=== PATIENT | male | born 1970 | race Caucasian/White ===

== ENCOUNTER 2023-10-29 02:33 | Inpatient (IN) | payer OTHER, SELFPAY ==
[2023-10-29] MEDS ORDERED: MORPHINE 4 MG/ML SYR ONE (03:30)
[2023-10-29] MEDS ORDERED: ONDANSETRON 4 MG/2 ML VIAL ONE ×2 (03:30→05:59)
[2023-10-29 03:34] LABS: Absolute Lymphocytes (CBC) 1.6 K/uL (0.7-4.9); Hematocrit 48.3 % (39.6-49.0); Lymphocytes % 13.8 % (15.3-44.8); MCV 89.7 fL (80-100); Platelets 202 thou/uL (152-406); RBC Red Blood Cell Count 5.38 M/uL (4.33-5.43)
[2023-10-29 03:51] LABS: Albumin 3.3 g/dL (3.4-5.0); Bilirubin Total 0.7 mg/dL (0.2-1.0); Potassium 3.9 mEq/L (3.5-5.1); Protein, Total 7.2 g/dL (6.4-8.2)
[2023-10-29 04:36] LABS: Specific Gravity 1.018 (1.005-1.030); Urine Bacteria None Seen /HPF (<20); Urine Bilirubin NEGATIVE (Negative); Urine Blood Negative (Negative); Urine Clarity Clear (Clear); Urine Color Light-Yellow (Yellow); Urine Glucose NEGATIVE (Negative); Urine Mucus Slight /HPF (None Seen); Urine Protein 1+ (Negative); Urine RBC <5 /HPF (None Seen); Urine Urobilinogen Normal (Normal); Urine WBC Clump Rare /HPF (None Seen); Urine pH 5.5 (5.0-7.0)
[2023-10-29] MEDS ORDERED: LOSARTAN POTASSIUM 50 MG TABLET ONE (06:00)
[2023-10-29] MEDS ORDERED: HYDRALAZINE HCL 20 MG/ML VIAL ONE (06:04)
--- NOTE | 2023-10-29 07:15 | EDPHYS ---
Physician Documentation [facility] Name: Kuldeep Abdullahi Age: 53 yrs Sex: Male : 1970 Arrival Date: 10/29/2023 Time: 02:33 Bed 7 Private MD: ED Physician Adam Woods HPI: 10/29 04:17 This 53 yrs old Male presents to ER via EMS with unknown complaint. kdr 04:17 This 53 yrs old Male presents to ER via EMS with complaints of Left upper quadrant and kdr flank pain. 04:21 This 53 yrs old Male presents to ER via EMS with complaints of left flank and Upper kdr quadrant pain. 04:17 Patient presents today with left upper quadrant and flank pain. The patient states that kdr this is pain that he has had intermittently and persistently for a year or more. He states that he has been diagnosed with renal calculi at [facility] in [place]. He has subsequently not had follow-up. Patient states that chronically he has mild to moderate pain in his left upper quadrant and left flank with occasions of severe pain in the same region. Normally the pain comes and goes fairly quickly. Occasionally the pain is much longer lasting as it is today. There is otherwise nothing new about the pain aside from his persistence and severity today. The patient is otherwise nontoxic-appearing. Onset: The symptoms/episode began/occurred suddenly, just prior to arrival. Severity of symptoms: At their worst the symptoms were severe incapacitating in the emergency department the symptoms have improved markedly. The patient has experienced similar episodes in the past, multiple times. The patient has not recently seen a physician. Historical: - Allergies: 02:55 Lisinopril; jw7 - Home Meds: 02:55 None [Active]; jw7 - PMHx: 02:55 Hypertension; jw7 - PSHx: 02:55 Appendectomy; Left Knee; jw7 - Immunization history:: Adult Immunizations up to date, Client reports receiving the 2nd dose of the Covid vaccine, Last tetanus immunization: unknown, Flu vaccine is not up to date. - Social history:: Smoking status: Patient reports the use of cigarette tobacco products, smokes one pack cigarettes per day. Patient/guardian denies using alcohol, street drugs, IV drugs. ROS: 04:21 Constitutional: Negative for fever, chills, and weight loss, Eyes: Negative for injury, kdr pain, redness, and discharge, Neck: Negative for injury, pain, and swelling, Cardiovascular: Negative for chest pain, palpitations, and edema, Respiratory: Negative for shortness of breath, cough, wheezing, and pleuritic chest pain, : Negative for injury, bleeding, discharge, and swelling, MS/Extremity: Negative for injury and deformity, Skin: Negative for injury, rash, and discoloration, Neuro: Negative for headache, weakness, numbness, tingling, and seizure activity. Psych: Negative for depression, anxiety, suicide ideation, homicidal ideation, and hallucinations, Allergy/Immunology: Negative for hives, rash, and allergies, Endocrine: Negative for neck swelling, polydipsia, polyuria, polyphagia, and marked weight changes, Hematologic/Lymphatic: Negative for swollen nodes, abnormal bleeding, and unusual bruising, 04:21 Abdomen/GI: Positive for abdominal pain, nausea, Negative for diarrhea, constipation, anorexia, dysphagia, hematemesis, black/tarry stool, rectal pain, rectal bleeding, bowel incontinence, 04:21 Back: Positive for pain at rest, pain with movement, flank pain, on the left, Exam: 04:21 Constitutional: This is a well developed, well nourished patient who is awake, alert, kdr and in mild to moderate distress. Head/Face: Normocephalic, atraumatic. Eyes: Pupils equal round and reactive to light, extra-ocular motions intact. Lids and lashes normal. Conjunctiva and sclera are non-icteric and not injected. Cornea within normal limits. Periorbital areas with no swelling, redness, or edema. Neck: Trachea midline, no thyromegaly or masses palpated, and no cervical lymphadenopathy. Supple, full range of motion without nuchal rigidity, or vertebral point tenderness. No Meningismus. Chest/axilla: Normal chest wall appearance and motion. Nontender with no deformity. No lesions are appreciated. Cardiovascular: Regular rate and rhythm with a normal S1 and S2. No gallops, murmurs, or rubs. Normal PMI, no JVD. No pulse deficits. Respiratory: Lungs have equal breath sounds bilaterally, clear to auscultation and percussion. No rales, rhonchi or wheezes noted. No increased work of breathing, no retractions or nasal flaring. Skin: Warm, dry with normal turgor. Normal color with no rashes, no lesions, and no evidence of cellulitis. MS/ Extremity: Pulses equal, no cyanosis. Neurovascular intact. Full, normal range of motion. Neuro: Awake and alert, GCS 15, oriented to person, place, time, and situation. Cranial nerves II-XII grossly intact. Motor strength 5/5 in all extremities. Sensory grossly intact. Cerebellar exam normal. Normal gait. Psych: Awake, alert, with orientation to person, place and time. Behavior, mood, and affect are within normal limits. 04:21 Abdomen/GI: Inspection: abdomen appears normal, Bowel sounds: active, Palpation: soft, mild abdominal tenderness, in the anterior aspect of left lateral abdomen, posterior aspect of left lateral abdomen and left upper quadrant, rebound tenderness, is not appreciated, Vital Signs: 02:52 BP 203 / 137; Pulse 100; Resp 16 S; Temp 98.5(O); Pulse Ox 95% on R/A; Weight 74.84 kg; jw7 Height 5 ft. 8 in. ; Pain 3/10; 05:20 BP 198 / 130; Pulse 102; Pulse Ox 92% on 4 lpm NC; tm6 06:20 BP 189 / 118; Pulse 98; Resp 16 S; Pulse Ox 92% on 4 lpm NC; jw7 07:58 BP 188 / 102; Pulse 99; Resp 18; Pulse Ox 90% on R/A; ld1 02:52 Body Mass Index 25.09 (74.84 kg, 172.72 cm) [facility] 02:52 Pain Scale: Adult jw7 MDM: 04:21 Data reviewed: vital signs, nurses notes, lab test result(s), radiologic studies. kdr 07:15 Patient medically screened. [facility] 10/29 02:54 Order name: CBC with Diff; Complete Time: 04:15 [facility] 10/29 02:54 Order name: CMP; Complete Time: 04:15 [facility] 10/29 02:54 Order name: Lipase; Complete Time: 04:15 [facility] 10/29 02:54 Order name: Urinalysis w/ reflexes; Complete Time: 04:55 [facility] 10/29 05:53 Order name: Troponin High Sensitivity; Complete Time: 07:56 [facility] 10/29 10:10 Order name: Troponin High Sensitivity [facility] 10/29 10:58 Order name: Lipid Profile [facility] 10/29 10:58 Order name: Lipid Profile [facility] 10/29 10:58 Order name: Troponin High Sensitivity [facility] 10/29 10:58 Order name: Troponin High Sensitivity [facility] 10/29 10:58 Order name: Troponin High Sensitivity [facility] 10/29 02:54 Order name: CT Stone Protocol [facility] 10/29 06:07 Order name: CT Chest W/ Con; Complete Time: 07:56 kdr 10/29 10:58 Order name: Echo with Doppler [facility] 10/29 10:58 Order name: CONS Physician Consult [facility] 10/29 02:54 Order name: IV Saline Lock; Complete Time: 03:30 kdr 10/29 02:54 Order name: Labs collected and sent; Complete Time: 03:30 kdr 10/29 05:53 Order name: EKG - Nurse/Tech; Complete Time: 06:30 kdr Administered Medications: 03:40 Drug: Ondansetron IVP 4 mg IVP once; over 2 minutes Route: IVP; Site: left antecubital; jw7 05:53 Follow up: Response: No adverse reaction; Marked relief of symptoms jw7 03:40 Drug: morphine IVP or IV 4 mg IVP once over 4 mins Route: IVP; Infused Over: 4 mins; jw7 Site: left antecubital; 05:53 Follow up: Response: No adverse reaction; Marked relief of symptoms jw7 06:06 Not Given (Other Intervention Used; Change order): [id number] mg PO once kdr 06:17 Drug: Ondansetron IVP 4 mg IVP once; over 2 minutes Route: IVP; Site: left antecubital; jw7 06:17 Drug: hydrALAZINE IVP 10 mg IVP once Route: IVP; Site: left antecubital; jw7 Disposition Summary: 10/29/23 07:15 Hospitalization Ordered Notes: Hospitalization Status: Inpatient Admission kdr Provider: Butch Beyer Condition: Fair kdr Problem: an acute exacerbation kdr Symptoms: have improved kdr Bed/Room Type: Standard kdr Location: Intensive Care Unit(10/29/23 11:06) eb Room Assignment: 2-(10/29/23 11:06) eb Diagnosis - [place] Pain kdr - Hypoxia (82-85% RA) kdr Forms: - Medication Reconciliation Form kdr - SBAR form kdr - Leadership Thank You Letter kdr Signatures: Dispatcher [employer] Adam Gonzales MD MD kdr Botello, Elizabeth eb Waits, Jodi, RN RN jw7 Vanessa Marques, MANAGER PLANT MANAGER PLANT 12 Corrections: (The following items were deleted from the chart) 11: 07:15 Telemetry/MedSurg (Inpatient) kimmy pepe 11: 07:15 kimmy pepe
--- NOTE | 2023-10-29 07:15 | ER ---
Nurse's Notes [facility] Name: Kuldeep Abdullahi Age: 53 yrs Sex: Male : 1970 Arrival Date: 10/29/2023 Time: 02:33 Bed 7 Private MD: Diagnosis: [place] Pain;Hypoxia (82-85% RA) Presentation: 10/29 02:52 Chief complaint: Patient states: "I've been having Left Upper Quadrant pain that comes jw7 and goes and has gotten worse. The pain never goes completely away it just decreases slightly". Coronavirus screen: At this time, the client does not indicate any symptoms associated with coronavirus-19. Ebola Screen: No symptoms or risks identified at this time. Initial Sepsis Screen: Does the patient meet any 2 criteria? No. Patient's initial sepsis screen is negative. Does the patient have a suspected source of infection? No. Patient's initial sepsis screen is negative. Risk Assessment: Do you want to hurt yourself or someone else? Patient reports no desire to harm self or others. Onset of symptoms was October 29, 2023. 02:52 Method Of Arrival: EMS: [facility] 7 02:52 Acuity: JUS 3 jw7 03:01 Care prior to arrival: IV initiated. 20 GA, in the left antecubital area. jw7 Triage Assessment: 02:55 General: Appears in no apparent distress. uncomfortable, Behavior is calm, cooperative. jw7 Pain: Complains of pain in left upper quadrant Pain radiates to right upper quadrant Pain currently is 3 out of 10 on a pain scale. Quality of pain is described as squeezing, throbbing, Pain began gradually, Is episodic. EENT: No deficits noted. No signs and/or symptoms were reported regarding the EENT system. Neuro: Maldonado Agitation-Sedation Scale (RASS): 0 - Alert and Calm Level of Consciousness is awake, alert, obeys commands, Oriented to person, place, time, situation. Cardiovascular: Capillary refill < 3 seconds Clubbing of nail beds is absent JVD is absent Patient's skin is warm and dry. Respiratory: Airway is patent Trachea midline Respiratory effort is even, unlabored, Respiratory pattern is regular, symmetrical. GI: Abdomen is flat, non-distended, Abdomen is tender to palpation during painful episodes, but non-tender when episodes are over. : No deficits noted. No signs and/or symptoms were reported regarding the genitourinary system. Derm: Skin is intact, is healthy with good turgor, Skin is dry, Skin is normal, Skin temperature is warm. Musculoskeletal: Circulation, motion, and sensation intact. Range of motion: intact in all extremities. Historical: - Allergies: 02:55 Lisinopril; jw7 - Home Meds: 02:55 None [Active]; jw7 - PMHx: 02:55 Hypertension; jw7 - PSHx: 02:55 Appendectomy; Left Knee; jw7 - Immunization history:: Adult Immunizations up to date, Client reports receiving the 2nd dose of the Covid vaccine, Last tetanus immunization: unknown, Flu vaccine is not up to date. - Social history:: Smoking status: Patient reports the use of cigarette tobacco products, smokes one pack cigarettes per day. Patient/guardian denies using alcohol, street drugs, IV drugs. Screenin:01 [facility] ED Fall Risk Assessment (Adult) History of falling in the last 3 months, jw7 including since admission No falls in past 3 months (0 pts) Score/Fall Risk Level 0 - 2 = Low Risk Oriented to surroundings, Maintained a safe environment, Educated pt \\T\\ family on fall prevention, incl call for assistance when getting out of bed. Abuse screen: Denies threats or abuse. Denies injuries from another. Nutritional screening: No deficits noted. Tuberculosis screening: No symptoms or risk factors identified. Assessment: 03:01 General: See Triage Assessment. jw7 04:00 Reassessment: Patient appears in no apparent distress at this time. No changes from jw7 previously documented assessment. Patient and/or family updated on plan of care and expected duration. Pain level reassessed. Patient is alert, oriented x 3, equal unlabored respirations, skin warm/dry/pink. 05:00 Reassessment: Patient appears in no apparent distress at this time. Patient and/or jw7 family updated on plan of care and expected duration. Pain level reassessed. Patient is alert, oriented x 3, equal unlabored respirations, skin warm/dry/pink. Patient states symptoms have improved. 06:00 Reassessment: Patient appears in no apparent distress at this time. No changes from jw7 previously documented assessment. Patient and/or family updated on plan of care and expected duration. Pain level reassessed. Patient is alert, oriented x 3, equal unlabored respirations, skin warm/dry/pink. 07:58 General: Appears in no apparent distress. comfortable, Behavior is calm, cooperative, ld1 appropriate for age. Pain: Complains of pain in abdomen Pain does not radiate. Neuro: Level of Consciousness is awake, alert, obeys commands, Oriented to person, place, time, situation. Cardiovascular: Capillary refill < 3 seconds Patient's skin is warm and dry. Respiratory: Airway is patent Respiratory effort is even, unlabored. GI: Abdomen is flat, non-distended. : No signs and/or symptoms were reported regarding the genitourinary system. EENT: No signs and/or symptoms were reported regarding the EENT system. Derm: No signs and/or symptoms reported regarding the dermatologic system. Vital Signs: 02:52 BP 203 / 137; Pulse 100; Resp 16 S; Temp 98.5(O); Pulse Ox 95% on R/A; Weight 74.84 kg; jw7 Height 5 ft. 8 in. ; Pain 3/10; 05:20 BP 198 / 130; Pulse 102; Pulse Ox 92% on 4 lpm NC; tm6 06:20 BP 189 / 118; Pulse 98; Resp 16 S; Pulse Ox 92% on 4 lpm NC; jw7 07:58 BP 188 / 102; Pulse 99; Resp 18; Pulse Ox 90% on R/A; ld1 02:52 Body Mass Index 25.09 (74.84 kg, 172.72 cm) jw7 02:52 Pain Scale: Adult jw7 ED Course: 02:40 Patient arrived in ED. jw7 02:40 Adam Woods MD is Attending Physician. kdr 02:55 Triage completed. jw7 03:01 Patient has correct armband on for positive identification. Bed in low position. Call jw7 light in reach. Side rails up X2. 03:01 Arm band placed on. jw7 03:23 CT Stone Protocol In Process Unspecified. EDMS 07:09 Attending Physician role handed off by Adam Woods MD ms3 07:09 Robinson Mitchell DO is Attending Physician. ms3 07:09 Adam Woods MD is Attending Physician. ms3 07:12 CT Chest W/ Con In Process Unspecified. EDMS 07:14 Butch Beyer is Hospitalizing Provider. kdr 12:14 Troponin High Sensitivity Sent. ld1 Administered Medications: 03:40 Drug: Ondansetron IVP 4 mg IVP once; over 2 minutes Route: IVP; Site: left antecubital; jw7 05:53 Follow up: Response: No adverse reaction; Marked relief of symptoms jw7 03:40 Drug: morphine IVP or IV 4 mg IVP once over 4 mins Route: IVP; Infused Over: 4 mins; jw7 Site: left antecubital; 05:53 Follow up: Response: No adverse reaction; Marked relief of symptoms jw7 06:06 Not Given (Other Intervention Used; Change order): [id number] mg PO once kdr 06:17 Drug: Ondansetron IVP 4 mg IVP once; over 2 minutes Route: IVP; Site: left antecubital; jw7 06:17 Drug: hydrALAZINE IVP 10 mg IVP once Route: IVP; Site: left antecubital; jw7 Outcome: 07:15 Decision to Hospitalize by Provider. kdr 12:48 Patient left the ED. ld1 Signatures: Dispatcher [employer] EDMS Adam Woods MD MD kdr Robinson Mitchell DO DO ms3 Noni Mitchell RN RN ld1 Starla Jane RN RN jw7 Chetan Mosley RN RN tm6 Corrections: (The following items were deleted from the chart) 06:44 06:35 General: Attempted to call report, nurse will call back. jw7 jw7
--- NOTE | 2023-10-29 07:49 | RAD REPORT ---
EXAM DESCRIPTION: CT - Thorax W/ Con - 10/29/2023 7:10 am CLINICAL HISTORY: SOB COMPARISON: No comparisons TECHNIQUE: Axial thin cut images of the chest were obtained following intravenous administration of 95 mL Isovue-300. Multiplanar reformats were generated and reviewed. All CT scans are performed using dose optimization technique as appropriate and may include automated exposure control or mA/KV adjustment according to patient size. FINDINGS: No mass or infiltrate in the lung parenchyma. Platelike dependent atelectatic changes. No pleural thickening or pleural effusion. No pneumothorax. No abnormal mediastinal or hilar masses or lymphadenopathy seen. No significant aortic or pulmonary a rtery findings. Proximal pulmonary arteries are patent. No chest wall mass or abnormal axillary lymphadenopathy. Evaluation of the solid abdominal structures reveals no suspicious findings. Small renal cortical cys ts up to 1 cm bilaterally. IMPRESSION: No acute process within the chest.
--- NOTE | 2023-10-29 08:08 | P.HP ---
Patient History Date of Service: 10/29/23 Allergies No Known Allergies Allergy (Unverified 10/05/17 19:35) Physical Examination - Studies Laboratory Data (last 24 hrs) 10/29/23 10/29/23 03:26 03:26 WBC 11.60 H Hgb 16.5 Hct 48.3 Plt Count 202 Sodium 137 Potassium 3.9 BUN 27 H Creatinine 1.30 Glucose 130 H Total Bilirubin 0.7 AST 88 H ALT 95 H Alkaline Phosphatase 129 H Lipase 26 Assessment and Plan - Advance Directives Does patient have a Living Will: No Does patient have a Durable POA for Healthcare: No
[2023-10-29] MEDS ORDERED: HYDRALAZINE HCL 20 MG/ML VIAL IV PRN (10:52)
[2023-10-29] MEDS ORDERED: ACETAMINOPHEN 500 MG TAB PO PRN (10:52)
[2023-10-29] MEDS ORDERED: MORPHINE 4 MG/ML SYR IV PRN (10:52)
[2023-10-29] MEDS ORDERED: HYDROMORPHONE HCL 0.5 MG/0.5 ML INJ IV ONE (10:56)
[2023-10-29 13:11] VITALS: BMI 25.4
[2023-10-29] MEDS ORDERED: METOPROLOL TAR 50 MG TAB ONE (13:23)
[2023-10-29] MEDS ORDERED: HYDRALAZINE HCL 25 MG TABLET ONE (13:24)
[2023-10-29] MEDS: METOPROLOL TAR 50 MG TAB PO SCH ×2 (13:25→20:32)
[2023-10-29] MEDS: HYDRALAZINE HCL 25 MG TABLET PO SCH ×2 (13:26→20:32)
--- NOTE | 2023-10-29 15:15 | RAD REPORT ---
EXAM DESCRIPTION: CT - Stone Protocol - 10/29/2023 6:31 am CLINICAL HISTORY: Male, 53 years old, left flank pain COMPARISON: None. TECHNIQUE: CT acquisition of the abdomen and pelvis without contrast. Coronal and sagittal reformatt ed images provided. This exam was performed according to departmental dose-optimization program which includes automated exposure control, adjustment of the mA and/or kV according to patient size, and/o r use of iterative reconstruction technique. FINDINGS: SUPPORTIVE DEVICES: None. LOWER CHEST: Moderate cardiomegaly with interlobular septal thickening in the left greater than right lung bases. No airspace consolidation. ABDOMEN AND PELVIS: Lack of intravenous contrast limits evaluation of the abdominal and pelvic viscera and vascular struc tures. Liver: Unremarkable. Gallbladder and bile ducts: Unremarkable. Pancreas: Unremarkable. Spleen: Unremarkable. Adrenal glands: Unremarkable. Kidneys and ureters: No evidence of obstruction. Nonobstructing 2 mm stone in the right infrarenal co llecting system. Bladder: Nondistended without evident abnormality. Reproductive organs: Unremarkable as visualized. GI tract: Normal caliber without wall thickening. Post appendectomy change. Distal colonic diverticul osis without diverticulitis. Lymph nodes: No obvious adenopathy. Peritoneum: No evidence of ascites, fluid collection, or free air. Abdominal wall: No significant hernia. Vessels: Atherosclerosis without evidence of aneurysm. MUSCULOSKELETAL: No acute osseous abnormality. Degenerative change of the spine and pelvis. IMPRESSION: 1. No acute abdominopelvic finding or evidence of urinary obstruction. 2. Nonobstructing small right nephrolith. 3. Uncomplicated colonic diverticulosis. 4. Cardiomegaly and probable cardiogenic interstitial edema in the lung bases. Electronically signed by: Clemente Frank MD 10/29/2023 03:43 AM [employer] SUR[employer]YOR Due to temporary technical issues with the PACS/Fluency reporting system, reports are being signed by the in house radiologists without review as a courtesy to insure prompt reporting. The interpreting radiologist is fully responsible for the content of the report.
[2023-10-29] MEDS ORDERED: INFLUENZA VACCINE (for 6+ mo) 0.5 ML DOSE IMVAC ONE (16:00)
--- NOTE | 2023-10-29 17:12 | CON ---
Date of Consultation: 10/29/2023 Reason For Consultation: Elevated troponin. History Of Present Illness: 53-year-old male with a past medical history of hypertension, presented to the emergency room with abdominal pain, significant profound sweats and a severely elevated blood pressure in the 240 range. He said that this has been going on for some time and comes as episodes a nd attacks and also he does get some shortness of breath. Denies having any chest pain. Past Medical History: Hypertension. Medications: Refer to reconciliation sheet for detailed list. Allergies: NO KNOWN DRUG ALLERGIES. Family History: No premature coronary artery disease or cancer. Social History: Does not smoke or drink. Does not use any drugs. Review of Systems: All systems reviewed and they are negative except as mentioned in the HPI. Physical Examination: Vital Signs: Reviewed. Head and Neck: Pupils are equal, reactive to light. Intact eye movements. No JVD. No cervical lym phadenopathy. Neck is supple. Thyroid is not enlarged. Lungs: Clear to auscultation bilaterally. No rhonchi, wheezing, crackles. No accessory muscle use. Heart: Regular rate and rhythm. No extra sounds. Abdomen: Soft, nontender. Bowel sounds positive. No organomegaly. No masses or hernia. No rigidi ty or rebound. Extremities: No edema, clubbing, or cyanosis. Intact pulses. Skin: No rash or nodule. Neurologic: Alert, awake, oriented x3. No acute focal deficits appreciated. Investigations: Troponin 312 and then 330, BUN 27, creatinine 1.3, and hemoglobin 16.5. Assessment And Recommendations: 1.Elevated troponin. No chest pain. This is demand ischemia due to the hypertensive emergency. Pr eds adequate control of his blood pressure. 2.Hypertensive emergency. I believe this patient might be having this hypertensive crisis due to ad renal gland tumor, probably pheochromocytoma. He is on multiple antihypertensive agents to be maximi zed to get his blood pressure under control and I recommend workup for pheochromocytoma with a 24-sky r urine catecholamine tests and also might benefit from the abdominal MRI and a transfer to [facility] for this particular issue. 3.Severe left ventricular hypertrophy with the severe systolic heart failure, probably due to underl dany condition which is the hypertensive disease, but this needs further workup. 4.Elevated troponin. Again, this is likely demand ischemia. Further workup is indicated at least a stress test. Patient is not symptomatic, at this point, and I believe it is due to the elevation of his blood pressure. This patient will probably be served at a higher level of care facility. /RHONDA Voice ID: [id number] Report ID: [id number]
[2023-10-29] MEDS: ATORVASTATIN 40 MG TAB PO SCH (20:32)
[2023-10-29] MEDS ORDERED: LOSARTAN POTASSIUM 50 MG TABLET PO SCH (21:00)
--- NOTE | 2023-10-29 21:55 | P.HP ---
Certification for Inpatient Patient admitted to: Inpatient With expected LOS: >2 Midnights Patient will require the following post-hospital care: None Practitioner: I am a practitioner with admitting privileges, knowledge of patient current condition, hospital course, and medical plan of care. Services: Services provided to patient in accordance with Admission requirements found in Title 42 Section 412.3 of the Code of Federal Regulations Patient History Date of Service: 10/29/23 Reason for admission: Abdominal pain/chest discomfort/hypertensive emergency History of Present Illness: Patient is a 53-year-old gentleman whose had frequent abdominal discomfort. Patient has had similar complaints for the last couple of years. He developed severe abdominal pain along with diaphoresis and he feels like he is not able to do anything. The attacks normally last for about 30 minutes to an hour. They go away and he is able to continue with functioning during his day. They are normally exacerbated by activity. Patient states he was seen about a year ago at [facility] and was found to have nephrolithiasis. Patient has never had any cardiac workup. He has a history of tobacco use. Patient had a similar episode again this morning and in the emergency room was found to have a blood pressure of 230/130. Patient was also tachycardic. Patient was having severe abdominal discomfort and felt better after abdominal pain medication. Patient will be admitted to the hospital for further evaluation. Allergies No Known Allergies Allergy (Unverified 10/05/17 19:35) - Past Medical/Surgical History Has patient received pneumonia vaccine in the past: No Diabetic: No -: Nephrolithiasis -: Appendectomy -: left knee surgery - Family History Father History Unknown: Yes Medical History: Heart disease, Hypertension, GI disease Mother History Unknown: Yes Medical History: Heart disease, Diabetes, Cancer - Social History Smoking Status: Current some day smoker Alcohol use: No CD- Drugs: No Caffeine use: Yes Place of Residence: Home Review of Systems 10-point ROS is otherwise unremarkable Physical Examination - Vital Signs Temperature: 98.5 F Blood Pressure: 144/100 Pulse: 78 Respirations: 21 Pulse Ox (%): 97 - Physical Exam General: Alert, In no apparent distress, Oriented x3 HEENT: Atraumatic, PERRLA, Mucous membr. moist/pink, EOMI, Sclerae nonicteric Neck: Supple, 2+ carotid pulse no bruit, No LAD, Without JVD or thyroid abnormality Respiratory: Clear to auscultation bilaterally, Normal air movement Cardiovascular: Regular rate/rhythm, Normal S1 S2, Systolic murmur Gastrointestinal: Normal bowel sounds, Soft and benign, Non-distended, No tenderness Musculoskeletal: No clubbing, No swelling, No tenderness Integumentary: No rashes Neurological: Normal gait, Normal speech, Normal strength at 5/5 x4 extr, Normal tone, Sensation intact, Cranial nerves 3-12 intact, Normal affect Lymphatics: No axilla or inguinal lymphadenopathy - Studies Laboratory Data (last 24 hrs) 10/29/23 10/29/23 03:26 03:26 WBC 11.60 H Hgb 16.5 Hct 48.3 Plt Count 202 Sodium 137 Potassium 3.9 BUN 27 H Creatinine 1.30 Glucose 130 H Total Bilirubin 0.7 AST 88 H ALT 95 H Alkaline Phosphatase 129 H Lipase 26 Assessment & Plan - Problems (Diagnosis) (1) Abdominal pain Current Visit: Yes Status: Acute (2) Hypertensive emergency Current Visit: Yes Status: Acute (3) Tachyarrhythmia Current Visit: Yes Status: Acute (4) Non-STEMI (non-ST elevated myocardial infarction) Current Visit: Yes Status: Acute (5) Hypertrophic cardiomyopathy Current Visit: Yes Status: Acute (6) HFrEF (heart failure with reduced ejection fraction) Current Visit: Yes Status: Acute - Plan Plan: 1. Patient with abdominal pain along with chest discomfort and hypertensive emergency. Patient's echocardiogram revealed hypertrophic cardiomyopathy with an ejection fraction of roughly 20%. Seen by cardiology and no aggressive cardiac intervention at this time. Patient will need extensive cardiac workup as an outpatient. Patient will be started on medication for strict blood pressure control. Will gradually reduce blood pressure slowly. Patient's blood pressure currently was 190/110. Will continue to reduce the blood pressure slowly over the next 24 hours. Low-dose diuretic along with beta-carlo therapy. Will probably start Entresto in the morning. Echocardiogram completed. Appreciate cardiology input. Will also work him up for secondary causes of hypertensive disease. Patient with hypertensive emergency and we will go ahead and check a renin, aldosterone, cortisol, and catecholamine levels. With his abdominal pain and diaphoresis along with the tachycardia and hypertension may need to also check for porphyrins. Since were doing 24-hour urine collection for the catecholamines I will also check patient patient's urine porphyrin levels. Patient will need monitoring in the intensive care unit. Critical care time spent on patient care was greater than 50 minutes. Discharge Plan: Home Plan to discharge in: Greater than 2 days - Advance Directives Does patient have a Living Will: No Does patient have a Durable POA for Healthcare: Yes - Code Status/Comfort Care Code Status Assessed: Yes Code Status: Full Code Critical Care: Yes Time Spent Managing PTS Care (In Minutes): 55
[2023-10-30] MEDS ORDERED: HYDRALAZINE HCL 20 MG/ML VIAL ONE (02:15)
[2023-10-30] MEDS: ALPRAZOLAM 0.25 MG TABLET PO PRN ×2 (02:22→21:17)
[2023-10-30 04:53] LABS: Absolute Lymphocytes (CBC) 1.7 K/uL (0.7-4.9); Hematocrit 48.6 % (39.6-49.0); Lymphocytes % 20.3 % (15.3-44.8); MCV 91.4 fL (80-100); MPV 9.2 fL (7.6-11.3); Platelets 192 thou/uL (152-406); RBC Red Blood Cell Count 5.31 M/uL (4.33-5.43)
[2023-10-30 05:15] LABS: Bilirubin Total 0.6 mg/dL (0.2-1.0); Magnesium 2.2 mg/dL (1.6-2.4); Phosphorus 2.9 mg/dL (2.5-4.9); Protein, Total 6.8 g/dL (6.4-8.2)
[2023-10-30] MEDS ORDERED: ASPIRIN 81 MG CHEWABLE TABLET ONE (08:07)
[2023-10-30] MEDS: METOPROLOL TAR 50 MG TAB PO SCH ×3 (08:12→21:16)
[2023-10-30] MEDS: ASPIRIN EC 81 MG TAB PO SCH (08:12)
[2023-10-30] MEDS: HYDRALAZINE HCL 25 MG TABLET PO SCH ×3 (08:13→21:16)
[2023-10-30] MEDS: ENOXAPARIN 40 MG/0.4 ML SQ SCH (08:13)
[2023-10-30] MEDS: SACUBITRIL/VALSARTAN 24/26 MG TAB PO SCH ×2 (08:14→21:16)
[2023-10-30] MEDS: ATORVASTATIN 40 MG TAB PO SCH (21:17)
[2023-10-31] MEDS: ALPRAZOLAM 0.25 MG TABLET PO PRN ×2 (04:30→20:59)
[2023-10-31] MEDS: ASPIRIN EC 81 MG TAB PO SCH (09:13)
[2023-10-31] MEDS: HYDRALAZINE HCL 25 MG TABLET PO SCH ×3 (09:13→19:35)
[2023-10-31] MEDS: METOPROLOL TAR 50 MG TAB PO SCH ×3 (09:13→19:35)
[2023-10-31] MEDS: SACUBITRIL/VALSARTAN 24/26 MG TAB PO SCH ×2 (09:13→19:36)
[2023-10-31] MEDS: ENOXAPARIN 40 MG/0.4 ML SQ SCH (09:14)
[2023-10-31] MEDS: ATORVASTATIN 40 MG TAB PO SCH (19:35)
[2023-11-01] MEDS: ALPRAZOLAM 0.25 MG TABLET PO PRN (04:51)
[2023-11-01 05:56] VITALS: O2SAT 98
--- NOTE | 2023-11-01 07:11 | ECHO ---
HEIGHT: 5 ft 8 in WEIGHT: 167 lb 0 oz DATE OF STUDY: 10/29/[address]: Arlet Jo MD 2-DIMENSIONAL: YES M.MODE: YES DOPPLER: YES COLOR FLOW: YES TDS: PORTABLE: YES DEFINITY: BUBBLE STUDY: DIAGNOSIS: ANTERIOR MYOCARDIAL INFARCTION CARDIAC HISTORY: CATHERIZATION: NO SURGERY: NO PROSTHETIC VALVE: NO PACEMAKER: NO MEASUREMENTS (cm) DIASTOLIC (NORMALS) SYSTOLIC (NORMALS) IVSd 1.6 (0.6-1.2) LA Diam 3.7 (1.9-4.0) LVEF 25% LVIDd 5.1 (3.5-5.7) LVIDs 4.5 (2.0-3.5) %FS 11% LVPWd 1.6 (0.6-1.2) Ao Diam 3.1 (2.0-3.7) 2 DIMENSIONAL ASSESSMENT: RIGHT ATRIUM: NORMAL LEFT ATRIUM: ENLARGED RIGHT VENTRICLE: NORMAL LEFT VENTRICLE: SEVERE LEFT VENTRICULAR HYPERTROPHY TRICUSPID VALVE: MILD TRICUSPID REGURGITATION MITRAL VALVE: MILD MITRAL REGURGITATION PULMONIC VALVE: MILD PULMONIC INSUFFICIENCY AORTIC VALVE: MILD AORTIC INSUFFICIENCY PERICARDIAL EFFUSION: TRACE AORTIC ROOT: LEFT VENTRICULAR WALL MOTION: SEVERE GLOBAL HYPOKINESIS DOPPLER/COLOR FLOW: SEE BELOW COMMENTS: 1. SEVERELY DEPRESSED LEFT VENTRICULAR EJECTION FRACTION 25-30% 2. SEVERE GLOBAL HYPOKINESIS 3. SEVERE CONCENTRIC LEFT VENTRICULAR HYPERTROPHY 4. MILD MITRAL REGURGITATION, TRICUSPID REGURGITATION, PULMONIC INSUFFICIENCY, 5. AORTIC INSUFFICIENCY 6. LEFT ATRIAL ENLARGEMENT 7. MODERATE DIASTOLIC DYSFUNCTION TECHNOLOGIST: ASIYA HENAO
[2023-11-01] MEDS: METOPROLOL TAR 50 MG TAB PO SCH ×2 (08:39→13:52)
[2023-11-01] MEDS: ENOXAPARIN 40 MG/0.4 ML SQ SCH (08:39)
[2023-11-01] MEDS: HYDRALAZINE HCL 25 MG TABLET PO SCH ×2 (08:39→13:52)
[2023-11-01] MEDS: SACUBITRIL/VALSARTAN 24/26 MG TAB PO SCH (08:39)
[2023-11-01] MEDS: ASPIRIN EC 81 MG TAB PO SCH (08:39)
[2023-11-01 09:20] VITALS: TEMP 97.7
--- NOTE | 2023-11-01 13:17 | P.PN ---
Subjective Date of Service: 10/30/23 Subjective: No new changes, No C/O voiced, Improving Spoke with Cardiology. Patient was hypertrophic cardiomyopathy from uncontrolled hypertension. Patient with an ejection fraction of 20-25%. Recommending outpatient follow-up for further cardiac workup. As long as we can maintain patient's blood pressure well controlled patient should be able to discharge over the next 24-48 hours. Review of Systems 10-point ROS is otherwise unremarkable Physical Examination - Vital Signs Temperature: 97.7 F Blood Pressure: 155/100 Pulse: 74 Respirations: 18 Pulse Ox (%): 98 - Physical Exam General: Alert, In no apparent distress, Oriented x3 HEENT: Atraumatic, PERRLA, EOMI Neck: Supple, JVD not distended Respiratory: Clear to auscultation bilaterally, Normal air movement Cardiovascular: Regular rate/rhythm, Normal S1 S2, Systolic murmur Gastrointestinal: Normal bowel sounds, Soft and benign, W/out succussion splash, No tenderness Musculoskeletal: No clubbing, No swelling, No tenderness Integumentary: No rashes Neurological: Normal speech, Normal tone, Sensation intact, Cranial nerves 3-12 intact, Normal affect Lymphatics: No axilla or inguinal lymphadenopathy - Studies Medications List Reviewed: Yes Assessment & Plan - Problems (Diagnosis) (1) Abdominal pain Current Visit: Yes Status: Acute (2) Hypertensive emergency Current Visit: Yes Status: Acute (3) Tachyarrhythmia Current Visit: Yes Status: Acute (4) Non-STEMI (non-ST elevated myocardial infarction) Current Visit: Yes Status: Acute (5) Hypertrophic cardiomyopathy Current Visit: Yes Status: Acute (6) HFrEF (heart failure with reduced ejection fraction) Current Visit: Yes Status: Acute - Plan Plan: 1. Patient is doing much better clinically. Continue with cardiac meds as recommended per Cardiology. The patient does not have any health insurance so plan is to try to get this done as an outpatient in follow-up in the outpatient with Cardiology. Initially, patient is going to need to maintain strict blood pressure control. Patient will continue with diuretics. Patient will need to reassess with the repeat echocardiogram in 3-6 months. No further cardiac intervention at this time. Possible DC in the morning. Will transfer to [facility]. Discharge Plan: Home Plan to discharge in: Greater than 2 days - Advance Directives Does patient have a Living Will: No Does patient have a Durable POA for Healthcare: Yes - Code Status/Comfort Care Code Status: Full Code Critical Care: No Time Spent Managing PTS Care (In Minutes): 35
--- NOTE | 2023-11-01 13:20 | P.PN ---
Date of Service: 10/31/23 Subjective Subjective: Spoke with Cardiology. Patient was [facility]. Patient with an ejection fraction of 20-25%. Recommending outpatient follow-up for further cardiac workup. As long as we can maintain patient's blood pressure well controlled patient should be able to discharge over the next 24-48 hours. Physical Examination - Vital Signs reviewed - Physical Exam General: Alert, In no apparent distress, Oriented x3 Respiratory: Clear to auscultation bilaterally, Normal air movement Cardiovascular: Regular rate/rhythm, Normal S1 S2, Systolic murmur Gastrointestinal: Normal bowel sounds, Soft and benign, W/out succussion splash, No tenderness Musculoskeletal: No clubbing, No swelling, No tenderness Neurological: No focal deficits Assessment & Plan - Problems (Diagnosis) (1) Abdominal pain Current Visit: Yes Status: Acute (2) Hypertensive emergency Current Visit: Yes Status: Acute (3) Tachyarrhythmia Current Visit: Yes Status: Acute (4) Non-STEMI (non-ST elevated myocardial infarction) Current Visit: Yes Status: Acute (5) Hypertrophic cardiomyopathy Current Visit: Yes Status: Acute (6) HFrEF (heart failure with reduced ejection fraction) Current Visit: Yes Status: Acute - Plan Plan: 1. Patient is doing well. Patient denies any chest pain or shortness of breath. It spoke with patient regarding Cardiology recommendation for outpatient follow-up. He states that he will work on trying to get his disability. His blood pressure is fairly well controlled. Spoke with Cardiology yesterday and the plan was for patient to follow-up as an outpatient for further cardiac intervention as needed. Patient does need to maintain strict blood pressure control. Patient will continue with cardiac medications and will also continue with anti-platelet and statin therapy. At this time, patient is clinically doing well and patient should be able to discharge home. Patient did have secondary hypertension workup pending. Urine he was sent off for catecholamines, and metanephrines. Blood work for renin and aldosterone level. This can be followed up as an outpatient. - Code Status/Comfort Care Code Status: Full Code Critical Care: No Time Spent Managing PTS Care (In Minutes): 35
--- NOTE | 2023-11-01 14:35 | P.PN ---
Subjective Date of Service: 11/01/23 Chief Complaint: Abdominal pain/chest discomfort/hypertensive emergency Pt is resting comfortably in bed. He is eager to go home. Waiting for Cardiology recommendation. BP is improving. Waiting for lab work up. No other complaints. Review of Systems Unremarkable General: Unremarkable Eyes: Unremarkable ENT: Unremarkable Respiratory: Unremarkable Cardiovascular: Unremarkable Gastrointestinal: Unremarkable Genitourinary: Unremarkable Musculoskeletal: Unremarkable Integumentary: Unremarkable Neurological: Unremarkable Lymphatics: Unremarkable Physical Examination - Vital Signs Temperature: 97.7 F Blood Pressure: 148/88 Pulse: 80 Respirations: 18 Pulse Ox (%): 98 - Physical Exam General: Alert, In no apparent distress, Oriented x3 HEENT: Atraumatic, Normocephalic Neck: Supple, 2+ carotid pulse no bruit Respiratory: Clear to auscultation bilaterally, Normal air movement Cardiovascular: No edema, Normal pulses, Regular rate/rhythm, Normal S1 S2 Capillary refill: <2 Seconds Gastrointestinal: Normal bowel sounds, Soft and benign, Non-distended Musculoskeletal: No clubbing, No swelling Integumentary: No rashes, No breakdown Neurological: Normal speech, Normal strength at 5/5 x4 extr Lymphatics: No axilla or inguinal lymphadenopathy - Studies Medications List Reviewed: Yes Assessment And Plan - Plan Hypertensive emergency; Improved. Will continue metoprolol and hydralazine. Will follow up lab work: metanephrine, renin, aldosterone and cortisol. NSTEMI: Likely due to elevated Htn. cardiology evaluated pt. Pt denies any chest pain. Hypertensive cardiomyopathy/ heart failure: Echo shows EF 25 - 30% with moderate diastolic dysfunction. Will continue entresto and BB. Abd pain: resolved. DVt ppx: SCD Dispo: pending hospital course.
--- NOTE | 2023-11-01 17:42 | P.DS ---
Admission Date: 10/29/23 Discharge Date: 11/01/23 Disposition: ROUTINE DISCHARGE Discharge Condition: GOOD Reason for Admission: Abdominal pain/chest discomfort/hypertensive emergency Brief History of Present Illness: Patient is a 53-year-old gentleman whose had frequent abdominal discomfort. Patient has had similar complaints for the last couple of years. He developed severe abdominal pain along with diaphoresis and he feels like he is not able to do anything. The attacks normally last for about 30 minutes to an hour. They go away and he is able to continue with functioning during his day. They are normally exacerbated by activity. Patient states he was seen about a year ago at [facility] and was found to have nephrolithiasis. Patient has never had any cardiac workup. He has a history of tobacco use. Patient had a similar episode again this morning and in the emergency room was found to have a blood pressure of 230/130. Patient was also tachycardic. Patient was having severe abdominal discomfort and felt better after abdominal pain medication. Patient will be admitted to the hospital for further evaluation. Hospital Course: Patient is a 53yo male with past medical history of tobacco abuse and htn who presents with hypertensive emergency. On admission, pt presented with BP of 230/130. It was associated with abdominal paina nd tachycardia. We admitted pt and controlled BP. the Hypertensive emergency resolved with iv antihypertensives. We optimized BP regimen by giving hydralazine, entresteo and metoprolol. We also ordered lab work up to find out he etiology of uncontrolled hypertension. Pt will follow up with his PCP and Dr. Reynaga in clinic for the result of the lab work ( renin, aldosterone, cortisone and metanephrine). Pt's symptoms resolved and he requested to be discharged. We gave him coupon for the Entresto. Pt was in NAD prior to discharge. Vital Signs/Physical Exam: Temp Pulse Resp BP Pulse Ox 97.7 F 80 18 148/88 H 98 11/01/23 17:37 11/01/23 17:37 11/01/23 17:37 11/01/23 17:37 11/01/23 17:37 Laboratory Data at Discharge: WBC 8.10 thou/uL (4.3-10.9) 10/30/23 04:17 Hgb 16.6 g/dL (13.6-17.9) 10/30/23 04:17 Hct 48.6 % (39.6-49.0) 10/30/23 04:17 Plt Count 192 thou/uL (152-406) 10/30/23 04:17 Sodium 137 mEq/L (136-145) 10/30/23 04:17 Potassium 4.0 mEq/L (3.5-5.1) 10/30/23 04:17 BUN 24 mg/dL (7-18) H 10/30/23 04:17 Creatinine 1.21 mg/dL (0.70-1.30) 10/30/23 04:17 Glucose 108 mg/dL (74-106) H 10/30/23 04:17 Phosphorus 2.9 mg/dL (2.5-4.9) 10/30/23 04:17 Magnesium 2.2 mg/dL (1.6-2.4) 10/30/23 04:17 Total Bilirubin 0.6 mg/dL (0.2-1.0) 10/30/23 04:17 AST 123 U/L (15-37) H 10/30/23 04:17 ALT 115 U/L (16-61) H 10/30/23 04:17 Alkaline Phosphatase 168 U/L (45-117) H D 10/30/23 04:17 Triglycerides 66 mg/dL (<150) 10/30/23 04:17 Cholesterol 122 mg/dL (<200) 10/30/23 04:17 HDL Cholesterol 42 mg/dL (40-60) 10/30/23 04:17 Cholesterol/HDL Ratio 2.90 10/30/23 04:17 Lipase 26 U/L (13-75) 10/29/23 03:26 Home Medications: Aspirin [Aspirin EC] 81 mg PO DAILY 90 Days #90 tab 11/01/23 Atorvastatin Calcium [Lipitor] 40 mg PO BEDTIME 90 Days #90 tab 11/01/23 Hydralazine [Apresoline*] 25 mg PO TID 60 Days #120 tab 11/01/23 Metoprolol Tartrate [Lopressor*] 50 mg PO TID 60 Days #120 tab 11/01/23 Sacubitril/Valsartan [Entresto 24 mg-26 mg Tablet] 1 tab PO BID 60 Days #120 tab 11/01/23 New Medications: Hydralazine [Apresoline*] 25 mg PO TID 60 Days #120 tab Aspirin [Aspirin EC] 81 mg PO DAILY 90 Days #90 tab Sacubitril/Valsartan [Entresto 24 mg-26 mg Tablet] 1 tab PO BID 60 Days #120 tab Atorvastatin Calcium [Lipitor] 40 mg PO BEDTIME 90 Days #90 tab Metoprolol Tartrate [Lopressor*] 50 mg PO TID 60 Days #120 tab Physician Discharge Instructions: -DC IV and DC home -Follow-up with PCP in 1 to 2 weeks -Follow-up with Cardiology in 1 to 2 weeks -Please call Dr. Jo at [phone] if any questions regarding hospital stay -Please call nursing station at [phone] if any nursing or medication questions -Return to the emergency room if symptoms worsen Diet: AHA Activity: Fall precautions Followup: Gab Reynaga MD [ACTIVE - CAN ADMIT] - Sammy Hopkins MD [ACTIVE - CAN ADMIT] -
[2023-11-01 17:48] VITALS: BP 148/88
--- NOTE | 2023-11-04 13:53 | EKG ---
Test Date: 2023-10-29 Test Time: 06:27:59 Recording Clerk: ALEX MEASUREMENT RESULTS: Intervals: Rate: 95 CA: 160 QRSD: 120 QT: 410 QTc: 515 Girard: P: 71 CA: 160 QRS: -65 T: 101 INTERPRETIVE STATEMENTS: Normal sinus rhythm Biatrial enlargement Pulmonary disease pattern Left anterior fascicular block Left ventricular hypertrophy with QRS widening ST & T wave abnormality, consider lateral ischemia Abnormal ECG Compared to ECG 10/05/2017 14:52:11 Atrial abnormality now present Left anterior fascicular block now present Left ventricular hypertrophy now present Electronically Signed On 11-04-23 13:30:37 GRAPHIC TECHNICIAN by Gab Reynaga
== END 2023-11-01 18:46 | disposition home or self-care (01) | DRG 280 ==
LOC: ER 02:33 → ERHOLD 10:16 → 3RD-ICU 12:44 → 2ND 10-30 20:37
PROVIDERS: ADMIT Hospitalist; ATTEND Hospitalist
DX: I16.1 Hypertensive emergency (principal); I50.21 Acute systolic (congestive) heart failure; I21.A1 Myocardial infarction type 2; I42.2 Other hypertrophic cardiomyopathy; I11.0 Hypertensive heart disease with heart failure; N20.0 Calculus of kidney; I11.9 Hypertensive heart disease without heart failure; F17.210 Nicotine dependence, cigarettes, uncomplicated; R09.02 Hypoxemia; Z90.49 Acquired absence of other specified parts of digestive tract; Z79.82 Long term (current) use of aspirin; Z79.899 Other long term (current) drug therapy
CPT/HCPCS: 36415; 71260; 74176; 76377; 80053; 80061; 81001; 82088; 82384; 82533; 83690; 83735; 83835; 83880; 84100; 84120; 84244; 84484; 85025; 93005; 93306; 96374; 96375; 99284; J0360; J1650; J2405; Q9967

== ENCOUNTER 2024-07-31 21:09 | Emergency (ER) | payer OTHER ==
[2024-07-31] MEDS ORDERED: ONDANSETRON 4 MG/2 ML VIAL ONE (21:50)
[2024-07-31] MEDS ORDERED: MORPHINE 4 MG/ML SYR ONE (21:51)
[2024-07-31 21:56] LABS: Absolute Basophils 0.1 K/uL (0-0.5); Absolute Eosinophils 0.3 K/uL (0-0.5); Absolute Lymphocytes (CBC) 1.7 K/uL (0.7-4.9); Absolute Monocytes 1.2 K/uL (0.1-1.3); Basophils % 0.7 % (0-1.3); Eosinophils % 2.3 % (0-4.4); Hematocrit 53.6 % (39.6-49.0); Hemoglobin 17.7 g/dL (13.6-17.9); Lymphocytes % 14.9 % (15.3-44.8); MCH 30.2 pg (27.0-35.0); MCHC 33.1 g/dL (32.0-36.0); MCV 91.3 fL (80-100); MPV 9.3 fL (7.6-11.3); Monocytes % 10.4 % (3.3-12.3); Neutrophils % 71.7 % (41.7-73.7); Platelets 206 thou/uL (152-406); RBC Red Blood Cell Count 5.87 M/uL (4.33-5.43); Red Cell Distribution Width 13.5 % (12.1-15.2)
[2024-07-31 22:05] LABS: Specific Gravity 1.018 (1.005-1.030); Sqamous Epithelial <5 /HPF (None Seen); Urine Bacteria None Seen /HPF (<20); Urine Bilirubin NEGATIVE (Negative); Urine Blood Trace (Negative); Urine Clarity Clear (Clear); Urine Color Light-Yellow (Yellow); Urine Culture Reflex Order NOT NEEDED; Urine Glucose TRACE (Negative); Urine Ketones TRACE (Negative); Urine Microscopic Reflex YN ORDER UMIC; Urine Mucus Slight /HPF (None Seen); Urine Nitrite NEGATIVE (Negative); Urine Protein 1+ (Negative); Urine RBC <5 /HPF (None Seen); Urine Urobilinogen Normal (Normal); Urine WBC <5 /HPF (<5)
[2024-07-31 22:15] LABS: Albumin 3.8 g/dL (3.4-5.0); Albumin/Globulin Ratio 0.9 (1.1-1.8); Anion Gap 11.6 mEq/L (5.0-15.0); Bilirubin Total 0.6 mg/dL (0.2-1.0); Globulin 4.1 g/dL (2.3-3.5); Potassium 3.6 mEq/L (3.5-5.1); Protein, Total 7.9 g/dL (6.4-8.2)
[2024-07-31 22:17] LABS: Troponin High Sensitivity 306.6 pg/mL (<58.9)
--- NOTE | 2024-07-31 22:24 | RAD REPORT ---
Procedure: Chest Single View HISTORY: Chest pain COMPARISON: October 2023 FINDINGS: The lungs appear clear of acute infiltrate. No significant pleural effusion noted. The heart is moderately to markedly enlarged. IMPRESSION: No acute abnormality is displayed.
[2024-08-01] MEDS ORDERED: LABETALOL 20 MG/4ML SYRINGE IV ONE (00:04)
[2024-08-01] MEDS ORDERED: droPERidol 5 MG/2 ML VIAL ONE (00:04)
--- NOTE | 2024-08-01 01:05 | ER ---
Nurse's Notes [facility] Name: Kuldeep Abdullahi Age: 54 yrs Sex: Male : 1970 Arrival Date: 07/31/2024 Time: 21:09 Bed 5 Private MD: Diagnosis: Upper abdominal pain, unspecified;Elevated Troponin;Essential (primary) hypertension Presentation: 07/31 21:42 Chief complaint: Patient states: Today started coughing up mucus then vomited a couple vc1 of times now my stomach hurts really bad. Coronavirus screen: Client denies travel out of the [place] in the last 14 days. At this time, the client does not indicate any symptoms associated with coronavirus-19. Ebola Screen: Patient negative for fever greater than or equal to 101.5 degrees Fahrenheit, and additional compatible Ebola Virus Disease symptoms Patient denies exposure to infectious person. Patient denies travel to an Ebola-affected area in the 21 days before illness onset. No symptoms or risks identified at this time. Initial Sepsis Screen: Does the patient meet any 2 criteria? No. Patient's initial sepsis screen is negative. Does the patient have a suspected source of infection? No. Patient's initial sepsis screen is negative. Risk Assessment: Do you want to hurt yourself or someone else? Patient reports no desire to harm self or others. Onset of symptoms was July 31, 2024. 21:42 Method Of Arrival: Ambulatory vc1 21:42 Acuity: JUS 3 vc1 Triage Assessment: 21:48 General: Appears in no apparent distress. uncomfortable, Behavior is cooperative. Pain: vc1 Complains of pain in epigastric area, right upper quadrant and left upper quadrant Pain does not radiate. Pain currently is 8 out of 10 on a pain scale. Quality of pain is described as sharp. EENT: No deficits noted. No signs and/or symptoms were reported regarding the EENT system. Neuro: Level of Consciousness is awake, alert, obeys commands, Oriented to person, place, time, situation, Appropriate for age. Cardiovascular: Denies chest pain, Heart tones S1 S2 Capillary refill < 3 seconds Patient's skin is warm and dry. Respiratory: Airway is patent Respiratory effort is even, unlabored, Respiratory pattern is regular, symmetrical. GI: Abdomen is flat, non-distended, Abd is soft Abdomen is tender to palpation Reports epigastric pain. : No deficits noted. No signs and/or symptoms were reported regarding the genitourinary system. Derm: Skin is intact, is healthy with good turgor, Skin is dry, Skin is normal, Skin temperature is warm. Musculoskeletal: Circulation, motion, and sensation intact. Range of motion: intact in all extremities. Historical: - Allergies: 21:47 Lisinopril; vc1 - PMHx: 21:47 Hypertension; vc1 - PSHx: 21:47 Appendectomy; left knee; vc1 - Immunization history:: Client reports receiving the 2nd dose of the Covid vaccine. - Infectious Disease History:: Denies. - Social history:: Smoking status: Patient reports the use of cigarette tobacco products, smokes one pack cigarettes per day. Screenin:11 [facility] ED Fall Risk Assessment (Adult) History of falling in the last 3 months, al5 including since admission No falls in past 3 months (0 pts) Confusion or Disorientation No (0 pts) Intoxicated or Sedated No (0 pts) Impaired Gait No (0 pts) Mobility Assist Device Used No (0 pt) Altered Elimination No (0 pt) Score/Fall Risk Level 0 - 2 = Low Risk Oriented to surroundings, Maintained a safe environment, Hourly rounding (assess needs \T\ fall precautionary measures) done. Abuse screen: Denies threats or abuse. Denies injuries from another. Nutritional screening: No deficits noted. Tuberculosis screening: No symptoms or risk factors identified. Assessment: 22:10 General: Appears in no apparent distress. uncomfortable, Behavior is calm, cooperative. al5 Pain: Complains of pain in epigastric area. Neuro: Level of Consciousness is awake, alert, obeys commands, Oriented to person, place, time, situation. Cardiovascular: Capillary refill < 3 seconds Patient's skin is warm and dry. Respiratory: Airway is patent Respiratory effort is even, unlabored, Respiratory pattern is regular, symmetrical. GI: Abdomen is round non-distended, Bowel sounds present X 4 quads. Abd is soft X 4 quads Abdomen is tender to palpation in epigastric area Reports upper abdominal pain, nausea. : No signs and/or symptoms were reported regarding the genitourinary system. EENT: No signs and/or symptoms were reported regarding the EENT system. Derm: Skin is intact, Skin is pink, warm \T\ dry. normal. Musculoskeletal: No signs and/or symptoms reported regarding the musculoskeletal system. 23:20 Reassessment: Patient appears in no apparent distress at this time. No changes from al5 previously documented assessment. Patient and/or family updated on plan of care and expected duration. Pain level reassessed. Patient is alert, oriented x 3, equal unlabored respirations, skin warm/dry/pink. pain decreased. 08/01 00:17 Reassessment: Patient appears in no apparent distress at this time. No changes from al5 previously documented assessment. Patient and/or family updated on plan of care and expected duration. Pain level reassessed. Patient is alert, oriented x 3, equal unlabored respirations, skin warm/dry/pink. Vital Signs: 07/31 21:30 BP 252 / 129; Pulse 85; Resp 19; Pulse Ox 98% on R/A; al5 21:42 BP 248 / 132; Pulse 87; Resp 25; Pulse Ox 99% ; Weight 83.01 kg; Height 5 ft. 8 in. ; vc1 Pain 05/13; 21:45 BP 254 / 129; Pulse 83; Resp 17; Pulse Ox 98% on R/A; al5 22:00 BP 247 / 132; Pulse 84; Resp 19; Pulse Ox 97% on R/A; al5 22:30 BP 228 / 137; Pulse 83; Resp 19; Pulse Ox 96% on R/A; al5 23:00 BP 226 / 128; Pulse 79; Resp 19; Pulse Ox 97% on R/A; al5 23:30 BP 218 / 135; Pulse 80; Resp 18; Pulse Ox 96% on R/A; al5 23:53 BP 218 / 135; ec2 08/01 00:00 BP 228 / 137; Pulse 76; Resp 18; Pulse Ox 97% on R/A; al5 00:26 BP 196 / 122; ec2 00:30 BP 200 / 115; Pulse 73; Resp 19; Pulse Ox 94% on R/A; al5 00:59 BP 198 / 119; ec2 01:19 BP 187 / 109; Pulse 77; Resp 17; Temp 98.2; Pulse Ox 96% ; dd2 07/31 21:42 Body Mass Index 27.82 (83.01 kg, 172.72 cm) vc1 21:42 Pain Scale: Adult vc1 ED Course: 07/31 21:11 Patient arrived in ED. [id number] 21:36 Kaushik Fuentes MD is Attending Physician. ec2 21:39 Lucero Kirby, FRED is Primary Nurse. al5 21:47 Triage completed. vc1 21:48 Arm band placed on left wrist. EKG completed in triage. Results shown to MD. vc1 21:57 Inserted saline lock: 20 gauge in right forearm, using aseptic technique. al5 21:57 Initial lab(s) drawn, by me, sent to lab. al5 21:57 Urine collected: clean catch specimen, clear, bereket colored. al5 22:10 CXR XRAY In Process Unspecified. EDMS 22:12 Patient has correct armband on for positive identification. Bed in low position. Call al5 light in reach. Side rails up X 1. Provided Education on: plan of care. 22:12 No provider procedures requiring assistance completed. al5 23:20 CT Abd/Pelvis - IV Contrast Only In Process Unspecified. EDMS 08/01 01:06 Hair Waddell MD is Referral Physician. ec2 01:22 IV discontinued, intact, bleeding controlled, No redness/swelling at site. Pressure dd2 dressing applied. Administered Medications: 07/31 21:57 Drug: Ondansetron IVP 4 mg IVP once; over 2 minutes Route: IVP; Site: right forearm; al5 08/01 00:17 Follow up: Response: No adverse reaction; Nausea is decreased al5 07/31 21:57 Drug: morphine IVP or IV 4 mg IVP once over 4 mins Route: IVP; Infused Over: 4 mins; al5 Site: right forearm; 08/01 00:17 Follow up: Response: No adverse reaction; Pain is unchanged, physician notified al5 00:14 Drug: Labetalol IV 10 mg IV at bolus once Route: IV; Rate: bolus; Site: right forearm; al5 00:24 Follow up: IV Status: Completed infusion; IV Intake: 10ml dd2 00:29 Follow up: Response: No adverse reaction dd2 00:14 Drug: Droperidol IVP 1.25 mg IVP once Route: IVP; Site: right forearm; al5 00:30 Follow up: Response: No adverse reaction dd2 Medication: 00:16 VIS not applicable for this client. al5 Intake: 00:24 IV: 10ml; Total: 10ml. dd2 Outcome: 01:04 Discharge ordered by . ec2 01:22 Discharged to home ambulatory, dd2 01:22 Condition: stable 01:22 Discharge instructions given to patient, Instructed on discharge instructions, follow up and referral plans. medication usage, Demonstrated understanding of instructions, follow-up care, medications, Prescriptions given X 1, 01:23 Patient left the ED. dd2 Signatures: Dispatcher [employer] EDFelicitas [id number] Abena Ramirez, RN RN vc1 Kaushik Fuentes MD MD ec2 Lucero Kirby RN RN al5 MEÑO MOYER RN RN dd2
--- NOTE | 2024-08-01 01:05 | EDPHYS ---
Physician Documentation [facility] Name: Kuldeep Abdullahi Age: 54 yrs Sex: Male : 1970 Arrival Date: 07/31/2024 Time: 21:09 Bed 5 Private MD: ED Physician Kaushik Fuentes HPI: 07/31 22:04 This 54 yrs old Male presents to ER via Ambulatory with complaints of ec2 Abdominal Pain. 22:04 Patient with history of appendectomy arrives today for abdominal pain. Patient reports ec2 upper abdominal pain with associated nausea and vomiting. Patient reports decreased p.o. intake. Reports history of hypertension, not taking his medications due to cost.. Historical: - Allergies: 21:47 Lisinopril; vc1 - PMHx: 21:47 Hypertension; vc1 - PSHx: 21:47 Appendectomy; left knee; vc1 - Immunization history:: Client reports receiving the 2nd dose of the Covid vaccine. - Infectious Disease History:: Denies. - Social history:: Smoking status: Patient reports the use of cigarette tobacco products, smokes one pack cigarettes per day. ROS: 22:04 Constitutional: as per hpi ec2 Exam: 22:04 Constitutional: GEN: NAD Head: atraumatic Eyes: EOMI Ears: External ears are ec2 normal. CV: regular rate LUNGS: no respiratory distress ABD: non-distended, soft, not guarding, not rigid SKIN: no evidence of rashes MSK: no evidence of trauma Vital Signs: 21:30 BP 252 / 129; Pulse 85; Resp 19; Pulse Ox 98% on R/A; al5 21:42 BP 248 / 132; Pulse 87; Resp 25; Pulse Ox 99% ; Weight 83.01 kg; Height 5 ft. 8 in. ; vc1 Pain 8/10; 21:45 BP 254 / 129; Pulse 83; Resp 17; Pulse Ox 98% on R/A; al5 22:00 BP 247 / 132; Pulse 84; Resp 19; Pulse Ox 97% on R/A; al5 22:30 BP 228 / 137; Pulse 83; Resp 19; Pulse Ox 96% on R/A; al5 23:00 BP 226 / 128; Pulse 79; Resp 19; Pulse Ox 97% on R/A; al5 23:30 BP 218 / 135; Pulse 80; Resp 18; Pulse Ox 96% on R/A; al5 23:53 BP 218 / 135; ec2 08/01 00:00 BP 228 / 137; Pulse 76; Resp 18; Pulse Ox 97% on R/A; al5 00:26 BP 196 / 122; ec2 00:30 BP 200 / 115; Pulse 73; Resp 19; Pulse Ox 94% on R/A; al5 00:59 BP 198 / 119; ec2 01:19 BP 187 / 109; Pulse 77; Resp 17; Temp 98.2; Pulse Ox 96% ; dd2 07/31 21:42 Body Mass Index 27.82 (83.01 kg, 172.72 cm) vc1 21:42 Pain Scale: Adult vc1 MDM: 07/31 21:36 Medical Screening Exam initiated ec2 21:44 ED course: Independently reviewed and interpreted by me, shows sinus rhythm, rate of ec2 82, no acute ST segment elevations, levels are nonactionable, does have some nonspecific T wave abnormalities noted in the lateral leads.. 22:04 Data reviewed: vital signs. ED course: Patient arrives today for evaluation of ec2 abdominal pain. Examination remarkable for well-appearing nontoxic individual was otherwise in no acute distress with a reassuring examination. Obtain lab work, chest x-ray, CT imaging and treat morphine. Differential includes intra-abdominal pathology such as pancreatitis, cholecystitis, also considered acs. . 22:06 ED course: Patient is noted to be markedly hypertensive, will evaluate for endorgan ec2 dysfunction. Patient reportedly has been on 3 outpatient antihypertensives at home however has not been on these for some time.. 22:54 ED course: CBC is reassuring, metabolic profile shows renal dysfunction with a ec2 creatinine 1.63, GFR 49. Urine is noninfectious appearing. Troponin is elevated at the restaurant, when compared to external records, this is similar. Will obtain repeat EKG and troponin as well. Chest x-ray shows no acute intrathoracic process. . 08/01 00:20 ED course: Repeat EKG independently reviewed and interpreted by me, shows normal sinus ec2 rhythm, rate of 75, no acute ST segment elevations, intervals are nonactionable. Does have nonspecific T wave abnormalities in the lateral leads. . 00:26 ED course: CT on pelvis with no acute intra-abdominal process noted. Patient with ec2 diverticulosis without diverticulitis, renal cyst appreciated. Does have thickened bladder, urine is noninfectious appearing.. 00:50 ED course: Repeat troponin is static today.. ec2 01:03 ED course: Reassessment patient is asymptomatic and is well-appearing no acute distress ec2 will discharge home have the patient follow-up with primary care. Will start the patient on hydrochlorothiazide for antihypertensive. Return precautions given. Regards to patient's elevated troponin, patient with a static troponin here today as well as recently elevated troponins, appear unchanged.. 07/31 21:37 Order name: CBC with Diff; Complete Time: 22:53 ec2 07/31 21:37 Order name: CMP; Complete Time: 22:53 ec2 07/31 21:37 Order name: Lipase; Complete Time: 22:53 ec2 07/31 21:37 Order name: Urinalysis w/ reflexes; Complete Time: 22:53 ec2 07/31 21:37 Order name: Troponin High Sensitivity; Complete Time: 22:53 ec2 07/31 23:39 Order name: Troponin High Sensitivity; Complete Time: 00:50 ec2 07/31 21:37 Order name: CT Abd/Pelvis - IV Contrast Only ec2 07/31 21:37 Order name: CXR XRAY; Complete Time: 22:53 ec2 07/31 21:37 Order name: IV Saline Lock; Complete Time: 21:57 ec2 07/31 21:37 Order name: Labs collected and sent; Complete Time: 21:57 ec2 07/31 21:37 Order name: EKG - Nurse/Tech; Complete Time: 21:57 ec2 07/31 23:39 Order name: Misc. Order: repeat EKG/Trop; Complete Time: 00:14 ec2 07/31 23:39 Order name: EKG - Nurse/Tech; Complete Time: 00:14 ec2 Administered Medications: 07/31 21:57 Drug: Ondansetron IVP 4 mg IVP once; over 2 minutes Route: IVP; Site: right forearm; al5 08/01 00:17 Follow up: Response: No adverse reaction; Nausea is decreased al5 07/31 21:57 Drug: morphine IVP or IV 4 mg IVP once over 4 mins Route: IVP; Infused Over: 4 mins; al5 Site: right forearm; 08/01 00:17 Follow up: Response: No adverse reaction; Pain is unchanged, physician notified al5 00:14 Drug: Labetalol IV 10 mg IV at bolus once Route: IV; Rate: bolus; Site: right forearm; al5 00:24 Follow up: IV Status: Completed infusion; IV Intake: 10ml dd2 00:29 Follow up: Response: No adverse reaction dd2 00:14 Drug: Droperidol IVP 1.25 mg IVP once Route: IVP; Site: right forearm; al5 00:30 Follow up: Response: No adverse reaction dd2 Disposition Summary: 08/01/24 01:04 Discharge Ordered Notes: Location: Home ec2 Condition: Stable ec2 Diagnosis - Upper abdominal pain, unspecified ec2 - Elevated Troponin ec2 - Essential (primary) hypertension ec2 Followup: ec2 - With: Private Physician - When: - Reason: Re-evaluation by your physician Followup: ec2 - With: Hair Waddell MD - When: - Reason: Recheck today's complaints Discharge Instructions: - Discharge Summary Sheet ec2 - Abdominal Pain, Adult ec2 Forms: - Medication Reconciliation Form ec2 - Antibiotic Education ec2 - Prescription Opioid Use ec2 - Patient Portal Instructions ec2 - Leadership Thank You Letter ec2 Prescriptions: - Hydrochlorothiazide 12.5 mg Oral Tablet - take 1 tablet ORAL route once daily; 30 tablet; Refills: 0, Product Selection ec2 Permitted Signatures: Dispatcher [employer] EDMS Abena Ramirez RN RN vc1 Kaushik Fuentes MD MD ec2 Lucero Kirby RN RN al5 MEÑO MOYER RN dd2 Corrections: (The following items were deleted from the chart) 00:27 00:26 ED course: CT on pelvis with no acute intra-abdominal process noted. Patient with ec2 diverticulosis without diverticulitis, renal cyst appreciated. Does have thickened bladder, pending urine studies.. ec2
[2024-08-01 03:47] VITALS: BP 187/109; TEMP 98.2; O2SAT 96
--- NOTE | 2024-08-01 07:11 | RAD REPORT ---
EXAM: Abdomen Pelvis W Contrast CLINICAL INDICATION: 54-year-old male with abdominal pain. COMPARISON: None. EXAMINATION: CT of the abdomen and pelvis was performed following intravenous administration of contr ast. Oral contrast was not administered. Multiplanar reformatted images were provided. This exam was performed according to our departmental dose optimization program which includes use of automated exposure control, adjustment of the mA and/or kV according to patient size and/or use of iterative reconstruction technique. FINDINGS: Chest: Evaluation through the lung bases reveals no focal opacity, pleural effusion or pneumothorax. Heart size is within normal limits. No pericardial effusion. Abdomen and pelvis: The liver, gallbladder, pancreas, spleen, and bilateral adrenal glands are within normal limits. Irregular morphology of the bilateral kidneys suggesting scarring. Right renal cyst measures 2.9 cm and 8 Hounsfield units. Bosniak type I. No focal imaging is recommen ded. Exophytic left renal cyst measures 35 Hounsfield units, indeterminate and 1.5 cm. Further evaluation with sonography may be considered. The vessels are patent and normal in caliber. No abdominopelvic lymph nodes are noted to be pathologically enlarged by CT measurement criteria. The bowel is within normal limits without abnormal bowel wall thickness or bowel dilation. Diverticul ar disease without findings to suggest diverticulitis. No free air. No free abdominopelvic fluid collections. The appendix is not identified. Thickened appearance of the bladder wall may be secondary to incomplete distention, however can be se en in the setting of infectious or inflammatory process. Please correlate with laboratory values. The osseous structures are within normal limits. IMPRESSION: 1. No specific acute intra-abdominal findings are noted to suggest etiology of the patient's abdomi nal pain. 2. Thickened appearance of the bladder wall may be secondary to incomplete distention, however can be seen in the setting of infectious or inflammatory process. Please correlate with laboratory values. 3. Diverticular disease without findings to suggest diverticulitis. 4. Exophytic left renal cyst measures 35 Hounsfield units, indeterminate and 1.5 cm. Further evalua tion with sonography may be considered. Electronically signed by: Marbella Anderson MD 08/01/2024 12:13 AM CDT RP Due to temporary technical issues with the PACS/[employer] reporting system, reports are being damaso d by the in-house radiologist without review as a courtesy to ensure prompt reporting the interpreting radiologist is fully responsible for the content of the report. Transcribed Date/Time: 08/01/2024 7:11 AM
--- NOTE | 2024-08-02 14:52 | EKG ---
Test Date: 2024-08-01 Test Time: 00:08:04 [employer]cher Utility: [employer] MEASUREMENT RESULTS: Intervals: Rate: 75 MO: 168 QRSD: 124 QT: 444 QTc: 495 [place]: P: 64 MO: 168 QRS: -54 T: 159 INTERPRETIVE STATEMENTS: Normal sinus rhythm Biatrial enlargement Left anterior fascicular block Left ventricular hypertrophy with QRS widening and repolarization abnormality Septal infarct, age undetermined Abnormal ECG Compared to ECG 07/31/2024 21:40:01 No significant changes Electronically Signed On 08-02-24 14:47:02 CDT by Gab Reynaga
--- NOTE | 2024-08-02 14:53 | EKG ---
Test Date: 2024-07-31 Test Time: 21:40:01 Director Of People: NAKIA MEASUREMENT RESULTS: Intervals: Rate: 82 [place]: 174 QRSD: 120 QT: 426 QTc: 497 [place]: P: 65 [place]: 174 QRS: -57 T: 142 INTERPRETIVE STATEMENTS: Normal sinus rhythm Possible Left atrial enlargement Left anterior fascicular block Left ventricular hypertrophy with QRS widening and repolarization abnormality Septal infarct, age undetermined Abnormal ECG Compared to ECG 10/29/2023 06:27:59 Early repolarization now present Myocardial infarct finding now present ST (T wave) deviation no longer present Possible ischemia no longer present Electronically Signed On 08-02-24 14:47:15 CDT by Gab Reynaga
== END 2024-08-01 01:23 | disposition home or self-care (01) ==
LOC: ER 21:09
DX: R10.10 Upper abdominal pain, unspecified (principal); R79.89 Other specified abnormal findings of blood chemistry; I10 Essential (primary) hypertension; R11.2 Nausea with vomiting, unspecified; F17.210 Nicotine dependence, cigarettes, uncomplicated
CPT/HCPCS: 85025; 81001; 36415; 84484 ×2; 83690; 80053; 74177; 71045; Q9967; J2405; J1790; 93005; 96374; 96375; 99284

== ENCOUNTER 2024-08-13 10:24 | Inpatient (IN) | payer OTHER ==
[2024-08-13] MEDS ORDERED: ONDANSETRON 4 MG/2 ML VIAL ONE ×2 (10:51→14:23)
[2024-08-13] MEDS ORDERED: HYDRALAZINE HCL 20 MG/ML VIAL ONE (10:51)
[2024-08-13 11:16] LABS: Absolute Eosinophils 0.3 K/uL (0-0.5); Absolute Lymphocytes (CBC) 1.5 K/uL (0.7-4.9); Absolute Monocytes 0.9 K/uL (0.1-1.3); Basophils % 0.5 % (0-1.3); Eosinophils % 2.6 % (0-4.4); Hematocrit 54.9 % (39.6-49.0); Hemoglobin 18.2 g/dL (13.6-17.9); Lymphocytes % 15.7 % (15.3-44.8); MCH 30.5 pg (27.0-35.0); MCHC 33.2 g/dL (32.0-36.0); MCV 91.9 fL (80-100); MPV 9.5 fL (7.6-11.3); Monocytes % 9.7 % (3.3-12.3); Neutrophils % 71.5 % (41.7-73.7); Nucleated Red Blood Cells % 0.1 % (0-0); Platelets 207 thou/uL (152-406); RBC Red Blood Cell Count 5.98 M/uL (4.33-5.43); Red Cell Distribution Width 13.8 % (12.1-15.2)
[2024-08-13] MEDS ORDERED: NA CHLORIDE 0.9% 500 ML ONE (11:26)
[2024-08-13 11:36] LABS: Albumin 3.7 g/dL (3.4-5.0); Albumin/Globulin Ratio 0.9 (1.1-1.8); Anion Gap 6.7 mEq/L (5.0-15.0); Bilirubin Total 0.6 mg/dL (0.2-1.0); Globulin 4.3 g/dL (2.3-3.5); Potassium 3.7 mEq/L (3.5-5.1)
[2024-08-13 11:38] LABS: Troponin High Sensitivity 173.2 pg/mL (<58.9)
--- NOTE | 2024-08-13 12:07 | RAD REPORT ---
EXAMINATION: ONE VIEW CHEST XR CLINICAL INDICATION: Male, 54 years old.,PAIN TECHNIQUE: Frontal chest projection is submitted. Examination is limited by patient positioning and t echnique. COMPARISON: 07/31/2024 FINDINGS: The lungs are well inflated and clear. No pneumothorax or sizable effusion. The heart is normal in s ize. Mediastinal contours are unremarkable. IMPRESSION: No acute intrathoracic abnormalities.
[2024-08-13] MEDS ORDERED: Nicardipine/NS 25 MG/250 ML KIT IV ONE ×2 (12:16→15:38)
[2024-08-13] MEDS ORDERED: ACETAMINOPHEN 325 MG TABLET PO PRN (12:24)
--- NOTE | 2024-08-13 12:27 | ER ---
Nurse's Notes [facility] Name: Kuldeep Abdullahi Age: 54 yrs Sex: Male : 1970 Arrival Date: 08/13/2024 Time: 10:24 Bed 17 Private MD: Diagnosis: Essential (primary) hypertension;Elevated troponin Presentation: 08/13 10:29 Chief complaint: Patient states: "I just didn't feel good so I took my blood pressure aa5 and it was high 225/109". Pt also c/o abd pain and reports was recently seen for HTN and abd pain in the ER and was prescribed Hydrochlorothiazide. 10:29 Coronavirus screen: At this time, the client does not indicate any symptoms associated aa5 with coronavirus-19. Ebola Screen: Patient denies travel to an Ebola-affected area in the 21 days before illness onset. Initial Sepsis Screen: Does the patient meet any 2 criteria? No. Patient's initial sepsis screen is negative. Does the patient have a suspected source of infection? No. Patient's initial sepsis screen is negative. Risk Assessment: Do you want to hurt yourself or someone else? Patient reports no desire to harm self or others. Onset of symptoms was August 13, 2024. 10:29 Acuity: JUS 2 aa5 10:29 Method Of Arrival: Ambulatory aa5 Historical: - Allergies: 10:30 Lisinopril; aa5 - PMHx: 10:30 Hypertension; aa5 - PSHx: 10:30 Appendectomy; left knee; aa5 - Immunization history:: Adult Immunizations up to date. - Infectious Disease History:: Denies. - Social history:: Smoking status: Patient reports the use of cigarette tobacco products, denies chronic smoking, but will smoke occasionally. Screenin:48 [facility] ED Fall Risk Assessment (Adult) History of falling in the last 3 months, kc6 including since admission No falls in past 3 months (0 pts) Confusion or Disorientation No (0 pts) Intoxicated or Sedated No (0 pts) Impaired Gait No (0 pts) Mobility Assist Device Used No (0 pt) Altered Elimination No (0 pt) Score/Fall Risk Level 0 - 2 = Low Risk Oriented to surroundings. Abuse screen: Denies threats or abuse. Denies injuries from another. Nutritional screening: No deficits noted. Tuberculosis screening: No symptoms or risk factors identified. Assessment: 10:46 General: Appears in no apparent distress. comfortable, well groomed, well developed, kc6 Behavior is calm, cooperative, appropriate for age. Pain: Complains of pain in epigastric area. Neuro: Level of Consciousness is awake, alert, obeys commands, Oriented to person, place, time, situation, Appropriate for age Reports headache. Cardiovascular: Denies chest pain, shortness of breath, Capillary refill < 3 seconds Rhythm is sinus rhythm. Respiratory: Airway is patent Trachea midline Respiratory effort is even, unlabored, Respiratory pattern is regular, symmetrical. GI: Reports epigastric pain, nausea, Patient currently denies diarrhea, vomiting. : No signs and/or symptoms were reported regarding the genitourinary system. EENT: No signs and/or symptoms were reported regarding the EENT system. Derm: No signs and/or symptoms reported regarding the dermatologic system. Skin is intact, is healthy with good turgor, Skin is pink, warm \\T\\ dry. Musculoskeletal: No signs and/or symptoms reported regarding the musculoskeletal system. Circulation, motion, and sensation intact. Capillary refill < 3 seconds, Range of motion: intact in all extremities. 11:46 Reassessment: Patient appears in no apparent distress at this time. No changes from kc6 previously documented assessment. Patient and/or family updated on plan of care and expected duration. Pain level reassessed. Patient is alert, oriented x 3, equal unlabored respirations, skin warm/dry/pink. 12:35 Reassessment: Patient appears in no apparent distress at this time. No changes from kc6 previously documented assessment. Patient and/or family updated on plan of care and expected duration. Pain level reassessed. Patient is alert, oriented x 3, equal unlabored respirations, skin warm/dry/pink. 13:28 Reassessment: Patient appears in no apparent distress at this time. No changes from kc6 previously documented assessment. Patient and/or family updated on plan of care and expected duration. Pain level reassessed. Patient is alert, oriented x 3, equal unlabored respirations, skin warm/dry/pink. 14:31 Reassessment: Patient appears in no apparent distress at this time. No changes from kc6 previously documented assessment. Patient and/or family updated on plan of care and expected duration. Pain level reassessed. Patient is alert, oriented x 3, equal unlabored respirations, skin warm/dry/pink. 20:34 Reassessment: Patient appears in no apparent distress at this time. Patient and/or kj2 family updated on plan of care and expected duration. Pain level reassessed. Patient is alert, oriented x 3, equal unlabored respirations, skin warm/dry/pink. 21:16 Reassessment: 2034 hep drip stopped per protocol ptt is 154. kj2 21:18 Reassessment: remaining heparin bag sent with patient to room 216. kj2 Vital Signs: 10:29 BP 209 / 120; Pulse 85; Resp 16 S; Temp 97.5(TE); Pulse Ox 98% on R/A; Weight 79.38 kg aa5 (R); Height 5 ft. 8 in. (R); 11:02 BP 196 / 114; Pulse 84; Resp 18 S; Pulse Ox 99% on R/A; kc6 11:08 BP 189 / 108; kc6 11:31 BP 188 / 98; Pulse 86; Resp 20 S; Pulse Ox 99% on R/A; kc6 11:47 BP 199 / 100; kc6 11:53 BP 214 / 99; Pulse 91; Resp 20 S; Pulse Ox 100% on R/A; kc6 12:35 BP 207 / 101; Pulse 88; Resp 18 S; Pulse Ox 99% on R/A; kc6 12:51 BP 199 / 100; kc6 13:29 BP 181 / 100; Pulse 106; Resp 20 S; Pulse Ox 97% on R/A; kc6 14:31 BP 191 / 97; Pulse 111; Resp 18 S; Pulse Ox 94% on R/A; kc6 14:52 BP 174 / 90; Pulse 110; Resp 15 S; Pulse Ox 98% on R/A; kc6 20:33 BP 160 / 84; Pulse 69; Resp 18; Temp 98(O); Pulse Ox 95% on R/A; kj2 10:29 Body Mass Index 26.61 (79.38 kg, 172.72 cm) aa5 ED Course: 10:27 Patient arrived in ED. sj2 10:28 Patriz[facility] Muller F[facility]-C [facility] kb 10:28 Olu Hubbard MD is Attending Physician. kb 10:29 Arm band placed on. aa5 10:33 Triage completed. aa5 10:34 Sonya Wilkinson, RN is Primary Nurse. kc6 10:47 Patient maintains SpO2 saturation greater than 95% on room air. kc6 10:47 Inserted saline lock: 18 gauge in right antecubital area, using aseptic technique. kc6 Blood collected. Flushed with 10 mL NS. 10:48 Patient has correct armband on for positive identification. Bed in low position. Call kc6 light in reach. Side rails up X 1. Adult w/ patient. chief nuclear medicine technologist on. Pulse ox on. NIBP on. Door closed. Noise minimized. Lights dimmed. Pillow given. 10:59 EKG done, by ED staff, reviewed by Patrizia GARY. em1 11:27 XRAY Chest (1 view) In Process Unspecified. EDMS 11:30 Warm blanket given. kc6 12:26 Ace Centeno MD is Hospitalizing Provider. kb 12:26 Provided Education on: Nicardipine Drip and need for ICU admit. kc6 12:26 No provider procedures requiring assistance completed. Patient admitted, IV remains in kc6 place. 16:13 Inserted saline lock: 18 gauge in left forearm, using aseptic technique. Blood kc6 collected. Flushed with 10 mL NS. Administered Medications: 11:02 Drug: Ondansetron IVP 4 mg IVP once; over 2 minutes Route: IVP; Site: right antecubital;kc6 21:20 Follow up: Response: Nausea is decreased kj2 11:02 Drug: hydrALAZINE IVP 10 mg IVP once Route: IVP; Site: right antecubital; kc6 11:23 Follow up: Response: No adverse reaction; Blood pressure is lowered kc6 11:30 Drug: NS 0.9% IV 500 ml IV at bolus once; to be given as a bolus over 30 minutes Route: kc6 IV; Rate: bolus; Site: right antecubital; 11:47 Follow up: Response: No adverse reaction; IV Status: Completed infusion; IV Intake: kc6 500ml 11:30 Drug: hydrALAZINE IVP 10 mg IVP once Route: IVP; Site: right antecubital; kc6 11:47 Follow up: Response: No adverse reaction; Blood pressure is unchanged kc6 12:35 Drug: niCARdipine IV 5 mg/hr IV at per protocol See Administration Instructions; kc6 (Standard concentration 25 mg / 250 mL NS); Recommended max rate 15 mg/hr; Titrate 2.5 mg/hr as often as every 15 minutes to achieve goal (see titration policy); Goal parameter SBP less than 160 mmHg Route: IV; Rate: per protocol; Site: right antecubital; 12:52 Follow up: Response: No adverse reaction; Blood pressure is unchanged; Rate change 7.5 kc6 mg/hr; IV Status: Infusion continued 13:00 Follow up: Response: No adverse reaction; Blood pressure is lowered; IV Status: kc6 Infusion continued upon admission; IV Intake: 250ml 13:28 Follow up: Response: No adverse reaction; Blood pressure is unchanged; Rate change 9.5 kc6 mg/hr; IV Status: Infusion continued 13:45 Follow up: Response: No adverse reaction; Blood pressure is unchanged; Rate change 11.5 kc6 mg/hr; IV Status: Infusion continued 14:32 Follow up: Response: No adverse reaction; Blood pressure is unchanged; Rate change 13.5 kc6 mg/hr; IV Status: Infusion continued 14:33 Drug: Ondansetron IVP 4 mg IVP once; over 2 minutes Route: IVP; Site: right antecubital;kc6 15:16 Follow up: Response: No adverse reaction; Nausea is decreased kc6 20:04 Drug: Nicoderm CQ Transdermal Patch 14 mg/24 hr 1 patches Transdermal once Route: lg3 Transdermal; Site: affected area; Medication: 12:26 VIS not applicable for this client. kc6 Intake: 11:47 IV: 500ml; Total: 500ml. kc6 13:00 IV: 250ml; Total: 750ml. kc6 Outcome: 12:26 Decision to Hospitalize by Provider. kb 12:26 Admitted to ER Hold. Please see [facility] for further documentation. kc6 12:26 critical 12:26 Instructed on the need for admit, 21:22 Patient left the ED. kj2 Signatures: Dispatcher [employer] EDPatrizia Alvarado, ABDIRAHMAN JUNE-Richard Douglas em1 Bonnie Odell RN RN aa5 Lelia Gregorio RN RN lg3 Sonya Wilkinson RN RN kc6 Jennifer Jacome RN RN kj2 [place], Sonceria sj2 Corrections: (The following items were deleted from the chart) 14:26 14:25 Response: No adverse reaction; Blood pressure is unchanged; Rate change 11.5 kc6 mg/hr; IV Status: Infusion continued kc6
--- NOTE | 2024-08-13 12:27 | EDPHYS ---
Physician Documentation [facility] Name: Kuldeep Abdullahi Age: 54 yrs Sex: Male : 1970 Arrival Date: 08/13/2024 Time: 10:24 Bed 17 Private MD: ED Physician Olu Hubbard HPI: 08/13 12:17 This 54 yrs old Male presents to ER via Ambulatory with complaints of High Blood kb Pressure. 12:17 Pt is a 54 year old male who presents for high blood pressure. States he was admitted kb here in October and was discharged with 3 HTN medications, but didn't follow up for refills after his prescriptions ran out. States he had abd pain 2 weeks ago and his blood pressure was very high so he came in for evaluation. Was sent home on HCTZ 12.5mg daily. States he had some upper abd pain this morning that has resolved, but it caused him to check his blood pressure and it was still high so he came in. Denies chest pain, shortness of breath. Historical: - Allergies: 10:30 Lisinopril; aa5 - PMHx: 10:30 Hypertension; aa5 - PSHx: 10:30 Appendectomy; left knee; aa5 - Immunization history:: Adult Immunizations up to date. - Infectious Disease History:: Denies. - Social history:: Smoking status: Patient reports the use of cigarette tobacco products, denies chronic smoking, but will smoke occasionally. ROS: 11:43 Constitutional: As per HPI kb Exam: 11:43 Constitutional: This is a well developed, well nourished patient who is awake, alert, kb and in no acute distress. Head/Face: Normocephalic, atraumatic. ENT: Moist Mucous membranes Cardiovascular: Regular rate Respiratory: Respirations even and unlabored. No increased work of breathing. Talking in full sentences Abdomen/GI: Soft, non-tender. No distention Skin: Warm, dry with normal turgor. Normal color. MS/ Extremity: Pulses equal, no cyanosis. Neurovascular intact. Full, normal range of motion. Neuro: Awake and alert, GCS 15, oriented to person, place, time, and situation. 12:29 ECG was reviewed by the Attending Physician. kb Vital Signs: 10:29 BP 209 / 120; Pulse 85; Resp 16 S; Temp 97.5(TE); Pulse Ox 98% on R/A; Weight 79.38 kg aa5 (R); Height 5 ft. 8 in. (R); 11:02 BP 196 / 114; Pulse 84; Resp 18 S; Pulse Ox 99% on R/A; kc6 11:08 BP 189 / 108; kc6 11:31 BP 188 / 98; Pulse 86; Resp 20 S; Pulse Ox 99% on R/A; kc6 11:47 BP 199 / 100; kc6 11:53 BP 214 / 99; Pulse 91; Resp 20 S; Pulse Ox 100% on R/A; kc6 12:35 BP 207 / 101; Pulse 88; Resp 18 S; Pulse Ox 99% on R/A; kc6 12:51 BP 199 / 100; kc6 13:29 BP 181 / 100; Pulse 106; Resp 20 S; Pulse Ox 97% on R/A; kc6 14:31 BP 191 / 97; Pulse 111; Resp 18 S; Pulse Ox 94% on R/A; kc6 14:52 BP 174 / 90; Pulse 110; Resp 15 S; Pulse Ox 98% on R/A; kc6 20:33 BP 160 / 84; Pulse 69; Resp 18; Temp 98(O); Pulse Ox 95% on R/A; kj2 10:29 Body Mass Index 26.61 (79.38 kg, 172.72 cm) aa5 MDM: 10:28 Medical Screening Exam initiated kb 12:15 Differential diagnosis: hypertensive crisis, Malignant HTN, organ dysfunction. Data kb reviewed: vital signs, nurses notes. Consideration of Admission/Observation Patient was admitted/placed on observation. Escalation of care including admission/observation considered. Management of patient was discussed with the following: Hospitalist: Hospitalist team, awaiting acceptance of admission pending bed availability. Scout Executive: Dr Mason recommends admission for blood pressure control and trend troponin. Care significantly affected by the following chronic conditions: Hypertension. Counseling: I had a detailed discussion with the patient and/or guardian regarding the historical points, exam findings, and any diagnostic results supporting the discharge/admit diagnosis, lab results, radiology results, the need for further work-up and treatment in the hospital. 12:25 Management of patient was discussed with the following: Hospitalist: Pt accepted for kb admission under Dr Centeno. 08/13 10:45 Order name: CBC with Diff; Complete Time: 11:20 kb 08/13 10:45 Order name: CMP; Complete Time: 11:39 kb 08/13 10:45 Order name: Lipase; Complete Time: 11:39 kb 08/13 10:45 Order name: Troponin HS; Complete Time: 11:39 kb 08/13 12:33 Order name: T4 Free EDMS 08/13 12:33 Order name: Thyroid Stimulating Hormone EDMS 08/13 12:33 Order name: Urinalysis w/ reflexes EDMS 08/13 12:33 Order name: Basic Metabolic Panel EDMS 08/13 12:33 Order name: Basic Metabolic Panel EDMS 08/13 12:33 Order name: Basic Metabolic Panel EDMS 08/13 12:33 Order name: Basic Metabolic Panel EDMS 08/13 12:33 Order name: Basic Metabolic Panel EDMS 08/13 12:33 Order name: Basic Metabolic Panel EDMS 08/13 12:33 Order name: Basic Metabolic Panel EDMS 08/13 12:33 Order name: Basic Metabolic Panel EDMS 08/13 12:33 Order name: CBC with Automated Diff EDMS 08/13 12:33 Order name: CBC with Automated Diff EDMS 08/13 12:33 Order name: CBC with Automated Diff EDMS 08/13 12:33 Order name: CBC with Automated Diff EDMS 08/13 12:33 Order name: CBC with Automated Diff EDMS 08/13 12:33 Order name: CBC with Automated Diff EDMS 08/13 12:33 Order name: CBC with Automated Diff EDMS 08/13 12:33 Order name: CBC with Automated Diff EDMS 08/13 12:33 Order name: Lipid Profile EDMS 08/13 12:33 Order name: Lipid Profile EDMS 08/13 12:33 Order name: Magnesium EDMS 08/13 12:33 Order name: Magnesium EDMS 08/13 12:33 Order name: Magnesium EDMS 08/13 12:33 Order name: Magnesium EDMS 08/13 12:33 Order name: Magnesium EDMS 08/13 12:33 Order name: Magnesium EDMS 08/13 12:33 Order name: Magnesium EDMS 08/13 12:33 Order name: Magnesium EDMS 08/13 12:33 Order name: Phosphorus EDMS 08/13 12:33 Order name: Phosphorus EDMS 08/13 12:33 Order name: Phosphorus EDMS 08/13 12:33 Order name: Phosphorus EDMS 08/13 12:33 Order name: Phosphorus EDMS 08/13 12:33 Order name: Phosphorus EDMS 08/13 12:33 Order name: Phosphorus EDMS 08/13 12:33 Order name: Phosphorus EDMS 08/13 12:33 Order name: Troponin High Sensitivity EDMS 08/13 12:33 Order name: Troponin High Sensitivity EDMS 08/13 12:33 Order name: Troponin High Sensitivity EDMS 08/13 16:38 Order name: PTT, Activated Partial Thromb EDMS 08/13 19:36 Order name: CBC with Automated Diff EDMS 08/13 19:52 Order name: Magnesium EDMS 08/13 20:33 Order name: PTT, Activated Partial Thromb EDMS 08/13 10:45 Order name: XRAY Chest (1 view); Complete Time: 12:12 kb 08/13 10:45 Order name: IV Saline Lock; Complete Time: 11:02 kb 08/13 10:45 Order name: Labs collected and sent; Complete Time: 11:02 kb 08/13 10:45 Order name: Cardiac monitoring; Complete Time: 10:49 kb 08/13 10:45 Order name: EKG - Nurse/Tech; Complete Time: 10:59 kb 08/13 10:45 Order name: O2 Per Protocol; Complete Time: 10:49 kb 08/13 10:45 Order name: O2 Sat Monitoring; Complete Time: 10:49 kb EC:29 Rate is 87 beats/min. Rhythm is regular. QRS [place] is Normal. ID interval is normal at kb 160 msec. QRS interval is normal at 118 msec. QT interval is normal at 483 msec. Administered Medications: 11:02 Drug: Ondansetron IVP 4 mg IVP once; over 2 minutes Route: IVP; Site: right antecubital;kc6 21:20 Follow up: Response: Nausea is decreased kj2 11:02 Drug: hydrALAZINE IVP 10 mg IVP once Route: IVP; Site: right antecubital; kc6 11:23 Follow up: Response: No adverse reaction; Blood pressure is lowered kc6 11:30 Drug: NS 0.9% IV 500 ml IV at bolus once; to be given as a bolus over 30 minutes Route: kc6 IV; Rate: bolus; Site: right antecubital; 11:47 Follow up: Response: No adverse reaction; IV Status: Completed infusion; IV Intake: kc6 500ml 11:30 Drug: hydrALAZINE IVP 10 mg IVP once Route: IVP; Site: right antecubital; kc6 11:47 Follow up: Response: No adverse reaction; Blood pressure is unchanged kc6 12:35 Drug: niCARdipine IV 5 mg/hr IV at per protocol See Administration Instructions; kc6 (Standard concentration 25 mg / 250 mL NS); Recommended max rate 15 mg/hr; Titrate 2.5 mg/hr as often as every 15 minutes to achieve goal (see titration policy); Goal parameter SBP less than 160 mmHg Route: IV; Rate: per protocol; Site: right antecubital; 12:52 Follow up: Response: No adverse reaction; Blood pressure is unchanged; Rate change 7.5 kc6 mg/hr; IV Status: Infusion continued 13:00 Follow up: Response: No adverse reaction; Blood pressure is lowered; IV Status: kc6 Infusion continued upon admission; IV Intake: 250ml 13:28 Follow up: Response: No adverse reaction; Blood pressure is unchanged; Rate change 9.5 kc6 mg/hr; IV Status: Infusion continued 13:45 Follow up: Response: No adverse reaction; Blood pressure is unchanged; Rate change 11.5 kc6 mg/hr; IV Status: Infusion continued 14:32 Follow up: Response: No adverse reaction; Blood pressure is unchanged; Rate change 13.5 kc6 mg/hr; IV Status: Infusion continued 14:33 Drug: Ondansetron IVP 4 mg IVP once; over 2 minutes Route: IVP; Site: right antecubital;kc6 15:16 Follow up: Response: No adverse reaction; Nausea is decreased kc6 20:04 Drug: Nicoderm CQ Transdermal Patch 14 mg/24 hr 1 patches Transdermal once Route: lg3 Transdermal; Site: affected area; Disposition Summary: 08/13/24 12:26 Hospitalization Ordered Notes: Hospitalization Status: Observation kb Provider: Ace Centeno Condition: Stable kb Problem: new kb Symptoms: are unchanged kb Bed/Room Type: Standard kb Location: Telemetry/MedSurg (observation)(08/13/24 20:16) cg Room Assignment: [facility](08/13/24 20:16) cg Diagnosis - Essential (primary) hypertension kb - Elevated troponin kb Forms: - Medication Reconciliation Form kb - SBAR form kb - Leadership Thank You Letter kb Critical care time excluding procedures: 16:53 Critical care time: Bedside Care: 15 minutes, Consultation: 15 minutes. Total time: 30 kb minutes Signatures: Dispatcher [employer] EDMS Patrizia Muller, METAL AND PLASTIC HEATER-C METAL AND PLASTIC HEATER-Ckb Yecenia Torres Audri, RN RN aa5 Lorie Chiang, RN RN cg Lelia Gregorio RN RN lg3 Sonya Wilkinson, RN RN kc6 Debra Dorado 3 Jennifer Jacome RN kj2 Corrections: (The following items were deleted from the chart) 10:46 10:46 CBC+H.LAB.BRZ ordered. EDMS EDMS 10:46 10:46 COMPREHENSIVE METABOLIC PANEL+C.LAB.BRZ ordered. EDMS EDMS 10:46 10:46 LIPASE+C.LAB.BRZ ordered. EDMS EDMS 10:46 10:46 Troponin High Sensitivity+C.LAB.BRZ ordered. EDMS EDMS 10:46 10:46 Chest Single View+RAD.RAD.BRZ ordered. EDMS EDMS 15:59 15:59 PTT, ACTIVATED+COAG.LAB.BRZ ordered. EDMS EDMS 19:30 12:26 kb sp 19:43 19:30 3- sp af3 20:16 12:26 Intensive Care Unit kb cg 20:16 19:43 af3 cg
[2024-08-13] MEDS: Nicardipine/NS 25 MG/250 ML KIT IV SCH (12:35)
--- NOTE | 2024-08-13 12:35 | P.HP ---
Certification for Inpatient Patient admitted to: Inpatient With expected LOS: >2 Midnights Practitioner: I am a practitioner with admitting privileges, knowledge of patient current condition, hospital course, and medical plan of care. Services: Services provided to patient in accordance with Admission requirements found in Title 42 Section 412.3 of the Code of Federal Regulations Patient History Date of Service: 08/13/24 Reason for admission: NSTEMI, HTN emergency History of Present Illness: Kuldeep Abdullahi is a 54 year old male with Pmhx Hypertension who presents with high blood pressure. He reports being admitted recently with abdominal pain and being discharged with HCTZ. He reports not being able to afford his medications and ran out of his medications. Laboratory evaluation significant for Troponin 173.2, BP 209/120 with little change after Hydrazine 20 mg IV. Chest xray reports "The lungs are well inflated and clear. No pneumothorax or sizable effusion. The heart is normal in size. Mediastinal contours are unremarkable. IMPRESSION: No acute intrathoracic abnormalities." Kuldeep will be admitted to hospitalist service for treatment of Hypertensive Emergency and NSTEMI, Dr. Mason consulted. Allergies No Known Allergies Allergy (Unverified 10/05/17 19:35) Home Medications: Aspirin [Aspirin EC] 81 mg PO DAILY 90 Days #90 tab 11/01/23 Atorvastatin Calcium [Lipitor] 40 mg PO BEDTIME 90 Days #90 tab 11/01/23 Hydralazine [Apresoline*] 25 mg PO TID 60 Days #120 tab 11/01/23 Metoprolol Tartrate [Lopressor*] 50 mg PO TID 60 Days #120 tab 11/01/23 Sacubitril/Valsartan [Entresto 24 mg-26 mg Tablet] 1 tab PO BID 60 Days #120 tab 11/01/23 hydroCHLOROthiazide [Hydrochlorothiazide] 12.5 mg PO DAILY 08/13/24 - Past Medical/Surgical History Diabetic: No -: Nephrolithiasis -: Hypertension -: Appendectomy -: left knee surgery - Family History Father -: Heart disease, Hypertension, GI disease Mother -: Heart disease, Diabetes, Cancer - Social History Alcohol use: No CD- Drugs: No Caffeine use: Yes Review of Systems High BP Physical Examination - Physical Exam General: Alert, In no apparent distress, Oriented x3 HEENT: Atraumatic, Normocephalic, PERRLA Neck: Supple, 2+ carotid pulse no bruit Respiratory: Clear to auscultation bilaterally, Normal air movement Cardiovascular: No edema, Normal pulses, Irregular heart rate/rhythm (mild tachycardia) Capillary refill: <2 Seconds Gastrointestinal: Normal bowel sounds, Soft and benign Musculoskeletal: No clubbing Integumentary: No rashes Neurological: Normal speech, Normal tone - Studies Laboratory Data (last 24 hrs) 08/13/24 08/13/24 11:00 11:00 WBC 9.70 Hgb 18.2 H Hct 54.9 H Plt Count 207 Sodium 136 Potassium 3.7 BUN 18 Creatinine 1.25 Glucose 86 Total Bilirubin 0.6 AST 49 H ALT 49 Alkaline Phosphatase 70 Lipase 30 Assessment and Plan - Plan Asessment and Plan Hypertensive Emergency NSTEMI HFrEF Cardiomyopathy -Consult cardiology -Admit to ICU with continuous telemetry -cardene gtt with PO metoprolol -verify home antihypertensives -Troponin 173.4, serial pending -Changes to EKG, heparin gtt started -NPO at midnight DVT ppx heparin gtt Full code LOS 2 days Discharge Plan: Home Plan to discharge in: 48 Hours - Advance Directives Does patient have a Living Will: No Does patient have a Durable POA for Healthcare: No
[2024-08-13] MEDS: ONDANSETRON 4 MG/2 ML VIAL IV ONE (14:33)
[2024-08-13] MEDS ORDERED: Nicardipine/NS 25 MG/250 ML KIT IV SCH ×2 (15:12→15:22)
[2024-08-13 15:15] VITALS: BMI 26.3
[2024-08-13] MEDS: ASPIRIN EC 81 MG TAB PO ONE (15:20)
[2024-08-13] MEDS ORDERED: ASPIRIN 81 MG CHEWABLE TABLET ONE (15:22)
[2024-08-13] MEDS ORDERED: HEPARIN/D5W 25,000 UNIT/500 ML BAG IV PRN (15:44)
[2024-08-13] MEDS: HEPARIN/D5W 25,000 UNIT/500 ML BAG IV SCH (16:09)
[2024-08-13] MEDS: METOPROLOL XL 50 MG TAB PO ONE (16:23)
[2024-08-13] MEDS ORDERED: METOPROLOL TAR 50 MG TAB ONE (17:42)
[2024-08-13] MEDS ORDERED: HEPARIN 5000 UNIT/ML 1 ML VIAL ONE (17:42)
[2024-08-13 18:18] LABS: PT Prothrombin Time 11.3 SECONDS (9.4-12.5); Protime INR 1.01
[2024-08-13 19:34] LABS: Absolute Basophils 0.1 K/uL (0-0.5); Absolute Eosinophils 0.5 K/uL (0-0.5); Absolute Lymphocytes (CBC) 2.3 K/uL (0.7-4.9); Absolute Monocytes 1.3 K/uL (0.1-1.3); Absolute Neutrophil 7.3 K/uL (1.8-8.0); Hematocrit 50.8 % (39.6-49.0); Hemoglobin 17.1 g/dL (13.6-17.9); MCH 30.4 pg (27.0-35.0); MCHC 33.7 g/dL (32.0-36.0); MCV 90.2 fL (80-100); MPV 8.9 fL (7.6-11.3); Monocytes % 11.6 % (3.3-12.3); Neutrophils % 63.4 % (41.7-73.7); Platelets 198 thou/uL (152-406); RBC Red Blood Cell Count 5.63 M/uL (4.33-5.43); Red Cell Distribution Width 13.8 % (12.1-15.2)
[2024-08-13] MEDS ORDERED: NICOTINE 21 MG/PAT TD ONE (19:45)
[2024-08-13] MEDS: ATORVASTATIN 40 MG TAB PO SCH (21:54)
[2024-08-13] MEDS: METOPROLOL TAR 50 MG TAB PO SCH (21:54)
[2024-08-13] MEDS: SACUBITRIL/VALSARTAN 24/26 MG TAB PO SCH (21:54)
[2024-08-13] MEDS: LORAZEPAM 0.5 MG TABLET PO ONE (21:56)
[2024-08-14 04:52] LABS: Absolute Basophils 0.1 K/uL (0-0.5); Absolute Eosinophils 0.4 K/uL (0-0.5); Absolute Lymphocytes (CBC) 1.5 K/uL (0.7-4.9); Absolute Monocytes 1.1 K/uL (0.1-1.3); Absolute Neutrophil 6.1 K/uL (1.8-8.0); Basophils % 0.7 % (0-1.3); Eosinophils % 4.6 % (0-4.4); Hematocrit 53.2 % (39.6-49.0); Lymphocytes % 16.1 % (15.3-44.8); MCH 30.6 pg (27.0-35.0); MCHC 33.8 g/dL (32.0-36.0); MCV 90.7 fL (80-100); MPV 9.8 fL (7.6-11.3); Monocytes % 11.9 % (3.3-12.3); Neutrophils % 66.7 % (41.7-73.7); Nucleated Red Blood Cells % 0.1 % (0-0); Platelets 215 thou/uL (152-406); RBC Red Blood Cell Count 5.87 M/uL (4.33-5.43); Red Cell Distribution Width 14.1 % (12.1-15.2)
[2024-08-14 05:15] LABS: Anion Gap 6.5 mEq/L (5.0-15.0); Magnesium 1.9 mg/dL (1.6-2.4); Potassium 3.5 mEq/L (3.5-5.1); Thyroid Stimulating Hormone 1.44 uIU/mL (0.358-3.740)
[2024-08-14 06:42] LABS: Specific Gravity 1.021 (1.005-1.030); Sqamous Epithelial None Seen /HPF (None Seen); Urine Bacteria None Seen /HPF (<20); Urine Bilirubin NEGATIVE (Negative); Urine Blood Negative (Negative); Urine Clarity Clear (Clear); Urine Color Yellow (Yellow); Urine Culture Reflex Order NOT NEEDED; Urine Glucose 2+ (Negative); Urine Ketones NEGATIVE (Negative); Urine Microscopic Reflex YN ORDER UMIC; Urine Nitrite NEGATIVE (Negative); Urine Protein TRACE (Negative); Urine RBC <5 /HPF (None Seen); Urine Urobilinogen 1+ (Normal); Urine WBC <5 /HPF (<5)
[2024-08-14] MEDS: FLU (Fluarix Triv) TS24-25(6MOS UP)/PF 45 MCG/0.5 ML Syringe IM ONE (07:30)
[2024-08-14] MEDS: POTASS/SODIUM PHOSPHATE 1 PKT POWD.PACK PO SCH (08:00)
[2024-08-14] MEDS: PNEUMOCOCCAL VACCINE 0.5 ML IMVAC ONE (08:00)
[2024-08-14] MEDS: ASPIRIN EC 81 MG TAB PO SCH (09:00)
[2024-08-14] MEDS ORDERED: HEPARIN 10,000 UNIT/10 ML VIAL IV ONE (09:40)
[2024-08-14] MEDS ORDERED: HEPA 1000U/500MLS 2,000 UNIT/1,000 ML BAG IV ONE (09:40)
[2024-08-14] MEDS ORDERED: HEPARIN 5000 UNIT/ML 1 ML VIAL ONE (09:41)
[2024-08-14] MEDS ORDERED: MIDAZOLAM HCL 2 MG/2 ML INJ ONE (09:41)
[2024-08-14] MEDS ORDERED: TICAGRELOR 90 MG TABLET PO ONE (09:41)
[2024-08-14] MEDS ORDERED: ATROPINE SULF 1 MG/10 ML SYR IV ONE (09:41)
[2024-08-14] MEDS ORDERED: CLOPIDOGREL 75 MG TABLET ONE (09:41)
[2024-08-14] MEDS ORDERED: LIDOCAINE 1% 20 ML MDV ONE (09:42)
[2024-08-14] MEDS ORDERED: ASPIRIN 325 MG TAB ONE (09:42)
[2024-08-14] MEDS ORDERED: FENTANYL CITR 100 MCG/2 ML ONE (09:42)
[2024-08-14] MEDS: NA CHLORIDE 0.9% 500 ML ONE (10:00)
--- NOTE | 2024-08-14 10:02 | P.CNS ---
Date of Consult: 08/14/24 Chief Complaint: NSTEMI, HTN emergency History of Present Illness: Patient with PMH of HTN, presented with epigastric pain that has been going on for few months, associated with high BP ,denies palpitations, no syncope, no SOB. Allergies No Known Allergies Allergy (Unverified 08/13/24 21:49) Home medications list reviewed: Yes Home Medications: Aspirin [Aspirin EC] 81 mg PO DAILY 90 Days #90 tab 11/01/23 Atorvastatin Calcium [Lipitor] 40 mg PO BEDTIME 90 Days #90 tab 11/01/23 Hydralazine [Apresoline*] 25 mg PO TID 60 Days #120 tab 11/01/23 Metoprolol Tartrate [Lopressor*] 50 mg PO TID 60 Days #120 tab 11/01/23 Sacubitril/Valsartan [Entresto 24 mg-26 mg Tablet] 1 tab PO BID 60 Days #120 tab 11/01/23 hydroCHLOROthiazide [Hydrochlorothiazide] 12.5 mg PO DAILY 08/13/24 - Past Medical/Surgical History Diabetic: No -: Nephrolithiasis -: Hypertension -: Appendectomy -: left knee surgery - Family History Father Medical History: Heart disease, Hypertension, GI disease Mother Medical History: Heart disease, Diabetes, Cancer - Social History Smoking Status: Current some day smoker Alcohol use: No CD- Drugs: No Caffeine use: Yes Place of Residence: Home Review of Systems 10-point ROS is otherwise unremarkable Physical Examination Temp Pulse Resp BP Pulse Ox 97.8 F 65 20 140/84 98 08/14/24 08:00 08/14/24 08:00 08/14/24 08:00 08/14/24 08:00 08/14/24 08:00 General: Alert, In no apparent distress HEENT: Atraumatic, PERRLA, Mucous membr. moist/pink, EOMI, Sclerae nonicteric Neck: Supple, 2+ carotid pulse no bruit, No LAD, Without JVD or thyroid abnormality Respiratory: Clear to auscultation bilaterally, Normal air movement Cardiovascular: Regular rate/rhythm, Normal S1 S2 Gastrointestinal: Normal bowel sounds, No tenderness Musculoskeletal: No tenderness Integumentary: No rashes Neurological: Normal gait, Normal speech, Normal tone, Normal affect Lymphatics: No axilla or inguinal lymphadenopathy Laboratory Data (last 24 hrs) 08/13/24 08/13/24 11:00 11:00 WBC 9.70 Hgb 18.2 H Hct 54.9 H Plt Count 207 Sodium 136 Potassium 3.7 BUN 18 Creatinine 1.25 Glucose 86 Total Bilirubin 0.6 AST 49 H ALT 49 Alkaline Phosphatase 70 Lipase 30 - Problems (1) HFrEF (heart failure with reduced ejection fraction) Current Visit: No Status: Acute Plan: lower metoprolol to 50 mg po BID Start Losartan 25 mg daily add Aldactone 25 mg daily Get updated echo (2) Hypertensive emergency Current Visit: No Status: Acute Plan: adjust medications as above. (3) Non-STEMI (non-ST elevated myocardial infarction) Current Visit: No Status: Acute Plan: NPO for coronary angiogram ASA 81 mg daily Lipitor 40 mg daily Heparin drip ACS protocol get echo
--- NOTE | 2024-08-14 12:04 | EKG ---
Test Date: 2024-08-13 Test Time: 15:20:39 Registered Nurse Ambulatory: [facility] MEASUREMENT RESULTS: Intervals: Rate: 107 MA: 160 QRSD: 116 QT: 390 QTc: 520 [place]: P: 78 MA: 160 QRS: -52 T: 105 INTERPRETIVE STATEMENTS: Sinus tachycardia with premature supraventricular complexes with occasional premature ventricular complexes Biatrial enlargement Left anterior fascicular block Left ventricular hypertrophy with QRS widening and repolarization abnormality Abnormal ECG Compared to ECG 08/13/2024 10:56:33 Atrial premature complex(es) now present Ventricular premature complex(es) now present Sinus rhythm no longer present Myocardial infarct finding no longer present Electronically Signed On 08-14-24 12:03:05 BASKET HAND WEAVER by Conrad Mason
--- NOTE | 2024-08-14 12:06 | EKG ---
Test Date: 2024-08-13 Test Time: 10:56:33 Associate Professor Of [employer] Media: [facility] MEASUREMENT RESULTS: Intervals: Rate: 87 MI: 160 QRSD: 118 QT: 402 QTc: 483 [place]: P: 74 MI: 160 QRS: -48 T: 155 INTERPRETIVE STATEMENTS: Normal sinus rhythm Biatrial enlargement Left anterior fascicular block Left ventricular hypertrophy with QRS widening and repolarization abnormality Septal infarct, age undetermined Abnormal ECG Compared to ECG 08/01/2024 00:08:04 No significant changes Electronically Signed On 08-14-24 12:05:12 SATELLITE MANAGER by Conrad Mason
[2024-08-14 13:54] VITALS: O2SAT 96
[2024-08-14 18:11] VITALS: TEMP 97.9
--- NOTE | 2024-08-14 19:11 | P.DS ---
Admission Date: 08/13/24 Discharge Date: 08/14/24 Disposition: ROUTINE DISCHARGE Discharge Condition: GOOD Reason for Admission: NSTEMI, HTN emergency Brief History of Present Illness: Diagnosis HPI 08/13/24 Kuldeep Abdullahi is a 54 year old male with Pmhx Hypertension who presents with high blood pressure. He reports being admitted recently with abdominal pain and being discharged with HCTZ. He reports not being able to afford his medications and ran out of his medications. Laboratory evaluation significant for Troponin 173.2, BP 209/120 with little change after Hydrazine 20 mg IV. Chest xray reports "The lungs are well inflated and clear. No pneumothorax or sizable effusion. The heart is normal in size. Mediastinal contours are unremarkable. IMPRESSION: No acute intrathoracic abnormalities." Kuldeep will be admitted to hospitalist service for treatment of Hypertensive Emergency and NSTEMI, Dr. Mason consulted. Hospital Course: [text] is a pleasant [text] with a past medical history significant for [text] who was admitted to the [facility] on [text] for [text]. [text] On [date], [text] was seen on morning rounds and deemed medically stable for discharge. [text] was discharged with instructions to schedule follow-up appointments with [text]. [text] was provided prescriptions for [text]. Physical Exam Vital Signs/Physical Exam: Temp Pulse Resp BP Pulse Ox 97.9 F 62 18 152/88 H 94 08/14/24 16:00 08/14/24 16:00 08/14/24 16:00 08/14/24 16:00 08/14/24 16:00 Laboratory Data at Discharge: WBC 9.10 thou/uL (4.3-10.9) 08/14/24 03:59 Hgb 18.0 g/dL (13.6-17.9) H 08/14/24 03:59 Hct 53.2 % (39.6-49.0) H 08/14/24 03:59 Plt Count 215 thou/uL (152-406) 08/14/24 03:59 PT 11.3 SECONDS (9.4-12.5) 08/13/24 16:16 INR 1.01 08/13/24 16:16 APTT 50.8 SECONDS (24.3-36.9) H 08/14/24 09:15 Sodium 136 mEq/L (136-145) 08/14/24 03:59 Potassium 3.5 mEq/L (3.5-5.1) 08/14/24 03:59 BUN 18 mg/dL (7-18) 08/14/24 03:59 Creatinine 0.85 mg/dL (0.70-1.30) 08/14/24 03:59 Glucose 121 mg/dL (74-106) H 08/14/24 03:59 Phosphorus 2.0 mg/dL (2.5-4.9) L 08/14/24 03:59 Magnesium 1.9 mg/dL (1.6-2.4) 08/14/24 03:59 Total Bilirubin 0.6 mg/dL (0.2-1.0) 08/13/24 11:00 AST 49 U/L (15-37) H 08/13/24 11:00 ALT 49 U/L (16-61) 08/13/24 11:00 Alkaline Phosphatase 70 U/L (45-117) 08/13/24 11:00 Triglycerides 94 mg/dL (<150) 08/14/24 03:59 Cholesterol 148 mg/dL (<200) 08/14/24 03:59 HDL Cholesterol 44 mg/dL (40-60) 08/14/24 03:59 Cholesterol/HDL Ratio 3.36 08/14/24 03:59 Lipase 30 U/L (13-75) 08/13/24 11:00 Home Medications: Aspirin [Aspirin EC] 81 mg PO DAILY 90 Days #90 tab 11/01/23 Atorvastatin Calcium [Lipitor] 40 mg PO BEDTIME 90 Days #90 tab 08/14/24 Losartan Potassium [Cozaar*] 25 mg PO DAILY 30 Days #15 tab 08/14/24 Metoprolol Tartrate [Lopressor*] 50 mg PO BID 30 Days #60 tab 08/14/24 Spironolactone [Aldactone*] 25 mg PO DAILY 30 Days #30 tab 08/14/24 New Medications: Spironolactone [Aldactone*] 25 mg PO DAILY 30 Days #30 tab Losartan Potassium [Cozaar*] 25 mg PO DAILY 30 Days #15 tab Atorvastatin Calcium [Lipitor] 40 mg PO BEDTIME 90 Days #90 tab Metoprolol Tartrate [Lopressor*] 50 mg PO BID 30 Days #60 tab Physician Discharge Instructions: 1. Please call and schedule a follow-up appointment with your PCP in 3-5 days - Please follow-up with your PCP for medication refills/adjustments 2. Please call and schedule a follow-up appointment with Dr. Mason in 3-5 days -Check blood pressure twice daily to determine effectiveness of blood pressure medications 3. Continue heart healthy diet 4. No activity restrictions 5. Return to the ED if symptoms worsen New medications Aldactone 25 mg daily Losartan 25 mg daily, if provided in 50 mg tablets please cut tablet in half Lipitor 40 mg daily Metoprolol 50 mg twice daily Disability contact is Yvette Duque [phone] A message has been left for her to expect your return tomorrow, your daughter's phone number was also left on the voicemail. Diet: AHA Activity: Ad laurent Followup: Conrad Mason MD [ACTIVE - CAN ADMIT] - NONE,NONE [Primary Care Provider] -
[2024-08-14] MEDS: SPIRONOLACTONE 25 MG TABLET PO SCH (19:46)
[2024-08-14 19:47] VITALS: BP 154/91
[2024-08-14] MEDS: METOPROLOL TAR 50 MG TAB PO SCH (19:47)
--- NOTE | 2024-08-14 22:38 | OP ---
Date of Procedure: 08/14/2024 Surgeon: Conrad Mason Procedures Performed: 1.Left heart catheterization. 2.Selective coronary angiogram. Indication For Procedure: [id number] CA, hypertensive emergency. Complications: None. Estimated Blood Loss: Less than 50 cc. Access: Right radial, closed by TR band. Sedation Time: 20 minutes with 2 of Versed and 50 of fentanyl. Description Of Procedure: After risks, benefits, and alternatives were explained to the patient, the patient agreed to proceed with procedure and signed informed consent. The patient was brought back to the cathead worker, prepped and draped in a sterile fashion. Time-out was performed. Sedation was admi nistered. Next, right radial access was obtained using ultrasound-guided micropuncture technique. [employer] 4 catheter was advanced over the J-wire to the LV cavity. LVEDP was obtained. Pullback did not show any gradient. Same catheter was used for selective angiogram of the left and right coronar y systems. At the end of procedure, catheter was removed over a J-wire. Sheath was removed. TR ban d was applied. Hemostasis achieved. The patient was moved back to recovery in stable condition. Findings: 1.Left main: Normal. 2.LAD: Normal. 3.Left circumflex: Normal. 4.RCA: Normal. 5.LVEDP: 3 mmHg. Assessment And Plan: 1.Normal coronaries. 2.Normal filling pressures. The plan will be to continue medical management and aggressive blood pressure control. INGRID/RHONDA Voice ID: [id number] Report ID: [id number]
--- NOTE | 2024-08-15 08:55 | ECHO ---
HEIGHT: 5 ft 8 in WEIGHT: 173 lb 0 oz DATE OF STUDY: 08/14/[address]: Sherlyn Alexander NP 2-DIMENSIONAL: YES M.MODE: YES DOPPLER: YES COLOR FLOW: YES TDS: PORTABLE: YES DEFINITY: BUBBLE STUDY: DIAGNOSIS: CHEST PAIN CARDIAC HISTORY: CATHERIZATION: YES SURGERY: NO PROSTHETIC VALVE: NO PACEMAKER: NO MEASUREMENTS (cm) DIASTOLIC (NORMALS) SYSTOLIC (NORMALS) IVSd 1.7 (0.6-1.2) LA Diam 3.7 (1.9-4.0) LVEF 60-65% LVIDd 4.7 (3.5-5.7) LVIDs 3.0 (2.0-3.5) %FS 37% LVPWd 1.7 (0.6-1.2) Ao Diam 3.1 (2.0-3.7) 2 DIMENSIONAL ASSESSMENT: RIGHT ATRIUM: NORMAL LEFT ATRIUM: NORMAL RIGHT VENTRICLE: NORMAL LEFT VENTRICLE: SEVERE LEFT VENTRICULAR HYPERTROPHY TRICUSPID VALVE: MILD TRICUSPID REGURGITATION MITRAL VALVE: TRACE MITRAL REGURGITATION PULMONIC VALVE: NORMAL AORTIC VALVE: CALCIFIED, MODERATE AORTIC STENOSIS PERICARDIAL EFFUSION: NONE AORTIC ROOT: NORMAL LEFT VENTRICULAR WALL MOTION: NORMAL DOPPLER/COLOR FLOW: GRADE I DIASTOLIC DYSFUNCTION COMMENTS: 1. SEVERE CONCENTRIC LEFT VENTRICULAR HYPERTROPHY 2. NORMAL LEFT VENTRICULAR SYSTOLIC FUNCTION, EJECTION FRACTION 60-65%, NORMAL WALL MOTION 3. GRADE I DIASTOLIC DYSFUNCTION 4. SEVERE CALCIFIED AORTIC VALVE (CANNOT EXCLUDE BICUSPID) WITH MODERATE AORTIC STENSOSIS TECHNOLOGIST: ASIYA HENAO
[2024-08-15] MEDS ORDERED: LOSARTAN POTASSIUM 50 MG TABLET PO SCH (09:00)
== END 2024-08-14 20:05 | disposition home or self-care (01) | DRG 280 ==
LOC: ER 10:24 → ERHOLD 12:24 → 2ND 20:52
PROVIDERS: ADMIT Hospitalist; ATTEND Hospitalist
PROC: 4A023N7 Measurement of Cardiac Sampling and Pressure, Left Heart, Percutaneous Approach (ICD-10-PCS; principal; 2024-08-14)
PROC: B2111ZZ Fluoroscopy of Multiple Coronary Arteries using Low Osmolar Contrast (ICD-10-PCS; 2024-08-14)
DX: I16.1 Hypertensive emergency (principal); I50.21 Acute systolic (congestive) heart failure; I21.4 Non-ST elevation (NSTEMI) myocardial infarction; I42.9 Cardiomyopathy, unspecified; I11.0 Hypertensive heart disease with heart failure; F17.210 Nicotine dependence, cigarettes, uncomplicated; Z79.82 Long term (current) use of aspirin; Z79.899 Other long term (current) drug therapy; Z90.49 Acquired absence of other specified parts of digestive tract; Z91.148 Patient's other noncompliance with medication regimen for other reason; Z88.8 Allergy status to other drugs, medicaments and biological substances
CPT/HCPCS: 36415; 71045; 76937; 80048; 80053; 80061; 81001; 83690; 83735; 84100; 84439; 84443; 84484; 85025; 85610; 85730; 93005; 93306; 93458; 96365; 96375; 99152; 99153; 99285; C1893; J0360; J0461; J1644; J2003; J2250; J2405; J3010; J7040; Q9966

== ENCOUNTER 2025-04-26 18:47 | Inpatient (IN) | payer OTHER ==
[2025-04-26] MEDS ORDERED: HYDRALAZINE HCL 20 MG/ML VIAL ONE (19:15)
[2025-04-26 19:27] LABS: Absolute Lymphocytes (CBC) 2.4 K/uL (0.7-4.9); Hematocrit 52.0 % (39.6-49.0); Hemoglobin 17.8 g/dL (13.6-17.9); MCH 31.4 pg (27.0-35.0); MCHC 34.3 g/dL (32.0-36.0); MCV 91.4 fL (80-100); MPV 9.2 fL (7.6-11.3); Nucleated RBC Absolute Count 0.0 (0-0); Nucleated Red Blood Cells % 0.0 % (0-0); RBC Red Blood Cell Count 5.69 M/uL (4.33-5.43); White Blood Count 8.20 thou/uL (4.3-10.9)
--- NOTE | 2025-04-26 19:44 | RAD REPORT ---
EXAMINATION: Ct Stroke Brain Wo Cont CLINICAL INDICATION: Male, 54 years old.STROKE ALERT TECHNIQUE: Axial CT images from the skull base to the vertex without intravenous contrast. Coronal an d sagittal reformatted images were created from the data set. One or more of the following dose reduction techniques were used: Automated exposure control, adjustment of the mA and/or kV according to patient size, and/or iterative reconstruction. Unless otherwise specified, incidental findings do not require dedicated imaging follow-up. [id number]. COMPARISON: No prior exams FINDINGS: INTRACRANIAL: No acute intracranial hemorrhage. No acute large vascular territory infarct. No hydroce phalus. No mass effect or midline shift. Mild chronic small vessel ischemic changes.Small remote left caudate head lacunar infarct. VASCULATURE: No visualized abnormalities in the arteries or dural venous sinuses. SCALP/SKULL: No calvarial fracture identified. No acute soft tissue abnormality. SINUSES: The visualized paranasal sinuses are mostly clear. No significant mastoid fluid. IMPRESSION: No acute intracranial abnormality. The findings were communicated to Charlotte Pradhan on 04/26/2025 7:42 PM.
[2025-04-26 19:46] LABS: ALT/SGPT 66 U/L (16-61); AST/SGOT 51 U/L (15-37); Albumin 3.8 g/dL (3.4-5.0); Albumin/Globulin Ratio 1.0 (1.1-1.8); Alkaline Phosphatase 74 U/L (45-117); Anion Gap 8.7 mEq/L (5.0-15.0); BUN Blood Urea Nitrogen 19 mg/dL (7-18); Globulin 3.8 g/dL (2.3-3.5); Glucose Level 114 mg/dL (74-106); Magnesium 2.0 mg/dL (1.6-2.4); Potassium 3.7 mEq/L (3.5-5.1)
[2025-04-26 19:47] LABS: Bilirubin Indirect, Calculated 0.3 mg/dL (0.2-0.8)
[2025-04-26 19:48] LABS: Troponin High Sensitivity 73.0 pg/mL (<58.9)
--- NOTE | 2025-04-26 19:48 | RAD REPORT ---
EXAMINATION: Head angio CLINICAL INDICATION: Male, 54 years old. STROKE ALERT TECHNIQUE: Axial CT images were obtained through the head after intravenous contrast utilizing angiog raphic protocol with 3D post-processing (maximum intensity projection images, volume rendered images and/or shaded surface rendered images). One or more of the following dose reduction technique s were used: Automated exposure control, adjustment of the mA and/or kV according to patient size, and/or iterative reconstruction. Unless otherwise specified, incidental findings do not require dedic ated imaging follow-up. COMPARISON: No prior exam. FINDINGS: RIGHT: ICA: Patent JAKOB: Patent MCA: Patent REFINERY OPERATOR VAPOR RECOVERY UNIT: Patent LEFT: ICA: Patent JAKOB: Patent MCA: Patent REFINERY OPERATOR VAPOR RECOVERY UNIT: Patent Vertebrobasilar: The vertebral arteries are patent. The basilar artery is normal in appearance. 3D images confirm these findings. IMPRESSION: No occlusion, aneurysm, or hemodynamically significant stenosis identified.
--- NOTE | 2025-04-26 19:48 | RAD REPORT ---
EXAMINATION: Neck Angio CLINICAL INDICATION: Male, 54 years old. ams, htn TECHNIQUE: Axial CT images were obtained from the aortic arch to the skull base after intravenous con trast utilizing angiographic protocol with 3D post-processing (maximum intensity projection images, volume rendered images and/or shaded surface rendered images). One or more of the following dose redu ction techniques were used: Automated exposure control, adjustment of the mA and/or kV according to patient size, and/or iterative reconstruction. Unless otherwise specified, incidental findings do not require dedicated imaging follow-up. [id number]. NASCET criteria used. Mild 0-49% stenosis Moderate 50-69% stenosis Severe 70-99% stenosis COMPARISON: No prior exam. FINDINGS: AORTA: Normal RIGHT: - CCA: Patent - ICA: Patent - ECA: Patent LEFT: - CCA: Patent - ICA: Patent - ECA: Patent VERTEBRAL: Patent SOFT TISSUE: Partially calcified mass in the right neck measuring 2.8 x 2 cm.5 The visualized lung ap ices are clear. 3D images confirm these findings. IMPRESSION: No arterial dissection or stenosis identified within the neck. Partially calcified right neck mass of uncertain etiology. Recommend nonemergent pelvic ultrasound fo r further evaluation.
[2025-04-26 20:01] LABS: PT Prothrombin Time 11.8 SECONDS (10-13.0); PTT, Activated Partial Thromb 36.6 SECONDS (27.2-37.4); Protime INR 1.05
--- NOTE | 2025-04-26 20:07 | RAD REPORT ---
EXAM: Chest Single View HISTORY: 54 years Male CHEST PAIN COMPARISON: 03/12/2025 FINDINGS: LUNGS/PLEURA: The lungs are clear. No pleural effusions or pneumothorax. No pulmonary edema. CARDIAC/MEDIASTINUM: Moderate cardiomegaly. UPPER ABDOMEN: No significant abnormality. BONES: No acute abnormality. LINES/TUBES/OTHER: N/A IMPRESSION: No evidence of acute cardiopulmonary disease.
--- NOTE | 2025-04-26 21:54 | ER ---
Nurse's Notes [facility] Name: Kuldeep Abdullahi Age: 54 yrs Sex: Male : 1970 Arrival Date: 04/26/2025 Time: 18:47 Bed 3 Private MD: Diagnosis: Hypertensive urgency;Elevated troponin Presentation: 04/26 19:00 Chief complaint: Patient states: WENT TO MD FOR GENERAL CHECK-UP. REPORTS BP 200/125, dd2 DULL HEADACHE AND SOME CONFUSION EARLIER IN THE DAY. STATES TOOK AN EKG AND TOLD PT TO COME TO THE ER. Coronavirus screen: At this time, the client does not indicate any symptoms associated with coronavirus-19. Ebola Screen: No symptoms or risks identified at this time. Initial Sepsis Screen: Does the patient meet any 2 criteria? No. Patient's initial sepsis screen is negative. Does the patient have a suspected source of infection? No. Patient's initial sepsis screen is negative. Risk Assessment: Do you want to hurt yourself or someone else? Patient reports no desire to harm self or others. Onset of symptoms was April 26, 2025. 19:00 Method Of Arrival: Ambulatory dd2 19:00 Acuity: JUS 3 dd2 19:14 No acute neurological deficit is noted. Pre-hospital glucose is not applicable to this bm8 patient. Triage Assessment: 19:05 Headache History: The patient has had previous headaches and this one is similar to dd2 previous episodes. General: Appears in no apparent distress. uncomfortable, Behavior is calm, cooperative, appropriate for age. Pain: Complains of pain in HEAD Pain currently is 6 out of 10 on a pain scale. Pain began gradually, Also complains of no other associated symptoms. Neuro: Reports headache in entire. Cardiovascular: Reports HIGH BLOOD PRESSURE Denies chest pain. 19:14 The onset of the patients symptoms was April 26, 2025 at 08:00. bm8 Stroke Activation: Physician: ED Attending; Name: rajeev; Notified At: 19:14; Arrived At: Physician: Mid-Level Provider; Name: ammy; Notified At: 19:14; Arrived At: 19:14 Physician: [not used]; Name: ; Notified At: ; Arrived At: Physician: [not used]; Name: ; Notified At: ; Arrived At: Physician: [not used]; Name: ; Notified At: ; Arrived At: Historical: - Allergies: 19:03 No Known Allergies; dd2 - Home Meds: 19:44 losartan oral [Active]; bm8 - PMHx: 19:03 Hypertension; HEP C (left knee); dd2 19:05 ENLARGED HEART; dd2 - PSHx: 19:03 Appendectomy; left knee; dd2 - Immunization history:: Adult Immunizations unknown. - Infectious Disease History:: Denies. Hepatitis C. - Social history:: Smoking status: Patient reports the use of cigarette tobacco products, smokes one pack cigarettes per day. Screenin:[address] [facility] ED Fall Risk Assessment (Adult) History of falling in the last 3 months, bm8 including since admission No falls in past 3 months (0 pts) Confusion or Disorientation No (0 pts) Intoxicated or Sedated No (0 pts) Impaired Gait No (0 pts) Mobility Assist Device Used No (0 pt) Altered Elimination No (0 pt) Score/Fall Risk Level 0 - 2 = Low Risk Oriented to surroundings, Maintained a safe environment, Educated pt \T\ family on fall prevention, incl call for assistance when getting out of bed, Assessed \T\ reinforced patient's understanding of fall precautions, Hourly rounding (assess needs \T\ fall precautionary measures) done, Used ambulatory aids as needed (educated on \T\ assisted with), Used gait belt as appropriate. Abuse screen: Denies threats or abuse. Nutritional screening: No deficits noted. Tuberculosis screening: No symptoms or risk factors identified. Assessment: 19:20 Reassessment: Patient appears in no apparent distress at this time. Patient and/or bm8 family updated on plan of care and expected duration. Pain level reassessed. Patient is alert, oriented x 3, equal unlabored respirations, skin warm/dry/pink. 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 Full function Gait is steady, Speech is normal, Facial symmetry appears normal, Pupils are PERRLA, Pupil Size: 4 mm Intact Reports headache frontal area. 19:20 Pain: Complains of pain in head Pain currently is 6 out of 10 on a pain scale. Quality bm8 of pain is described as dull. Cardiovascular: Denies chest pain, lightheadedness, shortness of breath, Heart tones S1 S2 present Capillary refill < 3 seconds in bilateral fingers Pulses are all present. Respiratory: Airway is patent Trachea midline Respiratory effort is even, unlabored, Respiratory pattern is regular, symmetrical, Breath sounds are clear bilaterally. GI: No signs and/or symptoms were reported involving the gastrointestinal system. : No signs and/or symptoms were reported regarding the genitourinary system. EENT: No signs and/or symptoms were reported regarding the EENT system. Derm: No signs and/or symptoms reported regarding the dermatologic system. Musculoskeletal: No signs and/or symptoms reported regarding the musculoskeletal system. 19:20 VAN Scoring: Arm Drift: Patients demonstrates NO arm weakness. Patient is VAN Negative. bm8 Visual Disturbance: No visual disturbance noted. Aphasia: No aphasia noted. Neglect: No neglect noted. Rena Lara Swallow Protocol Exclusion Criteria: Unable to remain alert for testing: No NPO for medical/surgical reason by provider order No Head-of-bed restricted <30 degrees Tracheostomy tube present No No thin liquids due to preexisting dysphagia/baseline modified diet thickened liquids No Exclusion Criteria Result: Proceed Brief Cognitive Screen What is your name? Normal, Where are you right now? Normal, What year is it? Normal. Oral Mechanism Examination Facial Symmetry: Normal, Motion: Normal, Lip Closure: Normal, Oral Mechanism Result: Normal. 3 oz Water Swallow Challenge: Pt able to drink all water without stopping, coughing, choking or throat clearing: Yes Result: PASS MD Notified: Charlotte Pradhan PA-C. TNKase (Tenecteplase) Screening: Contraindications: Other: time of onset. 19:34 Reassessment: pt in CT. bm8 19:50 Reassessment: Patient appears in no apparent distress at this time. No changes from bm8 previously documented assessment. Patient and/or family updated on plan of care and expected duration. Pain level reassessed. Patient is alert, oriented x 3, equal unlabored respirations, skin warm/dry/pink. 20:20 Reassessment: Patient appears in no apparent distress at this time. Patient and/or bm8 family updated on plan of care and expected duration. Pain level reassessed. Patient is alert, oriented x 3, equal unlabored respirations, skin warm/dry/pink. Patient states feeling better. Patient states symptoms have improved. 20:50 Reassessment: Patient appears in no apparent distress at this time. Patient and/or bm8 family updated on plan of care and expected duration. Pain level reassessed. Patient is alert, oriented x 3, equal unlabored respirations, skin warm/dry/pink. Patient states feeling better. Patient states symptoms have improved. 21:20 Reassessment: Patient appears in no apparent distress at this time. No changes from bm8 previously documented assessment. Patient and/or family updated on plan of care and expected duration. Pain level reassessed. Patient is alert, oriented x 3, equal unlabored respirations, skin warm/dry/pink. 21:50 Reassessment: Patient appears in no apparent distress at this time. No changes from bm8 previously documented assessment. Patient and/or family updated on plan of care and expected duration. Pain level reassessed. Patient is alert, oriented x 3, equal unlabored respirations, skin warm/dry/pink. Patient denies pain at this time. Patient states feeling better. Patient states symptoms have improved. 22:20 Reassessment: Patient appears in no apparent distress at this time. No changes from bm8 previously documented assessment. Patient and/or family updated on plan of care and expected duration. Pain level reassessed. Patient is alert, oriented x 3, equal unlabored respirations, skin warm/dry/pink. Patient denies pain at this time. 22:50 Reassessment: Patient appears in no apparent distress at this time. No changes from bm8 previously documented assessment. Patient and/or family updated on plan of care and expected duration. Pain level reassessed. Patient is alert, oriented x 3, equal unlabored respirations, skin warm/dry/pink. pt requested medication to help him relax and sleep. Provider informed of pt's request. 23:20 Reassessment: Patient appears in no apparent distress at this time. Patient and/or bm8 family updated on plan of care and expected duration. Pain level reassessed. Patient is alert, oriented x 3, equal unlabored respirations, skin warm/dry/pink. Patient denies pain at this time. Patient states feeling better. Patient states symptoms have improved. 23:50 Reassessment: Patient appears in no apparent distress at this time. Patient and/or bm8 family updated on plan of care and expected duration. Pain level reassessed. Patient is alert, oriented x 3, equal unlabored respirations, skin warm/dry/pink. Patient denies pain at this time. Patient states feeling better. Patient states symptoms have improved. Vital Signs: 19:00 BP 199 / 102; Pulse 68; Resp 16; Temp 98.3; Pulse Ox 98% on R/A; Weight 82.1 kg; Height dd2 5 ft. 8 in. ; Pain 6/10; 19:20 BP 182 / 124; Pulse 74; Resp 15; Temp 98.1; Pulse Ox 96% ; Weight 83 kg; Height 5 ft. 8 bm8 in. ; Pain 6/10; 19:35 BP 183 / 108; Pulse 76; Resp 14; Temp 98.1; Pulse Ox 97% ; Pain 6/10; bm8 19:50 BP 186 / 95; Pulse 93; Resp 17; Temp 98.1; Pulse Ox 98% ; Pain 6/10; bm8 20:20 BP 182 / 96; Pulse 89; Resp 18; Temp 98.1; Pulse Ox 97% ; Pain 5/10; bm8 20:50 BP 175 / 106; Pulse 86; Resp 17; Temp 98.1; Pulse Ox 95% ; Pain 4/10; bm8 21:20 BP 179 / 104; Pulse 84; Resp 15; Temp 98.1; Pulse Ox 96% ; Pain 0/10; bm8 21:50 BP 161 / 80; Pulse 76; Resp 18; Temp 98.1; Pulse Ox 96% ; Pain 0/10; bm8 22:20 BP 169 / 102; Pulse 81; Resp 17; Temp 98.1; Pulse Ox 100% ; Pain 0/10; bm8 22:50 BP 142 / 100; Pulse 89; Resp 17; Temp 98.1; Pulse Ox 100% ; Pain 0/10; bm8 23:20 BP 141 / 80; Pulse 82; Resp 18; Temp 98.1; Pulse Ox 93% ; Pain 0/10; bm8 23:50 BP 143 / 88; Pulse 79; Resp 17; Temp 98.1; Pulse Ox 94% ; Pain 0/10; bm8 19:20 Body Mass Index 27.82 (83.00 kg, 172.72 cm) bm8 19:00 Pain Scale: Adult dd2 19:20 Pain Scale: Adult bm8 19:35 Pain Scale: Adult bm8 19:50 Pain Scale: Adult bm8 20:20 Pain Scale: Adult bm8 20:50 Pain Scale: Adult bm8 21:20 Pain Scale: Adult bm8 21:50 Pain Scale: Adult bm8 22:20 Pain Scale: Adult bm8 22:50 Pain Scale: Adult bm8 23:20 Pain Scale: Adult bm8 23:50 Pain Scale: Adult bm8 Jj Coma Score: 19:20 Eye Response: spontaneous(4). Motor Response: obeys commands(6). Verbal Response: bm8 oriented(5). Total: 15. 19:35 Eye Response: spontaneous(4). Motor Response: obeys commands(6). Verbal Response: bm8 oriented(5). Total: 15. 19:50 Eye Response: spontaneous(4). Motor Response: obeys commands(6). Verbal Response: bm8 oriented(5). Total: 15. 20:20 Eye Response: spontaneous(4). Motor Response: obeys commands(6). Verbal Response: bm8 oriented(5). Total: 15. 21:20 Eye Response: spontaneous(4). Motor Response: obeys commands(6). Verbal Response: bm8 oriented(5). Total: 15. 22:20 Eye Response: spontaneous(4). Motor Response: obeys commands(6). Verbal Response: bm8 oriented(5). Total: 15. 22:50 Eye Response: spontaneous(4). Motor Response: obeys commands(6). Verbal Response: bm8 oriented(5). Total: 15. 23:50 Eye Response: spontaneous(4). Motor Response: obeys commands(6). Verbal Response: bm8 oriented(5). Total: 15. NIH Stroke Scale Scores: 19:20 NIHSS Score: 0 bm8 19:50 NIHSS Score: 0 bm8 20:20 NIHSS Score: 0 bm8 20:50 NIHSS Score: 0 bm8 21:20 NIHSS Score: 0 bm8 22:20 NIHSS Score: 0 bm8 22:50 NIHSS Score: 0 bm8 23:20 NIHSS Score: 0 bm8 23:50 NIHSS Score: 0 bm8 ED Course: 18:52 Patient arrived in ED. im 19:01 Charlotte Pradhan PA-C is PHCP. sb4 19:01 Yang Centeno MD is Attending Physician. sb4 19:03 Triage completed. dd2 19:05 Arm band placed on right wrist. dd2 19:18 No provider procedures requiring assistance completed. Initial lab(s) drawn, by me, bm8 sent to lab. EKG done, by ED staff, reviewed by Charlotte Pradhan PA-C. 19:18 Inserted saline lock: 18 gauge in left antecubital area, using aseptic technique. Blood bm8 collected. Flushed with 10 mL NS. Patient maintains SpO2 saturation greater than 95% on room air. 19:24 Gregorio Mejia, RN is Primary Nurse. bm8 19:31 Patient has correct armband on for positive identification. Bed in low position. Call bm8 light in reach. Side rails up X 1. Adult w/ patient. Client placed on continuous cardiac and pulse oximetry monitoring. NIBP monitoring applied. monitor car operator on. Pulse ox on. NIBP on. Door closed. Noise minimized. Warm blanket given. Pillow given. Verbal reassurance given. Head of bed elevated. 19:32 CT Stroke Brain w/o Contrast In Process Unspecified. EDMS 19:35 CT Head Angio In Process Unspecified. EDMS 19:35 CT Neck Angio In Process Unspecified. EDMS 19:51 Stroke CXR 1 View In Process Unspecified. EDMS 21:53 Stephon Yee MD is Hospitalizing Provider. sb4 04/27 00:05 Provided Education on: need for admit. bm8 00:05 Patient admitted, IV remains in place. bm8 Administered Medications: 04/26 19:25 Drug: hydrALAZINE IVP 10 mg IVP See Administration Instructions; Repeat [id number] PRN for bm8 SBP 120-140mmhg Route: IVP; Site: right antecubital; 19:54 Follow up: Response: No adverse reaction bm8 19:43 Drug: hydrALAZINE IVP 10 mg IVP once Route: IVP; Site: left antecubital; bm8 19:54 Follow up: Response: No adverse reaction bm8 22:09 Drug: Acetaminophen PO 1000 mg PO once Route: PO; bm8 22:39 Follow up: Response: No adverse reaction bm8 23:02 Drug: Diazepam IVP 5 mg IVP once Route: IVP; Site: left antecubital; bm8 04/27 00:04 Follow up: Response: No adverse reaction bm8 Medication: 04/26 19:31 VIS not applicable for this client. bm8 Point of Care Testing: Blood Glucose: 19:43 Blood Glucose: 96 mg/dL; bm8 Ranges: Outcome: 21:53 Decision to Hospitalize by Provider. sb4 04/27 00:05 Admitted to Tele accompanied by nurse, via wheelchair, room 410, with chart, bm8 Condition: stable Instructed on the need for admit, Demonstrated understanding of instructions, follow-up care, medications, 00:13 Patient left the ED. bm8 NIH Stroke Scale - NIH Stroke Score Date: 04/26/2025 Time: 19:20 Total Score = 0 10. Dysarthria (speech clarity - read or repeat words) - 0(Normal) 11. Extinction and Inattention (visual/tactile/auditory/spatial/personal) - 0(No abnormality) 1a. Level of Consciousness (LOC) - 0(Alert) 1b. Level of Consciousness (LOC) (Month \T\ Age) - 0(Both) 1c. LOC Commands (Open \T\ Closes Eyes/Pharmacy Messenger) - 0(Both) 2. Best Gaze (Lateral Gaze Paresis) - 0(Normal) 3. Visual Field Loss - 0(No visual loss) 4. Facial Palsy - 0(Normal) 5a. Left Arm: Motor (10-second hold) - 0(No drift) 5b. Right Arm: Motor (10-second hold) - 0(No drift) 6a. Left Leg: Motor (5-second hold - always test supine) - 0(No drift) 6b. Right Leg: Motor (5-second hold - always test supine) - 0(No drift) 7. Limb Ataxia (finger/nose \T\ heel/bejarano - test with eyes open) - 0(Absent) 8. Sensory Loss (pinprick arms/legs/face) - 0(Normal) 9. Best Language: Aphasia (description/naming/reading) - 0(No aphasia) Initials: bm8 NIH Stroke Scale - NIH Stroke Score Date: 04/26/2025 Time: 19:50 Total Score = 0 10. Dysarthria (speech clarity - read or repeat words) - 0(Normal) 11. Extinction and Inattention (visual/tactile/auditory/spatial/personal) - 0(No abnormality) 1a. Level of Consciousness (LOC) - 0(Alert) 1b. Level of Consciousness (LOC) (Month \T\ Age) - 0(Both) 1c. LOC Commands (Open \T\ Closes Eyes/Pharmacy Messenger) - 0(Both) 2. Best Gaze (Lateral Gaze Paresis) - 0(Normal) 3. Visual Field Loss - 0(No visual loss) 4. Facial Palsy - 0(Normal) 5a. Left Arm: Motor (10-second hold) - 0(No drift) 5b. Right Arm: Motor (10-second hold) - 0(No drift) 6a. Left Leg: Motor (5-second hold - always test supine) - 0(No drift) 6b. Right Leg: Motor (5-second hold - always test supine) - 0(No drift) 7. Limb Ataxia (finger/nose \T\ heel/bejarano - test with eyes open) - 0(Absent) 8. Sensory Loss (pinprick arms/legs/face) - 0(Normal) 9. Best Language: Aphasia (description/naming/reading) - 0(No aphasia) Initials: bm8 NIH Stroke Scale - NIH Stroke Score Date: 04/26/2025 Time: 20:20 Total Score = 0 10. Dysarthria (speech clarity - read or repeat words) - 0(Normal) 11. Extinction and Inattention (visual/tactile/auditory/spatial/personal) - 0(No abnormality) 1a. Level of Consciousness (LOC) - 0(Alert) 1b. Level of Consciousness (LOC) (Month \T\ Age) - 0(Both) 1c. LOC Commands (Open \T\ Closes Eyes/Pharmacy Messenger) - 0(Both) 2. Best Gaze (Lateral Gaze Paresis) - 0(Normal) 3. Visual Field Loss - 0(No visual loss) 4. Facial Palsy - 0(Normal) 5a. Left Arm: Motor (10-second hold) - 0(No drift) 5b. Right Arm: Motor (10-second hold) - 0(No drift) 6a. Left Leg: Motor (5-second hold - always test supine) - 0(No drift) 6b. Right Leg: Motor (5-second hold - always test supine) - 0(No drift) 7. Limb Ataxia (finger/nose \T\ heel/bejarano - test with eyes open) - 0(Absent) 8. Sensory Loss (pinprick arms/legs/face) - 0(Normal) 9. Best Language: Aphasia (description/naming/reading) - 0(No aphasia) Initials: 8 NIH Stroke Scale - NIH Stroke Score Date: 04/26/2025 Time: 20:50 Total Score = 0 10. Dysarthria (speech clarity - read or repeat words) - 0(Normal) 11. Extinction and Inattention (visual/tactile/auditory/spatial/personal) - 0(No abnormality) 1a. Level of Consciousness (LOC) - 0(Alert) 1b. Level of Consciousness (LOC) (Month \T\ Age) - 0(Both) 1c. LOC Commands (Open \T\ Closes Eyes/Pharmacy Messenger) - 0(Both) 2. Best Gaze (Lateral Gaze Paresis) - 0(Normal) 3. Visual Field Loss - 0(No visual loss) 4. Facial Palsy - 0(Normal) 5a. Left Arm: Motor (10-second hold) - 0(No drift) 5b. Right Arm: Motor (10-second hold) - 0(No drift) 6a. Left Leg: Motor (5-second hold - always test supine) - 0(No drift) 6b. Right Leg: Motor (5-second hold - always test supine) - 0(No drift) 7. Limb Ataxia (finger/nose \T\ heel/bejarano - test with eyes open) - 0(Absent) 8. Sensory Loss (pinprick arms/legs/face) - 0(Normal) 9. Best Language: Aphasia (description/naming/reading) - 0(No aphasia) Initials: [facility] NIH Stroke Scale - NIH Stroke Score Date: 04/26/2025 Time: 21:20 Total Score = 0 10. Dysarthria (speech clarity - read or repeat words) - 0(Normal) 11. Extinction and Inattention (visual/tactile/auditory/spatial/personal) - 0(No abnormality) 1a. Level of Consciousness (LOC) - 0(Alert) 1b. Level of Consciousness (LOC) (Month \T\ Age) - 0(Both) 1c. LOC Commands (Open \T\ Closes Eyes/Pharmacy Messenger) - 0(Both) 2. Best Gaze (Lateral Gaze Paresis) - 0(Normal) 3. Visual Field Loss - 0(No visual loss) 4. Facial Palsy - 0(Normal) 5a. Left Arm: Motor (10-second hold) - 0(No drift) 5b. Right Arm: Motor (10-second hold) - 0(No drift) 6a. Left Leg: Motor (5-second hold - always test supine) - 0(No drift) 6b. Right Leg: Motor (5-second hold - always test supine) - 0(No drift) 7. Limb Ataxia (finger/nose \T\ heel/bejarano - test with eyes open) - 0(Absent) 8. Sensory Loss (pinprick arms/legs/face) - 0(Normal) 9. Best Language: Aphasia (description/naming/reading) - 0(No aphasia) Initials: [facility] NIH Stroke Scale - NIH Stroke Score Date: 04/26/2025 Time: 22:20 Total Score = 0 10. Dysarthria (speech clarity - read or repeat words) - 0(Normal) 11. Extinction and Inattention (visual/tactile/auditory/spatial/personal) - 0(No abnormality) 1a. Level of Consciousness (LOC) - 0(Alert) 1b. Level of Consciousness (LOC) (Month \T\ Age) - 0(Both) 1c. LOC Commands (Open \T\ Closes Eyes/Pharmacy Messenger) - 0(Both) 2. Best Gaze (Lateral Gaze Paresis) - 0(Normal) 3. Visual Field Loss - 0(No visual loss) 4. Facial Palsy - 0(Normal) 5a. Left Arm: Motor (10-second hold) - 0(No drift) 5b. Right Arm: Motor (10-second hold) - 0(No drift) 6a. Left Leg: Motor (5-second hold - always test supine) - 0(No drift) 6b. Right Leg: Motor (5-second hold - always test supine) - 0(No drift) 7. Limb Ataxia (finger/nose \T\ heel/bejarano - test with eyes open) - 0(Absent) 8. Sensory Loss (pinprick arms/legs/face) - 0(Normal) 9. Best Language: Aphasia (description/naming/reading) - 0(No aphasia) Initials: [facility] NIH Stroke Scale - NIH Stroke Score Date: 04/26/2025 Time: 22:50 Total Score = 0 10. Dysarthria (speech clarity - read or repeat words) - 0(Normal) 11. Extinction and Inattention (visual/tactile/auditory/spatial/personal) - 0(No abnormality) 1a. Level of Consciousness (LOC) - 0(Alert) 1b. Level of Consciousness (LOC) (Month \T\ Age) - 0(Both) 1c. LOC Commands (Open \T\ Closes Eyes/Pharmacy Messenger) - 0(Both) 2. Best Gaze (Lateral Gaze Paresis) - 0(Normal) 3. Visual Field Loss - 0(No visual loss) 4. Facial Palsy - 0(Normal) 5a. Left Arm: Motor (10-second hold) - 0(No drift) 5b. Right Arm: Motor (10-second hold) - 0(No drift) 6a. Left Leg: Motor (5-second hold - always test supine) - 0(No drift) 6b. Right Leg: Motor (5-second hold - always test supine) - 0(No drift) 7. Limb Ataxia (finger/nose \T\ heel/bejarano - test with eyes open) - 0(Absent) 8. Sensory Loss (pinprick arms/legs/face) - 0(Normal) 9. Best Language: Aphasia (description/naming/reading) - 0(No aphasia) Initials: bm8 NIH Stroke Scale - NIH Stroke Score Date: 04/26/2025 Time: 23:20 Total Score = 0 10. Dysarthria (speech clarity - read or repeat words) - 0(Normal) 11. Extinction and Inattention (visual/tactile/auditory/spatial/personal) - 0(No abnormality) 1a. Level of Consciousness (LOC) - 0(Alert) 1b. Level of Consciousness (LOC) (Month \T\ Age) - 0(Both) 1c. LOC Commands (Open \T\ Closes Eyes/Pharmacy Messenger) - 0(Both) 2. Best Gaze (Lateral Gaze Paresis) - 0(Normal) 3. Visual Field Loss - 0(No visual loss) 4. Facial Palsy - 0(Normal) 5a. Left Arm: Motor (10-second hold) - 0(No drift) 5b. Right Arm: Motor (10-second hold) - 0(No drift) 6a. Left Leg: Motor (5-second hold - always test supine) - 0(No drift) 6b. Right Leg: Motor (5-second hold - always test supine) - 0(No drift) 7. Limb Ataxia (finger/nose \T\ heel/bejarano - test with eyes open) - 0(Absent) 8. Sensory Loss (pinprick arms/legs/face) - 0(Normal) 9. Best Language: Aphasia (description/naming/reading) - 0(No aphasia) Initials: bm8 NIH Stroke Scale - NIH Stroke Score Date: 04/26/2025 Time: 23:50 Total Score = 0 10. Dysarthria (speech clarity - read or repeat words) - 0(Normal) 11. Extinction and Inattention (visual/tactile/auditory/spatial/personal) - 0(No abnormality) 1a. Level of Consciousness (LOC) - 0(Alert) 1b. Level of Consciousness (LOC) (Month \T\ Age) - 0(Both) 1c. LOC Commands (Open \T\ Closes Eyes/Pharmacy Messenger) - 0(Both) 2. Best Gaze (Lateral Gaze Paresis) - 0(Normal) 3. Visual Field Loss - 0(No visual loss) 4. Facial Palsy - 0(Normal) 5a. Left Arm: Motor (10-second hold) - 0(No drift) 5b. Right Arm: Motor (10-second hold) - 0(No drift) 6a. Left Leg: Motor (5-second hold - always test supine) - 0(No drift) 6b. Right Leg: Motor (5-second hold - always test supine) - 0(No drift) 7. Limb Ataxia (finger/nose \T\ heel/bejarano - test with eyes open) - 0(Absent) 8. Sensory Loss (pinprick arms/legs/face) - 0(Normal) 9. Best Language: Aphasia (description/naming/reading) - 0(No aphasia) Initials: bm8 Signatures: Dispatcher [employer] EDCharlotte Campa PA-C PA-C sb4 Marisel Herrera Brad, RN RN bm8 MEÑO MOYER RN RN dd2 Corrections: (The following items were deleted from the chart) 04/26 19:39 19:20 BP 182 / ???; Pulse 154bpm; Resp 15bpm; Pulse Ox 96%; Temp 98.1F; 83 kg; bm8 Height 5 ft. 8 in.; BMI: 27.8; Pain 6/10, Adult; 8 19:40 19:20 GCS: 15, bm8 bm8 20:10 19:20 BP 182 / 124; Pulse 154bpm; Resp 15bpm; Pulse Ox 96%; Temp 98.1F; 83 kg; bm8 Height 5 ft. 8 in.; BMI: 27.8; Pain 6/10, Adult; bm8 22:38 21:49 BP 161 / 80; Pulse 76bpm; Resp 18bpm; Pulse Ox 96%; Temp 98.1F; Pain bm8 0/10, Adult; bm8
--- NOTE | 2025-04-26 21:54 | EDPHYS ---
Physician Documentation [facility] Name: Kuldeep Abdullahi Age: 54 yrs Sex: Male : 1970 Arrival Date: 04/26/2025 Time: 18:47 Bed 3 Private MD: ED Physician Yang Centeno HPI: 04/26 23:21 This 54 yrs old Male presents to ER via Ambulatory with complaints of Memory Loss, sb4 Headache, High Blood Pressure, Abnormal Lab Results - EKG. 23:21 Patient states that his blood pressures been elevated the past few days and he has had sb4 a headache. He went to his primary care today for checkup. States he was filling out forms and he could not think of the names of people. they did an EKG, told him it was abnormal, BP was elevated, sent him to the ED. States he has been experiencing a throbbing headache in the back of his head. Denies any chest pain, shortness of breath, dizziness, blurry vision. Does report a history of hypertension, has required hospitalization in the ICU for hypertensive crises before. Historical: - Allergies: 19:03 No Known Allergies; dd2 - Home Meds: 19:44 losartan oral [Active]; bm8 - PMHx: 19:03 Hypertension; HEP C (left knee); dd2 19:05 ENLARGED HEART; dd2 - PSHx: 19:03 Appendectomy; left knee; dd2 - Immunization history:: Adult Immunizations unknown. - Infectious Disease History:: Denies. Hepatitis C. - Social history:: Smoking status: Patient reports the use of cigarette tobacco products, smokes one pack cigarettes per day. ROS: 23:21 Constitutional: Negative for fever, chills, and weight loss, sb4 23:21 Neuro: Positive for headache, Per HPI, 23:21 All other systems are negative, Exam: 20:20 Radiologist reports: negative for acute findings sb4 23:22 Constitutional: This is a well developed, well nourished patient who is awake, alert, sb4 and in no acute distress. Head/Face: Normocephalic, atraumatic. Eyes: Extra-ocular motions intact. Periorbital areas with no swelling, redness, or edema. ENT: Mucous membranes moist. Cardiovascular: Regular rate and rhythm with a normal S1 and S2. Respiratory: No increased work of breathing, no retractions or nasal flaring. Abdomen/GI: Soft, non-tender, no distension. Skin: Warm, dry with normal turgor. Normal color with no rashes, no lesions, and no evidence of cellulitis. MS/ Extremity: Pulses equal, no cyanosis. Neurovascular intact. Full, normal range of motion. Neuro: Awake and alert, GCS 15, oriented to person, place, time, and situation. Motor strength 5/5 in all extremities. Sensory grossly intact. Vital Signs: 19:00 BP 199 / 102; Pulse 68; Resp 16; Temp 98.3; Pulse Ox 98% on R/A; Weight 82.1 kg; Height dd2 5 ft. 8 in. ; Pain 6/10; 19:20 BP 182 / 124; Pulse 74; Resp 15; Temp 98.1; Pulse Ox 96% ; Weight 83 kg; Height 5 ft. 8 bm8 in. ; Pain 6/10; 19:35 BP 183 / 108; Pulse 76; Resp 14; Temp 98.1; Pulse Ox 97% ; Pain 6/10; bm8 19:50 BP 186 / 95; Pulse 93; Resp 17; Temp 98.1; Pulse Ox 98% ; Pain 6/10; bm8 20:20 BP 182 / 96; Pulse 89; Resp 18; Temp 98.1; Pulse Ox 97% ; Pain 5/10; bm8 20:50 BP 175 / 106; Pulse 86; Resp 17; Temp 98.1; Pulse Ox 95% ; Pain 4/10; bm8 21:20 BP 179 / 104; Pulse 84; Resp 15; Temp 98.1; Pulse Ox 96% ; Pain 0/10; bm8 21:50 BP 161 / 80; Pulse 76; Resp 18; Temp 98.1; Pulse Ox 96% ; Pain 0/10; bm8 22:20 BP 169 / 102; Pulse 81; Resp 17; Temp 98.1; Pulse Ox 100% ; Pain 0/10; bm8 22:50 BP 142 / 100; Pulse 89; Resp 17; Temp 98.1; Pulse Ox 100% ; Pain 0/10; bm8 23:20 BP 141 / 80; Pulse 82; Resp 18; Temp 98.1; Pulse Ox 93% ; Pain 0/10; bm8 23:50 BP 143 / 88; Pulse 79; Resp 17; Temp 98.1; Pulse Ox 94% ; Pain 0/10; bm8 19:20 Body Mass Index 27.82 (83.00 kg, 172.72 cm) bm8 19:00 Pain Scale: Adult dd2 19:20 Pain Scale: Adult bm8 19:35 Pain Scale: Adult bm8 19:50 Pain Scale: Adult bm8 20:20 Pain Scale: Adult bm8 20:50 Pain Scale: Adult bm8 21:20 Pain Scale: Adult bm8 21:50 Pain Scale: Adult bm8 22:20 Pain Scale: Adult bm8 22:50 Pain Scale: Adult bm8 23:20 Pain Scale: Adult bm8 23:50 Pain Scale: Adult bm8 NIH Stroke Scale Scores: 19:20 NIHSS Score: 0 bm8 19:50 NIHSS Score: 0 bm8 20:20 NIHSS Score: 0 bm8 20:50 NIHSS Score: 0 bm8 21:20 NIHSS Score: 0 bm8 22:20 NIHSS Score: 0 bm8 22:50 NIHSS Score: 0 bm8 23:20 NIHSS Score: 0 bm8 23:50 NIHSS Score: 0 bm8 Jj Coma Score: 19:20 Eye Response: spontaneous(4). Motor Response: obeys commands(6). Verbal Response: bm8 oriented(5). Total: 15. 19:35 Eye Response: spontaneous(4). Motor Response: obeys commands(6). Verbal Response: bm8 oriented(5). Total: 15. 19:50 Eye Response: spontaneous(4). Motor Response: obeys commands(6). Verbal Response: bm8 oriented(5). Total: 15. 20:20 Eye Response: spontaneous(4). Motor Response: obeys commands(6). Verbal Response: bm8 oriented(5). Total: 15. 21:20 Eye Response: spontaneous(4). Motor Response: obeys commands(6). Verbal Response: bm8 oriented(5). Total: 15. 22:20 Eye Response: spontaneous(4). Motor Response: obeys commands(6). Verbal Response: bm8 oriented(5). Total: 15. 22:50 Eye Response: spontaneous(4). Motor Response: obeys commands(6). Verbal Response: bm8 oriented(5). Total: 15. 23:50 Eye Response: spontaneous(4). Motor Response: obeys commands(6). Verbal Response: bm8 oriented(5). Total: 15. MDM: 19:03 Medical Screening Exam initiated sb4 23:22 Differential diagnosis: Hypertensive crisis, CVA, TIA, hypertension, ACS. Data sb4 reviewed: vital signs, nurses notes, lab test result(s), EKG, radiologic studies, and as a result, I will admit patient. Consideration of Admission/Observation Patient was admitted/placed on observation. Care significantly affected by the following chronic conditions: Hypertension. Counseling: I had a detailed discussion with the patient and/or guardian regarding the historical points, exam findings, and any diagnostic results supporting the discharge/admit diagnosis, the presence of at least one elevated blood pressure reading (>120/80) during this emergency department visit, lab results, radiology results, the need for further work-up and treatment in the hospital. 04/26 19:11 Order name: Basic Metabolic Panel; Complete Time: 19:53 sb 04/26 19:11 Order name: CBC with Diff; Complete Time: 19:30 sb4 04/26 19:11 Order name: Hepatic Function; Complete Time: 19:53 sb4 04/26 19:11 Order name: High Sensitivity Troponin; Complete Time: 19:53 sb4 04/26 19:11 Order name: Magnesium; Complete Time: 19:53 sb4 04/26 19:11 Order name: Protime (+inr); Complete Time: 20:03 sb4 04/26 19:11 Order name: Ptt, Activated; Complete Time: 20:03 sb 04/26 19:54 Order name: Glucose, Ancillary Testing; Complete Time: 19:55 EDMS 04/26 20:39 Order name: Troponin High Sensitivity; Complete Time: 21:48 sb4 04/26 23:21 Order name: CBC with Automated Diff EDMS 04/26 23:21 Order name: CBC with Automated Diff EDMS 04/26 23:21 Order name: Comprehensive Metabolic Panel EDMS 04/26 23:21 Order name: Comprehensive Metabolic Panel EDMS 04/26 23:21 Order name: Troponin High Sensitivity EDMS 04/26 23:21 Order name: Troponin High Sensitivity EDLA 04/26 19:11 Order name: CT Head Angio; Complete Time: 19:53 sb4 04/26 19:11 Order name: CT Neck Angio; Complete Time: 19:53 sb4 04/26 19:11 Order name: CT Stroke Brain w/o Contrast; Complete Time: 19:53 sb4 04/26 19:11 Order name: Stroke CXR 1 View; Complete Time: 20:08 sb4 04/26 23:22 Order name: Echo with Doppler EDMS 04/26 19:11 Order name: Accucheck; Complete Time: 19: sb4 04/26 19:11 Order name: Cardiac monitoring; Complete Time: : sb4 04/26 19:11 Order name: EKG - Nurse/Tech; Complete Time: : sb4 04/26 19:11 Order name: IV Saline Lock; Complete Time: : sb4 04/26 19:11 Order name: Labs collected and sent; Complete Time: : sb4 04/26 19:11 Order name: NPO; Complete Time: : sb4 04/26 19:11 Order name: O2 Per Protocol; Complete Time: : sb4 04/26 19:11 Order name: O2 Sat Monitoring; Complete Time: : sb4 04/26 19:11 Order name: Stroke Swallow Screen; Complete Time: 19:26 sb4 EC:20 Rate is 66 beats/min. Rhythm is regular, Normal Sinus Rhythm. MS interval is normal at sb4 184 msec. QRS interval is normal at 120 msec. QT interval is prolonged at 464 msec. No Q waves. Clinical impression: NSR w/ Non-specific ST/T Changes. Interpreted by me. Reviewed by me. Administered Medications: 19:25 Drug: hydrALAZINE IVP 10 mg IVP See Administration Instructions; Repeat [id number] PRN for bm8 SBP 120-140mmhg Route: IVP; Site: right antecubital; 19:54 Follow up: Response: No adverse reaction bm8 19:43 Drug: hydrALAZINE IVP 10 mg IVP once Route: IVP; Site: left antecubital; bm8 19:54 Follow up: Response: No adverse reaction bm8 22:09 Drug: Acetaminophen PO 1000 mg PO once Route: PO; bm8 22:39 Follow up: Response: No adverse reaction bm8 23:02 Drug: Diazepam IVP 5 mg IVP once Route: IVP; Site: left antecubital; bm8 04/27 00:04 Follow up: Response: No adverse reaction bm8 Point of Care Testing: Blood Glucose: 04/26 19:43 Blood Glucose: 96 mg/dL; bm8 Ranges: Critical Glucose Levels:Adult <50 mg/dl or >400 mg/dl <40 mg/dl or >180 mg/dl Disposition Summary: 04/26/25 21:53 Hospitalization Ordered Notes: Hospitalization Status: Observation sb4 Provider: Stephon Yee sb4 Location: Telemetry/MedSurg (observation) sb4 Condition: Stable sb4 Problem: new sb4 Symptoms: are unchanged sb4 Bed/Room Type: Standard sb4 Room Assignment: 410(04/26/25 23:30) vk Diagnosis - Hypertensive urgency sb4 - Elevated troponin sb4 Forms: - Medication Reconciliation Form sb4 - SBAR form sb4 - Leadership Thank You Letter sb4 NIH Stroke Scale - NIH Stroke Score Date: 04/26/2025 Time: 19:20 Total Score = 0 10. Dysarthria (speech clarity - read or repeat words) - 0(Normal) 11. Extinction and Inattention (visual/tactile/auditory/spatial/personal) - 0(No abnormality) 1a. Level of Consciousness (LOC) - 0(Alert) 1b. Level of Consciousness (LOC) (Month \T\ Age) - 0(Both) 1c. LOC Commands (Open \T\ Closes Eyes/Outreach Rep) - 0(Both) 2. Best Gaze (Lateral Gaze Paresis) - 0(Normal) 3. Visual Field Loss - 0(No visual loss) 4. Facial Palsy - 0(Normal) 5a. Left Arm: Motor (10-second hold) - 0(No drift) 5b. Right Arm: Motor (10-second hold) - 0(No drift) 6a. Left Leg: Motor (5-second hold - always test supine) - 0(No drift) 6b. Right Leg: Motor (5-second hold - always test supine) - 0(No drift) 7. Limb Ataxia (finger/nose \T\ heel/bejarano - test with eyes open) - 0(Absent) 8. Sensory Loss (pinprick arms/legs/face) - 0(Normal) 9. Best Language: Aphasia (description/naming/reading) - 0(No aphasia) Initials: [facility] NIH Stroke Scale - NIH Stroke Score Date: 04/26/2025 Time: 19:50 Total Score = 0 10. Dysarthria (speech clarity - read or repeat words) - 0(Normal) 11. Extinction and Inattention (visual/tactile/auditory/spatial/personal) - 0(No abnormality) 1a. Level of Consciousness (LOC) - 0(Alert) 1b. Level of Consciousness (LOC) (Month \T\ Age) - 0(Both) 1c. LOC Commands (Open \T\ Closes Eyes/Outreach Rep) - 0(Both) 2. Best Gaze (Lateral Gaze Paresis) - 0(Normal) 3. Visual Field Loss - 0(No visual loss) 4. Facial Palsy - 0(Normal) 5a. Left Arm: Motor (10-second hold) - 0(No drift) 5b. Right Arm: Motor (10-second hold) - 0(No drift) 6a. Left Leg: Motor (5-second hold - always test supine) - 0(No drift) 6b. Right Leg: Motor (5-second hold - always test supine) - 0(No drift) 7. Limb Ataxia (finger/nose \T\ heel/bejarano - test with eyes open) - 0(Absent) 8. Sensory Loss (pinprick arms/legs/face) - 0(Normal) 9. Best Language: Aphasia (description/naming/reading) - 0(No aphasia) Initials: [facility] NIH Stroke Scale - NIH Stroke Score Date: 04/26/2025 Time: 20:20 Total Score = 0 10. Dysarthria (speech clarity - read or repeat words) - 0(Normal) 11. Extinction and Inattention (visual/tactile/auditory/spatial/personal) - 0(No abnormality) 1a. Level of Consciousness (LOC) - 0(Alert) 1b. Level of Consciousness (LOC) (Month \T\ Age) - 0(Both) 1c. LOC Commands (Open \T\ Closes Eyes/Outreach Rep) - 0(Both) 2. Best Gaze (Lateral Gaze Paresis) - 0(Normal) 3. Visual Field Loss - 0(No visual loss) 4. Facial Palsy - 0(Normal) 5a. Left Arm: Motor (10-second hold) - 0(No drift) 5b. Right Arm: Motor (10-second hold) - 0(No drift) 6a. Left Leg: Motor (5-second hold - always test supine) - 0(No drift) 6b. Right Leg: Motor (5-second hold - always test supine) - 0(No drift) 7. Limb Ataxia (finger/nose \T\ heel/bejarano - test with eyes open) - 0(Absent) 8. Sensory Loss (pinprick arms/legs/face) - 0(Normal) 9. Best Language: Aphasia (description/naming/reading) - 0(No aphasia) Initials: 8 NIH Stroke Scale - NIH Stroke Score Date: 04/26/2025 Time: 20:50 Total Score = 0 10. Dysarthria (speech clarity - read or repeat words) - 0(Normal) 11. Extinction and Inattention (visual/tactile/auditory/spatial/personal) - 0(No abnormality) 1a. Level of Consciousness (LOC) - 0(Alert) 1b. Level of Consciousness (LOC) (Month \T\ Age) - 0(Both) 1c. LOC Commands (Open \T\ Closes Eyes/Outreach Rep) - 0(Both) 2. Best Gaze (Lateral Gaze Paresis) - 0(Normal) 3. Visual Field Loss - 0(No visual loss) 4. Facial Palsy - 0(Normal) 5a. Left Arm: Motor (10-second hold) - 0(No drift) 5b. Right Arm: Motor (10-second hold) - 0(No drift) 6a. Left Leg: Motor (5-second hold - always test supine) - 0(No drift) 6b. Right Leg: Motor (5-second hold - always test supine) - 0(No drift) 7. Limb Ataxia (finger/nose \T\ heel/bejarano - test with eyes open) - 0(Absent) 8. Sensory Loss (pinprick arms/legs/face) - 0(Normal) 9. Best Language: Aphasia (description/naming/reading) - 0(No aphasia) Initials: 8 NIH Stroke Scale - NIH Stroke Score Date: 04/26/2025 Time: 21:20 Total Score = 0 10. Dysarthria (speech clarity - read or repeat words) - 0(Normal) 11. Extinction and Inattention (visual/tactile/auditory/spatial/personal) - 0(No abnormality) 1a. Level of Consciousness (LOC) - 0(Alert) 1b. Level of Consciousness (LOC) (Month \T\ Age) - 0(Both) 1c. LOC Commands (Open \T\ Closes Eyes/Outreach Rep) - 0(Both) 2. Best Gaze (Lateral Gaze Paresis) - 0(Normal) 3. Visual Field Loss - 0(No visual loss) 4. Facial Palsy - 0(Normal) 5a. Left Arm: Motor (10-second hold) - 0(No drift) 5b. Right Arm: Motor (10-second hold) - 0(No drift) 6a. Left Leg: Motor (5-second hold - always test supine) - 0(No drift) 6b. Right Leg: Motor (5-second hold - always test supine) - 0(No drift) 7. Limb Ataxia (finger/nose \T\ heel/bejarano - test with eyes open) - 0(Absent) 8. Sensory Loss (pinprick arms/legs/face) - 0(Normal) 9. Best Language: Aphasia (description/naming/reading) - 0(No aphasia) Initials: bm8 NIH Stroke Scale - NIH Stroke Score Date: 04/26/2025 Time: 22:20 Total Score = 0 10. Dysarthria (speech clarity - read or repeat words) - 0(Normal) 11. Extinction and Inattention (visual/tactile/auditory/spatial/personal) - 0(No abnormality) 1a. Level of Consciousness (LOC) - 0(Alert) 1b. Level of Consciousness (LOC) (Month \T\ Age) - 0(Both) 1c. LOC Commands (Open \T\ Closes Eyes/Outreach Rep) - 0(Both) 2. Best Gaze (Lateral Gaze Paresis) - 0(Normal) 3. Visual Field Loss - 0(No visual loss) 4. Facial Palsy - 0(Normal) 5a. Left Arm: Motor (10-second hold) - 0(No drift) 5b. Right Arm: Motor (10-second hold) - 0(No drift) 6a. Left Leg: Motor (5-second hold - always test supine) - 0(No drift) 6b. Right Leg: Motor (5-second hold - always test supine) - 0(No drift) 7. Limb Ataxia (finger/nose \T\ heel/bejarano - test with eyes open) - 0(Absent) 8. Sensory Loss (pinprick arms/legs/face) - 0(Normal) 9. Best Language: Aphasia (description/naming/reading) - 0(No aphasia) Initials: [facility] NIH Stroke Scale - NIH Stroke Score Date: 04/26/2025 Time: 22:50 Total Score = 0 10. Dysarthria (speech clarity - read or repeat words) - 0(Normal) 11. Extinction and Inattention (visual/tactile/auditory/spatial/personal) - 0(No abnormality) 1a. Level of Consciousness (LOC) - 0(Alert) 1b. Level of Consciousness (LOC) (Month \T\ Age) - 0(Both) 1c. LOC Commands (Open \T\ Closes Eyes/Outreach Rep) - 0(Both) 2. Best Gaze (Lateral Gaze Paresis) - 0(Normal) 3. Visual Field Loss - 0(No visual loss) 4. Facial Palsy - 0(Normal) 5a. Left Arm: Motor (10-second hold) - 0(No drift) 5b. Right Arm: Motor (10-second hold) - 0(No drift) 6a. Left Leg: Motor (5-second hold - always test supine) - 0(No drift) 6b. Right Leg: Motor (5-second hold - always test supine) - 0(No drift) 7. Limb Ataxia (finger/nose \T\ heel/bejarano - test with eyes open) - 0(Absent) 8. Sensory Loss (pinprick arms/legs/face) - 0(Normal) 9. Best Language: Aphasia (description/naming/reading) - 0(No aphasia) Initials: [facility] NIH Stroke Scale - NIH Stroke Score Date: 04/26/2025 Time: 23:20 Total Score = 0 10. Dysarthria (speech clarity - read or repeat words) - 0(Normal) 11. Extinction and Inattention (visual/tactile/auditory/spatial/personal) - 0(No abnormality) 1a. Level of Consciousness (LOC) - 0(Alert) 1b. Level of Consciousness (LOC) (Month \T\ Age) - 0(Both) 1c. LOC Commands (Open \T\ Closes Eyes/Outreach Rep) - 0(Both) 2. Best Gaze (Lateral Gaze Paresis) - 0(Normal) 3. Visual Field Loss - 0(No visual loss) 4. Facial Palsy - 0(Normal) 5a. Left Arm: Motor (10-second hold) - 0(No drift) 5b. Right Arm: Motor (10-second hold) - 0(No drift) 6a. Left Leg: Motor (5-second hold - always test supine) - 0(No drift) 6b. Right Leg: Motor (5-second hold - always test supine) - 0(No drift) 7. Limb Ataxia (finger/nose \T\ heel/bejarano - test with eyes open) - 0(Absent) 8. Sensory Loss (pinprick arms/legs/face) - 0(Normal) 9. Best Language: Aphasia (description/naming/reading) - 0(No aphasia) Initials: bm8 NIH Stroke Scale - NIH Stroke Score Date: 04/26/2025 Time: 23:50 Total Score = 0 10. Dysarthria (speech clarity - read or repeat words) - 0(Normal) 11. Extinction and Inattention (visual/tactile/auditory/spatial/personal) - 0(No abnormality) 1a. Level of Consciousness (LOC) - 0(Alert) 1b. Level of Consciousness (LOC) (Month \T\ Age) - 0(Both) 1c. LOC Commands (Open \T\ Closes Eyes/Outreach Rep) - 0(Both) 2. Best Gaze (Lateral Gaze Paresis) - 0(Normal) 3. Visual Field Loss - 0(No visual loss) 4. Facial Palsy - 0(Normal) 5a. Left Arm: Motor (10-second hold) - 0(No drift) 5b. Right Arm: Motor (10-second hold) - 0(No drift) 6a. Left Leg: Motor (5-second hold - always test supine) - 0(No drift) 6b. Right Leg: Motor (5-second hold - always test supine) - 0(No drift) 7. Limb Ataxia (finger/nose \T\ heel/bejarano - test with eyes open) - 0(Absent) 8. Sensory Loss (pinprick arms/legs/face) - 0(Normal) 9. Best Language: Aphasia (description/naming/reading) - 0(No aphasia) Initials: bm8 Addendum: 04/30/2025 09:04 Co-signature as Attending Physician, Yang Centeno MD I reviewed the patient's rn care provided by the Advanced Practice Provider and agree with the diagnosis and treatment plan. Signatures: Dispatcher [employer] EDMS Yang Centeno MD MD rn Brown, Sophia PASalvadorC PA-C sb4 Skylar Leon vk Gregorio Mejia, RN RN bm8 MEÑO MOYER, RN RN dd2 Corrections: (The following items were deleted from the chart) 04/26 19:12 19:11 BASIC METABOLIC PANEL+C.LAB.BRZ ordered. EDMS EDMS 19:12 19:11 CBC+H.LAB.BRZ ordered. EDMS EDMS 19:12 19:11 HEPATIC FUNCTION+C.LAB.BRZ ordered. EDMS EDMS 19:12 19:11 Troponin High Sensitivity+C.LAB.BRZ ordered. EDMS EDMS 19:12 19:11 MAGNESIUM+C.LAB.BRZ ordered. EDMS EDMS 19:12 19:11 PROTIME (+INR)+COAG.LAB.BRZ ordered. EDMS EDMS 19:12 19:11 PTT, ACTIVATED+COAG.LAB.BRZ ordered. EDMS EDMS 19:12 19:12 Head Angio+CT.RAD.BRZ ordered. EDMS EDMS 19:12 19:12 Neck Angio+CT.RAD.BRZ ordered. EDMS EDMS 19:12 19:12 CT-STROKE BRAIN W/O CONTRAST+CT.RAD.BRZ ordered. EDMS EDMS 19:12 19:12 Chest Single View+RAD.RAD.BRZ ordered. EDLA EDMS 23:23 23:21 Patient states that his blood pressures been elevated the past few days sb4 and he has had a headache. He went to his primary care today for checkup. They did an EKG, told him it was abnormal, and given his elevated blood pressure sent him to the ED. States he has been experiencing a throbbing headache in the back of his head. Denies any chest pain, shortness of breath, dizziness, blurry vision. Does report a history of hypertension, has required hospitalization in the ICU for hypertensive crises before. sb4 23:23 23:21 Neuro: Positive for headache, sb4 sb4 23:30 21:53 sb4 vk
[2025-04-26] MEDS ORDERED: ACETAMINOPHEN 500 MG TAB ONE (22:04)
[2025-04-26] MEDS ORDERED: DIAZEPAM 10 MG/2 ML INJ SYRINGE ONE (22:57)
[2025-04-26] MEDS ORDERED: ONDANSETRON 4 MG/2 ML VIAL IV PRN (23:16)
--- NOTE | 2025-04-26 23:16 | P.HP ---
Certification for Inpatient Patient admitted to: Observation With expected LOS: <2 Midnights Practitioner: I am a practitioner with admitting privileges, knowledge of patient current condition, hospital course, and medical plan of care. Services: Services provided to patient in accordance with Admission requirements found in Title 42 Section 412.3 of the Code of Federal Regulations Patient History Date of Service: 04/27/25 Reason for admission: Dizziness History of Present Illness: 54 yrs old Male with past medical history of hypertension, hep C, history of enlarged heart who was brought to ER with complaints of elevated blood pressure and generalized weakness and chest discomfort. Patient initially had headache bifrontal , and had a work up possible CVA with CT of the head which was negative. He states that his blood pressure has been elevated for the last few days and he started having headache. He saw the PCP today and was sent to the ER because of abnormal EKG and elevated blood pressure. Patient denies any chest pain but has some chest discomfort and a throbbing headache. Denies any shortness of breath. No fever or chills. Patient was assessed in the ER and was found to have elevated troponin and was admitted for further management Allergies No Known Allergies Allergy (Unverified 08/13/24 21:49) Home medications list reviewed: Yes Home Medications: Aspirin [Aspirin EC] 81 mg PO DAILY 90 Days #90 tab 11/01/23 Atorvastatin Calcium [Lipitor] 40 mg PO BEDTIME 90 Days #90 tab 08/14/24 Losartan Potassium [Cozaar*] 25 mg PO DAILY 30 Days #15 tab 08/14/24 Metoprolol Tartrate [Lopressor*] 50 mg PO BID 30 Days #60 tab 08/14/24 Spironolactone [Aldactone*] 25 mg PO DAILY 30 Days #30 tab 08/14/24 - Past Medical/Surgical History Diabetic: No Past Medical History: Reviewed- Non-Contributory -: Nephrolithiasis -: Hypertension Past Surgical History: Reviewed- Non-Contributory -: Appendectomy -: left knee surgery - Family History Father -: Heart disease, Hypertension, GI disease Mother -: Heart disease, Diabetes, Cancer - Social History Smoking Status: Never smoker Alcohol use: No CD- Drugs: No Caffeine use: Yes Review of Systems 10-point ROS is otherwise unremarkable Other: Constitutional: Reports: generalized weakness. Skin: Denies: rash. Allergy/Immun: Denies: rhinorrhea, sneezing. Eyes: Denies: visual loss/blurred. ENT: Denies: earache, nasal congestion. Respiratory: Denies: non productive cough. Cardiovascular: Denies: chest pain, palpitations. GI: Denies: diarrhea, nausea. : Denies: dysuria. Musculoskeletal: Reports: arthritis. Denies: extremity pain. Heme: Denies: bleeding. Endocrine: Denies: polydipsia. Neuro: Reports: dizziness, gait problem, lightheaded, spinning sensation. Psych: Reports: anxiety. All systems rev & neg: except as noted Physical Examination - Vital Signs Temperature: 98.3 F Blood Pressure: 198/102 Pulse: 68 Respirations: 16 Pulse Ox (%): 97 - Physical Exam General: Alert, In no apparent distress, Oriented x3 HEENT: Atraumatic, Normocephalic Neck: Supple, No Thyromegaly Respiratory: Clear to auscultation bilaterally, Normal air movement Cardiovascular: Regular rate/rhythm, Normal S1 S2 Capillary refill: <2 Seconds Gastrointestinal: Soft and benign, W/out hepatosplenomegaly Musculoskeletal: No clubbing, No swelling Integumentary: No rashes Neurological: Other (Alert awake nonfocal) Lymphatics: No axilla or inguinal lymphadenopathy - Studies Laboratory Data (last 24 hrs) 04/26/25 04/26/25 04/26/25 19:17 19:17 19:17 WBC 8.20 Hgb 17.8 Hct 52.0 H Plt Count 205 PT 11.8 INR 1.05 APTT 36.6 Sodium 137 Potassium 3.7 BUN 19 H Creatinine 1.04 Glucose 114 H Magnesium 2.0 Total Bilirubin 0.5 AST 51 H ALT 66 H Alkaline Phosphatase 74 Assessment and Plan - Plan NSTEMI possibly type II due to hypertensive urgency Will trend cardiac enzymes Will monitor telemetry Started on aspirin and statin Patient denies any chest pain at the time of interview Will get an echocardiogram Cardiology consult Hypertensive urgency Hydralazine as needed Continue home medications and titrate as needed Headache CT, CTA were negative Pain control GI/DVT prophylaxis Advanced directive full code Discharge Plan: Home Plan to discharge in: 48 Hours - Advance Directives Does patient have a Living Will: No Does patient have a Durable POA for Healthcare: No - Code Status/Comfort Care Code Status: Full Code Time Spent Managing Pts Care (In Minutes): 48
[2025-04-26] MEDS: NA CHLORIDE 0.9% 1,000 ML IV SCH (23:45)
[2025-04-27] MEDS: HEPARIN 5000 UNIT/ML 1 ML VIAL SQ SCH (00:51)
[2025-04-27] MEDS ORDERED: ACETAMINOPHEN 325 MG TABLET PO PRN (02:00)
[2025-04-27 04:58] LABS: Absolute Lymphocytes (CBC) 2.2 K/uL (0.7-4.9); Hematocrit 51.6 % (39.6-49.0); Hemoglobin 17.7 g/dL (13.6-17.9); MCH 31.3 pg (27.0-35.0); MCHC 34.3 g/dL (32.0-36.0); MCV 91.4 fL (80-100); MPV 9.4 fL (7.6-11.3); Nucleated RBC Absolute Count 0.0 (0-0); Nucleated Red Blood Cells % 0.2 % (0-0); RBC Red Blood Cell Count 5.64 M/uL (4.33-5.43); White Blood Count 9.30 thou/uL (4.3-10.9)
[2025-04-27 05:09] LABS: ALT/SGPT 60.0 U/L (16-61); AST/SGOT 44.0 U/L (15-37); Albumin 3.5 g/dL (3.4-5.0); Albumin/Globulin Ratio 0.9 (1.1-1.8); Alkaline Phosphatase 67.0 U/L (45-117); Anion Gap 8.0 mEq/L (5.0-15.0); BUN Blood Urea Nitrogen 17.0 mg/dL (7-18); Globulin 3.7 g/dL (2.3-3.5); Glucose Level 92.0 mg/dL (74-106); Potassium 4.0 mEq/L (3.5-5.1)
[2025-04-27] MEDS: HYDRALAZINE HCL 20 MG/ML VIAL IV PRN (09:14)
[2025-04-27] MEDS: METOPROLOL TARTRATE 5 MG/5 ML INJ IV STA (10:14)
[2025-04-27] MEDS: METOPROLOL TAR 25 MG TAB PO ONE (10:18)
[2025-04-27] MEDS: METOPROLOL TAR 50 MG TAB PO SCH (17:38)
[2025-04-27] MEDS: DIAZEPAM 5 MG TABLET PO PRN (22:36)
--- NOTE | 2025-04-28 00:43 | P.PN ---
Date of Service: 04/27/25 Subjective Patient is clinically doing well. Troponins are elevated. Seen by Cardiology. No interventions at this time. Outpatient follow-up. Patient needs to continue with strict blood pressure control. Will repeat labs in AM, and if troponin is downward trending then anticipate discharge. Patient was counseled regarding tobacco cessation. Physical Examination - Vital Signs reviewed - Physical Exam General: Alert, In no apparent distress, Oriented x3 Respiratory: Clear to auscultation bilaterally, Normal air movement Cardiovascular: Regular rate/rhythm, Normal S1 S2 Gastrointestinal: Soft and benign, W/out hepatosplenomegaly Musculoskeletal: No clubbing, No swelling Integumentary: No rashes Neurological: Other (Alert awake nonfocal) Assessment and Plan - Assessment/Plan 1. Type II UT; secondary to hypertensive urgency; Troponins were elevated. Will repeat troponins in the morning. Continue with anti-platelet therapy and statin therapy. Cardiology recommending outpatient follow-up. Continue with strict blood pressure control. Continue monitoring hemodynamics. Anticipate discharge in a.m.. 2. Persistent headache; continue with pain control. Outpatient follow-up with Neurology. 3. Tobacco use; addictions counselor assistant regarding tobacco cessation 4. Gi DVT prophylaxis Discharge Plan: Home Plan to discharge in: 48 Hours - Advance Directives Does patient have a Living Will: No Does patient have a Durable POA for Healthcare: No - Code Status/Comfort Care Code Status: Full Code Time Spent Managing Pts Care (In Minutes): 30
[2025-04-28 02:36] VITALS: BMI 27.8
[2025-04-28 06:05] LABS: Absolute Lymphocytes (CBC) 1.8 K/uL (0.7-4.9); Hematocrit 51.7 % (39.6-49.0); Hemoglobin 17.8 g/dL (13.6-17.9); MCH 31.7 pg (27.0-35.0); MCHC 34.4 g/dL (32.0-36.0); MCV 92.2 fL (80-100); MPV 9.3 fL (7.6-11.3); Nucleated RBC Absolute Count 0.0 (0-0); Nucleated Red Blood Cells % 0.1 % (0-0); RBC Red Blood Cell Count 5.60 M/uL (4.33-5.43); White Blood Count 8.50 thou/uL (4.3-10.9)
[2025-04-28 06:32] LABS: ALT/SGPT 47.0 U/L (16-61); AST/SGOT 42.0 U/L (15-37); Albumin 3.4 g/dL (3.4-5.0); Albumin/Globulin Ratio 0.9 (1.1-1.8); Alkaline Phosphatase 60.0 U/L (45-117); Anion Gap 6.2 mEq/L (5.0-15.0); BUN Blood Urea Nitrogen 19.0 mg/dL (7-18); Globulin 3.6 g/dL (2.3-3.5); Glucose Level 91.0 mg/dL (74-106); HDL Cholesterol 40.0 mg/dL (40-60); LDL Cholesterol, Calculated 77.0 mg/dL (<130); LDL Cholesterol,Calc NonReport 77.0; Magnesium 1.9 mg/dL (1.6-2.4); NT PRO-BNP 4770.0 pg/mL (<125); Potassium 4.2 mEq/L (3.5-5.1)
[2025-04-28 06:38] LABS: Troponin High Sensitivity 90.8 pg/mL (<58.9)
--- NOTE | 2025-04-28 11:16 | P.PN ---
Date of Service: 04/28/25 Subjective: no events overnight denies any new or worsening problems BP more controlled Physical Exam: Gen: Alert, NAD, Orientedx3 CV: Regular rate and rhythm, no edema Pulm: Nonlabored respirations on room air, clear bilaterally Abdomen: Soft, nontender, nondistended Neuro: Normal strength, normal affect Problem List: NSTEMI Hypertensive urgency, improved Headache Hx of Hep C on admission, presents with chest discomfort associated with weakness, headache, elevated BP CT brain (04/26): negative for any acute findings, noted small remote left caudate head lacunar infarct CTA neck (04/26): partially calcified mass in the right neck measuring 2.8 x 2 cm. CTA head (04/26): negative Troponins mildly elevated but trended flat. Peaked at 101. Cardiology consulted Monitor on telemetry BNP 4770. Rest of the labs unremarkable. Continue metoprolol 50mg BID Echo completed, pending report BP more controlled in 150-160s VTE: Heparin sq Code: Full Dispo: Home Pending cardiac recs
[2025-04-28 21:49] VITALS: O2SAT 97
[2025-04-29 07:49] LABS: Absolute Lymphocytes (CBC) 1.7 K/uL (0.7-4.9); Hematocrit 51.0 % (39.6-49.0); Hemoglobin 17.4 g/dL (13.6-17.9); MCH 31.3 pg (27.0-35.0); MCHC 34.1 g/dL (32.0-36.0); MCV 91.8 fL (80-100); MPV 9.2 fL (7.6-11.3); Nucleated RBC Absolute Count 0.0 (0-0); Nucleated Red Blood Cells % 0.1 % (0-0); RBC Red Blood Cell Count 5.56 M/uL (4.33-5.43); White Blood Count 7.20 thou/uL (4.3-10.9)
[2025-04-29 08:05] LABS: Anion Gap 6.1 mEq/L (5.0-15.0); BUN Blood Urea Nitrogen 17.0 mg/dL (7-18); Glucose Level 101.0 mg/dL (74-106); Potassium 4.1 mEq/L (3.5-5.1)
--- NOTE | 2025-04-29 15:47 | P.PN ---
Date of Service: 04/29/25 Subjective: Vital stable overnight denies any new or worsening problems Denies chest pain, shortness of breath, fevers, chills Physical Exam: Gen: Alert, NAD, Orientedx3 CV: Regular rate and rhythm, no edema Pulm: Nonlabored respirations on room air, clear bilaterally Abdomen: Soft, nontender, nondistended Neuro: Normal strength, normal affect Problem List: NSTEMI Hypertensive urgency, improved Headache Hx of Hep C on admission, presents with chest discomfort associated with weakness, headache, elevated BP CT brain (04/26): negative for any acute findings, noted small remote left caudate head lacunar infarct CTA neck (04/26): partially calcified mass in the right neck measuring 2.8 x 2 cm. CTA head (04/26): negative Troponins mildly elevated but trended flat. Peaked at 101--> 90 Cardiology consulted Monitor on telemetry BNP 4770. Rest of the labs unremarkable. Continue metoprolol 50mg BID Echo completed, pending report BP more controlled in 150-160s VTE: Heparin sq Code: Full Dispo: Home Pending cardiac recs
--- NOTE | 2025-04-30 07:37 | ECHO ---
HEIGHT: 5 ft 8 in WEIGHT: 183 lb 0 oz DATE OF STUDY: 04/27/[address]: Immanuel Yee DO 2-DIMENSIONAL: YES M.MODE: YES DOPPLER: YES COLOR FLOW: YES TDS: PORTABLE: YES DEFINITY: BUBBLE STUDY: DIAGNOSIS: NON ST ELEVATION MYOCARDIAL INFRACTION CARDIAC HISTORY: CATHERIZATION: NO SURGERY: NO PROSTHETIC VALVE: NO PACEMAKER: NO MEASUREMENTS (cm) DIASTOLIC (NORMALS) SYSTOLIC (NORMALS) IVSd 1.7 (0.6-1.2) LA Diam (1.9-4.0) LVEF 60-65% LVIDd 4.0 (3.5-5.7) LVIDs 2.6 (2.0-3.5) %FS 36% LVPWd 1.6 (0.6-1.2) Ao Diam 3.4 (2.0-3.7) 2 DIMENSIONAL ASSESSMENT: RIGHT ATRIUM: NORMAL LEFT ATRIUM: NORMAL RIGHT VENTRICLE: NORMAL LEFT VENTRICLE: SEVERE LEFT VENTRICULAR HYPERTROPHY TRICUSPID VALVE: TRACE TRICUSPID REGURGITATION MITRAL VALVE: TRACE MITRAL REGURGITATION PULMONIC VALVE: NOT SEEN AORTIC VALVE: MILD AORTIC INSUFFICIENCY PERICARDIAL EFFUSION: NONE AORTIC ROOT: NORMAL LEFT VENTRICULAR WALL MOTION: NORMAL DOPPLER/COLOR FLOW: SEE BELOW COMMENTS: 1. NORMAL LEFT VENTRICULAR EJECTION FRACTION 60-65% WITH NORMAL WALL MOTION 2. SEVERE CONCENTRIC LEFT VENTRICULAR HYPERTROPHY 3. GRADE I DIASTOLIC DYSFUNCTION TECHNOLOGIST: ASIYA HENAO
--- NOTE | 2025-04-30 12:24 | P.CNS ---
Date of Consult: 04/30/25 Chief Complaint: Dizziness History of Present Illness: Patient with PMH of HTN, LVH, presented with dizziness, chest tightness, denies any other cardiac symptoms. Allergies No Known Allergies Allergy (Unverified 08/13/24 21:49) Home medications list reviewed: Yes Home Medications: Aspirin [Aspirin EC] 81 mg PO DAILY 90 Days #90 tab 11/01/23 Atorvastatin Calcium [Lipitor] 40 mg PO BEDTIME 90 Days #90 tab 08/14/24 Losartan Potassium [Cozaar*] 25 mg PO DAILY 30 Days #15 tab 08/14/24 Metoprolol Tartrate [Lopressor*] 50 mg PO BID 30 Days #60 tab 08/14/24 Spironolactone [Aldactone*] 25 mg PO DAILY 30 Days #30 tab 08/14/24 - Past Medical/Surgical History Diabetic: No -: Nephrolithiasis -: Hypertension -: Appendectomy -: left knee surgery - Family History Father Medical History: Heart disease, Hypertension, GI disease Mother Medical History: Heart disease, Diabetes, Cancer - Social History Smoking Status: Current every day smoker Alcohol use: No CD- Drugs: No Caffeine use: Yes Place of Residence: Home Review of Systems 10-point ROS is otherwise unremarkable Physical Examination Temp Pulse Resp BP Pulse Ox 97.9 F 61 18 148/91 H 97 04/30/25 08:00 04/30/25 08:00 04/30/25 08:00 04/30/25 08:00 04/30/25 08:00 General: Alert, In no apparent distress HEENT: Atraumatic, PERRLA, Mucous membr. moist/pink, EOMI, Sclerae nonicteric Neck: Supple, 2+ carotid pulse no bruit, No LAD, Without JVD or thyroid abnormality Respiratory: Clear to auscultation bilaterally, Normal air movement Cardiovascular: Regular rate/rhythm, Normal S1 S2 Gastrointestinal: Normal bowel sounds, No tenderness Musculoskeletal: No tenderness Integumentary: No rashes Neurological: Normal gait, Normal speech, Normal tone, Normal affect Lymphatics: No axilla or inguinal lymphadenopathy - Problems (1) Hypertensive emergency Current Visit: No Status: Acute Plan: continue lopressor 50 mg po BID Add back losartan 50 mg daily (2) Non-STEMI (non-ST elevated myocardial infarction) Current Visit: No Status: Acute Plan: type 2 DC Patient had coronary angiogram in 2023 that shown mild CAD No further cardiac work up needed.
[2025-04-30 12:35] VITALS: TEMP 98.4
--- NOTE | 2025-04-30 13:15 | P.DS ---
Admission Date: 04/28/25 Discharge Date: 04/30/25 Disposition: ROUTINE DISCHARGE Discharge Condition: GOOD Reason for Admission: Dizziness Brief History of Present Illness: 54 yrs old Male with past medical history of hypertension, hep C, history of enlarged heart who was brought to ER with complaints of elevated blood pressure and generalized weakness and chest discomfort. Patient initially had headache bifrontal , and had a work up possible CVA with CT of the head which was negative. He states that his blood pressure has been elevated for the last few days and he started having headache. He saw the PCP today and was sent to the ER because of abnormal EKG and elevated blood pressure. Patient denies any chest pain but has some chest discomfort and a throbbing headache. Denies any shortness of breath. No fever or chills. Patient was assessed in the ER and was found to have elevated troponin and was admitted for further management. Upon admission he was seen by cardiology. Serial troponins remained relatively flat. He had a coronary angiogram in 2023 that showed mild CAD. No other further cardiac workup was indicated. He will be discharged home on Lopressor 50 mg twice daily alongside losartan 50 mg johanna y. Hospital Course: Physical Exam: Gen: Alert, NAD, Orientedx3 CV: Regular rate and rhythm, no edema Pulm: Nonlabored respirations on room air, clear bilaterally Abdomen: Soft, nontender, nondistended Neuro: Normal strength, normal affect Problem List: NSTEMI Hypertensive urgency, improved Headache Hx of Hep C on admission, presents with chest discomfort associated with weakness, headache, elevated BP CT brain (04/26): negative for any acute findings, noted small remote left caudate head lacunar infarct CTA neck (04/26): partially calcified mass in the right neck measuring 2.8 x 2 cm. CTA head (04/26): negative Troponins mildly elevated but trended flat. Peaked at 101--> 90 Cardiology consulted Monitor on telemetry BNP 4770. Rest of the labs unremarkable. Continue metoprolol 50mg BID Echo completed, pending report BP more controlled in 150-160s VTE: Heparin sq Code: Full Dispo: Home Pending cardiac recs Vital Signs/Physical Exam: Temp Pulse Resp BP Pulse Ox 98.4 F 66 18 119/78 97 04/30/25 12:00 04/30/25 12:04/30/25 12:04/30/25 12:00 04/30/25 12:00 Laboratory Data at Discharge: WBC 7.20 thou/uL (4.3-10.9) 04/29/25 07:34 Hgb 17.4 g/dL (13.6-17.9) 04/29/25 07:34 Hct 51.0 % (39.6-49.0) H 04/29/25 07:34 Plt Count 214 thou/uL (152-406) 04/29/25 07:34 PT 11.8 SECONDS (10-13.0) 04/26/25 19:17 INR 1.05 04/26/25 19:17 APTT 36.6 SECONDS (27.2-37.4) 04/26/25 19:17 Sodium 138 mEq/L (136-145) 04/29/25 07:34 Potassium 4.1 mEq/L (3.5-5.1) 04/29/25 07:34 BUN 17 mg/dL (7-18) 04/29/25 07:34 Creatinine 0.96 mg/dL (0.70-1.30) 04/29/25 07:34 Glucose 101 mg/dL (74-106) 04/29/25 07:34 Magnesium 1.9 mg/dL (1.6-2.4) 04/28/25 05:35 Total Bilirubin 0.7 mg/dL (0.2-1.0) 04/28/25 05:35 AST 42 U/L (15-37) H 04/28/25 05:35 ALT 47 U/L (16-61) 04/28/25 05:35 Alkaline Phosphatase 60 U/L (45-117) 04/28/25 05:35 Triglycerides 115 mg/dL (<150) 04/28/25 05:35 Cholesterol 140 mg/dL (<200) 04/28/25 05:35 HDL Cholesterol 40 mg/dL (40-60) 04/28/25 05:35 Cholesterol/HDL Ratio 3.50 04/28/25 05:35 Home Medications: Aspirin [Aspirin EC] 81 mg PO DAILY 90 Days #90 tab 11/01/23 Atorvastatin Calcium [Lipitor] 40 mg PO BEDTIME 90 Days #90 tab 08/14/24 Spironolactone [Aldactone*] 25 mg PO DAILY 30 Days #30 tab 08/14/24 Losartan Potassium [Cozaar*] 50 mg PO DAILY 30 Days #30 tab 04/30/25 Metoprolol Tartrate [Lopressor*] 50 mg PO BID 6AM 6PM 30 Days #60 tab 04/30/25 New Medications: Losartan Potassium [Cozaar*] 50 mg PO DAILY 30 Days #30 tab Metoprolol Tartrate [Lopressor*] 50 mg PO BID 6AM 6PM 30 Days #60 tab Followup: ERENDIRA WARD CENTR [Primary Care Provider] - 1-2 Weeks
[2025-04-30 16:36] VITALS: BP 131/67
== END 2025-04-30 16:25 | disposition home or self-care (01) | DRG 282 ==
LOC: ER 18:47 → ERHOLD 23:16 → 4TH 23:42 → OBSVTOIN 04-28 00:27
PROVIDERS: ADMIT Family Medicine; ATTEND Family Medicine
DX: I16.0 Hypertensive urgency (principal); I21.A1 Myocardial infarction type 2; I10 Essential (primary) hypertension; R51.9 Headache, unspecified; I25.10 Atherosclerotic heart disease of native coronary artery without angina pectoris; I51.7 Cardiomegaly; R53.1 Weakness; F17.210 Nicotine dependence, cigarettes, uncomplicated; Z71.6 Tobacco abuse counseling; Z86.19 Personal history of other infectious and parasitic diseases; Z82.49 Family history of ischemic heart disease and other diseases of the circulatory system; Z83.3 Family history of diabetes mellitus; Z80.9 Family history of malignant neoplasm, unspecified
CPT/HCPCS: 36415; 70450; 70496; 70498; 71045; 80048; 80053; 80061; 80076; 82565; 82947; 83735; 83880; 84484; 85025; 85610; 85730; 93005; 93306; 99285; G0378; J0360; J1644; J3360; J7030; Q9967